=== PATIENT | male | born 1950 | race Caucasian/White ===

== ENCOUNTER 2020-03-24 12:41 | Outpatient (REF) | payer MEDICARE, SELFPAY | END 2020-03-24 12:42 | disposition home or self-care (01) | LOC: HO.HMGCLDS 12:41 | PROVIDERS: PCP Internal Medicine; Visit Provider Internal Medicine | DX: Z11.59 Encounter for screening for other viral diseases (principal) | CPT/HCPCS: 36415; 87635 ==

== ENCOUNTER 2020-04-08 07:57 | Outpatient (REF) | payer MEDICARE, SELFPAY ==
[2020-04-08 08:50] LABS: Glucose Urine UA NEG (NEG); Leukocyte Esterase Urine NEG (NEG); Nitrite Urine NEG (NEG); Urine Blood NEG (NEG); Urine Ketones NEG (NEG); Urine Protein NEG (NEG-TRACE)
[2020-04-08 08:51] LABS: Appearance Urine CLEAR; Color Urine YELLOW
[2020-04-08 09:05] LABS: RBC Urine 0 /HPF (0); Squamous Epithelial Cell Urine TRACE /LPF; WBC Urine 0 /HPF (0-4)
[2020-04-08 10:09] LABS: Alanine Aminotransferase 13 U/L (0-40); Albumin Level 3.9 g/dL (3.5-5.0); Alkaline Phosphatase 75 U/L (39-117); Anion Gap 8 (12-20); Aspartate Amino Transferase 15 U/L (5-37); Blood Urea Nitrogen 16 mg/dL (9-16); Calcium 8.8 mg/dL (8.4-10.2); Carbon Dioxide 29 mmol/L (22-29); Chloride 107 mmol/L (96-108); Cholesterol 169 mg/dL; Estimated Glomerular Filt Rate > 60; Glucose Random 88 mg/dL (60-115); HDL Cholesterol 31 mg/dL; LDL Cholesterol Calculated 119 mg/dl; Potassium 4.5 mmol/l (3.3-5.1); Prostate Specific Antigen < 0.05 ng/mL (<0.05-4.0); Sodium 139 mmol/L (135-145); Total Protein 6.6 g/dL (6.5-8.0); Triglycerides 95 mg/dL
== END 2020-04-08 07:58 | disposition home or self-care (01) ==
LOC: HO.LAB 07:57
PROVIDERS: PCP Internal Medicine; Visit Provider Internal Medicine
DX: E78.00 Pure hypercholesterolemia, unspecified (principal); N39.0 Urinary tract infection, site not specified; Z85.46 Personal history of malignant neoplasm of prostate
CPT/HCPCS: 80053; 80061; 81001; 84153

== ENCOUNTER 2020-04-13 08:17 | Outpatient (REF) | payer MEDICARE, SELFPAY ==
[2020-04-13 09:44] LABS: MANUAL DIFF FLAG NO
[2020-04-13 10:06] LABS: Basophils Absolute Auto 0.1 X10*3/uL (0.0-0.2); Eosinophils Absolute Auto 0.2 X10*3/uL (0.0-0.4); Eosinophils Percent Auto 4.4 % (0-4); Hematocrit 43.9 % (42-52); Hemoglobin 14.6 g/dl (14.0-18.0); Imm Gran Abs Auto 0.01 X10*3/uL (0.00-0.03); Imm Gran Pct Auto 0.2 % (0.0-0.4); Lymphocytes Absolute Auto 1.9 X10*3/uL (1.2-4.9); Lymphocytes Percent Auto 38.4 % (20-40); Mean Corpuscular HGB Conc 33.3 g/dl (31.0-36.0); Mean Corpuscular Hemoglobin 30.5 pg (27.0-33.0); Mean Corpuscular Volume 91.8 fL (80-98); Mean Platelet Volume 11.2 fL (9.4-12.4); Monocytes Absolute Auto 0.5 X10*3/uL (0.1-1.2); Monocytes Percent Auto 9.2 % (2-11); Neutrophils Absolute Auto 2.3 X10*3/uL (2.0-8.3); Neutrophils Percent Auto 46.8 % (45-73); Platelet Count 192 X10*3/uL (160-400); Red Blood Count 4.78 X10*6/uL (4.60-5.80); Red Cell Distribution Width 12.7 % (11.0-16.0)
[2020-04-13 11:01] LABS: Glucose Urine UA NEG (NEG); Leukocyte Esterase Urine NEG (NEG); Nitrite Urine NEG (NEG); Specific Gravity - Urine 1.015 (1.005-1.025); Urine Blood NEG (NEG); Urine Ketones NEG (NEG); Urine Protein NEG (NEG-TRACE)
[2020-04-13 11:05] LABS: Blood Urea Nitrogen 15 mg/dL (9-16); Calcium 8.9 mg/dL (8.4-10.2); Estimated Glomerular Filt Rate > 60; Glucose Fasting 85 mg/dL (60-99)
[2020-04-13 11:07] LABS: Appearance Urine HAZY; Color Urine YELLOW
[2020-04-13 11:23] LABS: WBC Urine 0-2 /HPF (0-4)
[2020-04-13 11:24] LABS: Mucus Urine TRACE /LPF; RBC Urine 0-2 /HPF (0); Renal Epithelial Cells Urine 1+ /LPF; Squamous Epithelial Cell Urine TRACE /LPF
[2020-04-13 11:27] LABS: TSH reflex Free T4 1.92 mIU/mL (0.32-4.0)
[2020-04-13 11:56] LABS: Anion Gap 12 (12-20); Carbon Dioxide 27 mmol/L (22-29); Chloride 108 mmol/L (96-108); Potassium 4.8 mmol/l (3.3-5.1); Sodium 142 mmol/L (135-145)
== END 2020-04-13 08:18 | disposition home or self-care (01) ==
LOC: HO.LAB 08:17
PROVIDERS: PCP Internal Medicine; Referring Provider Nurse Practitioner Family; Visit Provider Internal Medicine
DX: J45.909 Unspecified asthma, uncomplicated (principal); N39.0 Urinary tract infection, site not specified; E78.00 Pure hypercholesterolemia, unspecified
CPT/HCPCS: 36415; 80048; 81001; 84443; 85025

== ENCOUNTER 2020-06-03 08:13 | Outpatient (REF) | payer MEDICARE, SELFPAY ==
--- NOTE | 2020-06-03 08:18 | US_ITS ---
EXAMINATION: US THYROID CLINICAL INFORMATION: Dysphagia, unspecified. COMPARISON: None TECHNIQUE: Linear transducer alonso-scale and color Doppler examination with attention to the region of the thyroid. FINDINGS: SIZE: Measurements of the thyroid lobes and nodules are given in sagittal, anteroposterior and transverse dimensions respectively. Right Thyroid Lobe: 3.8 x 1.3 x 1.4 cm, volume 3.5 mL. Parenchyma: The gland echotexture is homogeneous. Thyroid vascularity is normal. Left Thyroid Lobe: 3.7 x 1.2 x 1.4 cm, volume 3.4 mL. Parenchyma: The gland echotexture is homogeneous. Thyroid vascularity is normal. Isthmus: 0.1 cm in maximum AP dimension. RIGHT THYROID LOBE: No nodules. ISTHMUS: No nodules. LEFT THYROID LOBE: No nodules. NODES: No lymphadenopathy is seen in the tissue surrounding the thyroid gland. US/US thyroid IMPRESSION: Normal thyroid ultrasound.
== END 2020-06-03 08:14 | disposition home or self-care (01) ==
LOC: HO.HMGCX 08:13
PROVIDERS: PCP Internal Medicine; Visit Provider Nurse Practitioner Family
DX: R13.10 Dysphagia, unspecified (principal)
CPT/HCPCS: 76536

== ENCOUNTER 2020-07-09 09:17 | Outpatient (REF) | payer MEDICARE, SELFPAY ==
--- NOTE | 2020-07-09 09:27 | XR_ITS ---
EXAMINATION: XR HIP, LEFT CLINICAL INFORMATION: Pain COMPARISON: None TECHNIQUE: Two views of the left hip. FINDINGS: Bone alignment is normal. No fracture or dislocation is seen. There are small superior lateral acetabular osteophytes. No joint space narrowing is seen. Soft tissues are unremarkable. XR/XR hip LT min 2V IMPRESSION: Mild degenerative changes with small osteophytes.
== END 2020-07-09 09:18 | disposition home or self-care (01) ==
LOC: HO.XRAY 09:17
PROVIDERS: PCP Internal Medicine; Visit Provider Internal Medicine
DX: M25.552 Pain in left hip (principal)
CPT/HCPCS: 73502

== ENCOUNTER → 2020-07-12 10:03 | Outpatient (REF) | payer MEDICARE, SELFPAY ==
--- NOTE | 2020-07-12 10:07 | ECG_ITS ---
Test Reason : CP Blood Pressure : / mmHG Vent. Rate : 067 BPM Atrial Rate : 067 BPM P-R Int : 134 ms QRS Dur : 090 ms QT Int : 436 ms P-R-T Axes : 074 047 028 degrees QTc Int : 460 ms Normal sinus rhythm Normal ECG No previous ECGs available Referred By: Martin Uribe Electronically Signed By:APRYL SNOW
== END ==
LOC: HO.CARD 10:03
PROVIDERS: PCP Internal Medicine; Visit Provider Physician Assistant
DX: Z01.818 Encounter for other preprocedural examination (principal)
CPT/HCPCS: 93005

== ENCOUNTER → 2020-07-21 14:43 | Outpatient (BNVA) | payer MEDICARE, SELFPAY | PROVIDERS: PCP Internal Medicine; Visit Provider Urology | DX: N28.1 Cyst of kidney, acquired (principal); C61 Malignant neoplasm of prostate; N39.3 Stress incontinence (female) (male) | CPT/HCPCS: 99202 ==

== ENCOUNTER 2020-08-11 08:49 | Outpatient (REF) | payer MEDICARE, SELFPAY ==
--- NOTE | ~2020-08-11 | XR_ITS ---
EXAMINATION: XR KNEE, RIGHT CLINICAL INFORMATION: Right knee pain. COMPARISON: None TECHNIQUE: Four views of the right knee. FINDINGS: Bones and soft tissues are normal. No fracture or joint effusion. Alignment is anatomic. Joint spaces are well maintained. No abnormal soft tissue calcification. XR/XR knee RT 4V IMPRESSION: Unremarkable right knee.
--- NOTE | ~2020-08-11 | XR_ITS ---
EXAMINATION: XR SHOULDER, RIGHT CLINICAL INFORMATION: Right shoulder pain. COMPARISON: None TECHNIQUE: Three views of the right shoulder. FINDINGS: Mild right acromioclavicular degenerative joint changes are seen. The right glenohumeral joint is unremarkable. There is no acute fracture or dislocation. The soft tissues are unremarkable. XR/XR shoulder RT min 2V IMPRESSION: Mild right acromioclavicular degenerative joint changes. No acute abnormality.
== END 2020-08-11 08:50 | disposition home or self-care (01) ==
LOC: HO.HMGCX 08:49
PROVIDERS: PCP Internal Medicine; Visit Provider Hospitalist
DX: M25.561 Pain in right knee (principal)
CPT/HCPCS: 73030; 73564

== ENCOUNTER 2020-10-24 15:00 | Outpatient (RCR) | payer MEDICARE, SELFPAY ==
--- NOTE | 2020-09-27 14:25 | MHC.PT.EP ---
[facility] [place] Office [place] Office [place] Office [address] Erik Julio [address] [phone] F: [phone] F: [phone] F: [phone] F: [phone] Physical Therapy Plan of Care Date of Evaluation: 09/27/20 Date of Surgery: Diagnosis: RIGHT shoulder pain Assessment: 70 YO MALE REF TO PT S/P FALL OUTDOORS ON ICE ON 08/09/20. 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 FUNCTIONALLY, Pt HAS DIFFIC SLEEPING, REACHING, TASKS W HORIZ ADD, LIFTING/ THROWING DUE TO Rt SH PAIN. HE WOULD BENEFIT FROM PT TO ADDRESS TRAUMATIC IMPINGEMENT / Rt SH TRAUMA. Frequency and Duration: The patient will be seen 2x 5 WKS Short Term Goals: Pt'S Rt SH PAIN DECR TO 2-3/ 10 IN 3 WKS Pt DEMON WFL AROM Rt SH W/O PAINFULL ARC IN 3 WKS Inside Sales Advertising Executive Goals: Pt INDEP W HEP AND SELF-SX MGMT TECHN FOR Rt SH IN 5 WKS Pt DEMON WFL RIGHT SH STRENGTH W FUNCTIONAL MOB Pt RESUME REG ADLs EVIDENT W IMPROVED SPADI BY 10 POINTS (39/130 AT EVAL) Treatment Plan: Modalities to reduce pain, spasms and effusion. Manual therapy to restore motion and function. Therapeutic exercise to improve strength and flexibility. Neuromuscular re-education for posture and balance. Therapeutic activities to return to functional activities of daily living. Electronically signed by: Florinda Case,PT Please sign and return to therapist. Thank you for your referral.
--- NOTE | 2020-10-24 17:37 | MHC.PT.PR ---
[facility] [place] Office [place] Office [place] Office [address] Erik Julio [address] [phone] F: [phone] F: [phone] F: [phone] F: [phone] Physical Therapy Progress Note Diagnosis: RIGHT shoulder pain Date of Surgery: Date of Evaluation: 09/27/20 Treatments to Date: 5 Cancellations to Date: 0 No Shows to Date: 0 Subjective: Pt NOTES Rt SH WORSE IN THE AM- THEN Rt SH IS BETTER UNTIL APPROX 6PM, HE APPLIES ICE Pain Score and Location: 4 RIGHT ANT SH Objective Measures: Rt SH AROM SUPINE: FLEX 150* W PAINFUL ARC; ABD 45* W PAIN AND WEAKNESS, ER (IN 90* ABD) TO 65* Rt SH AROM IN STANDING: FLEX 150* W PAINFUL ARC; EXT 45*, IR TO L4 LEVEL; ABLE TO HORIZ ABD Rt UE TO REACH Lt AXILLA Rt SH MMT: ER 4-/5; IR 5-/5, FE 3+/5, ABD 3+/5 (+) Rt NEER'S IMPINGEMENT, (+) DROP ARM Rt; (+) Rt SUBACROMIAL IRRIT AND (+)POP/CLICK Assessment: 10/24: Pt W (+) RESIDUAL Rt SH SUBACROMIAL PAIN AND RC WEAKNESS (ESPEC ABD, ER, FLEX)- HIS PAIN HAS NOT BEEN CONSISTENTLY REDUCED, HE HAS BEEN TRYING TO BE CAUTIOUS WITH HIS Rt UE W ADLs/ ETC; HE APPEARS TO HAVE IMPINGEMENT LIKE SXS (TRAUMATIC) W RC WEAKNESS; WE HAVE TRIALED KINESIOTAPE, ES, ICE, SOFT TISSUE MOBILIZATION, TRIGGER POINT WORK, ROM, AND SCAP/ POST RC STABILIZATION / STRENGTHENING- Pt HAS NOT IMPROVED CONSISTENTLY AND WITH HIS SXS WE ARE REF HIM BACK TO DR ELIZALDE AND PLACING PT ON HOLD. AT EVAL: 70 YO MALE REF TO PT S/P FALL OUTDOORS ON ICE ON 08/09/20. 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 FUNCTIONALLY, Pt HAS DIFFIC SLEEPING, REACHING, TASKS W HORIZ ADD, LIFTING/ THROWING DUE TO Rt SH PAIN. HE WOULD BENEFIT FROM PT TO ADDRESS TRAUMATIC IMPINGEMENT / Rt SH TRAUMA. PT Plan: Frequency and Duration: The patient will be seen 2x 5 WKS Treatment Plan: Therapeutic Exercise Dynamic Therapeutic Activities Neuromuscular Re-ed Manual Therapies Joint Mobilization Taping Home Exercise Program Patient Education Hot or Cold Pack Reviewed/ Agreed with Student Documentation: N/A Therapist: Thank you once again for your referral.
--- NOTE | 2020-11-29 13:49 | MHC.PT.DC ---
[facility] [place] Office [place] Office [place] Office [address] Erik Julio [address] [phone] F: [phone] F: [phone] F: [phone] F: [phone] Physical Therapy Discharge Report Diagnosis: RIGHT shoulder pain Date of Surgery: Date of Evaluation: 09/27/20 Date of Discharge: 11/29/20 Treatments to Date: 5 Cancellations to Date: 0 No Shows to Date: 0 Discharge Status: Independent with HEP Patient Elected to Stop Recommend MD Follow-up Discharge Summary: Pt W (+) RESIDUAL Rt SH SUBACROMIAL PAIN AND RC WEAKNESS (ESPEC ABD, ER, FLEX)- HIS PAIN HAS NOT BEEN CONSISTENTLY REDUCED, HE HAS BEEN TRYING TO BE CAUTIOUS WITH HIS Rt UE W ADLs/ ETC; HE APPEARS TO HAVE IMPINGEMENT LIKE SXS (TRAUMATIC) W RC WEAKNESS; WE HAVE TRIALED KINESIOTAPE, ES, ICE, SOFT TISSUE MOBILIZATION, TRIGGER POINT WORK, ROM, AND SCAP/ POST RC STABILIZATION / STRENGTHENING- Pt HAS NOT IMPROVED CONSISTENTLY AND WITH HIS SXS WE ARE REF HIM BACK TO DR ELIZALDE AND PLACING PT ON HOLD. Pt PHONED AND DISCHARGED HIMSELF AT THIS TIME. AT EVAL: 70 YO MALE REF TO PT S/P FALL OUTDOORS ON ICE ON 08/09/20. 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 FUNCTIONALLY, Pt HAS DIFFIC SLEEPING, REACHING, TASKS W HORIZ ADD, LIFTING/ THROWING DUE TO Rt SH PAIN. HE WOULD BENEFIT FROM PT TO ADDRESS TRAUMATIC IMPINGEMENT / Rt SH TRAUMA. Electronically signed by: Florinda Case PT. Please sign and return to therapist. Thank you for your referral.
== END 2020-11-29 13:51 | disposition other institution (70) ==
LOC: HO.PTCHIC 15:00
PROVIDERS: PCP Internal Medicine; Visit Provider Internal Medicine
DX: M25.511 Pain in right shoulder (principal)
CPT/HCPCS: 97014; 97110; 97140; 97162

== ENCOUNTER 2020-10-31 15:43 | Outpatient (REF) | payer MEDICARE, SELFPAY ==
--- NOTE | ~2020-10-31 | MR_ITS ---
EXAMINATION: MR KNEE WITHOUT CONTRAST, RIGHT CLINICAL INFORMATION: Pain in right knee COMPARISON: Radiograph dated 08/11/2020 TECHNIQUE: MRI of the knee without contrast was performed using routine sequences on a high-field scanner. FINDINGS: MENISCI: Medial Meniscus: A horizontal cleavage tear of the posterior horn and body extends to the free edge and undersurface. There is an associated multilocular cysts at the posteromedial joint capsule which may correspond to a parameniscal cyst or a loculated focus of fluid at the semimembranosus bursa. This fluid collection measures 2 cm in this dimension. Lateral Meniscus: Intact LIGAMENTS: Cruciate: ACL is intact. The PCL is thickened at its mid substance (1.3 cm) with a probable partial tear of the more medial fibers. The majority of the ligament remains intact. Collateral: Intact EXTENSOR MECHANISM: Intact ARTICULAR CARTILAGE/BONE: Patellofemoral Compartment: Articular cartilage of the patella is relatively well preserved. Moderate partial-thickness articular cartilage loss is present in the central trochlea over an area measuring 2.5 x 2 cm with areas of full-thickness chondral fissuring, articular cortical irregularity, and subchondral edema. Medial Compartment: Focal partial-thickness cartilage loss is present at the posterior weightbearing surface of the medial condyle. Lateral Compartment: Normal JOINT FLUID AND BURSAE: Small joint effusion. As noted above, there is a small focus of fluid in the region of the Smith's cyst and semitendinosus bursa which may correspond to a parameniscal cyst arising from the medial meniscus at the posterior horn. MR/MR knee RT wo con IMPRESSION: 1. Partial tear of the PCL at its mid substance. The majority of the ligament remains intact. 2. Horizontal cleavage tear of the posterior horn and body of the medial meniscus with a probable 2 cm posterior parameniscal cyst. 3. 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 More minimal osteoarthritis in the medial compartment. 4. Small joint effusion.
== END 2020-10-31 15:44 | disposition home or self-care (01) ==
LOC: HO.MRI 15:43
PROVIDERS: Visit Provider Internal Medicine
DX: M25.561 Pain in right knee (principal)
CPT/HCPCS: 73721

== ENCOUNTER 2020-11-01 15:47 | Outpatient (REF) | payer MEDICARE, SELFPAY ==
--- NOTE | ~2020-11-01 | MR_ITS ---
EXAMINATION: MR KNEE WITHOUT CONTRAST, LEFT CLINICAL INFORMATION: Unspecified fall, initial encounter. Patient reports left knee pain (anterior and posterior), weakness, symptoms for 2 months after fall injury, and no previous surgery. COMPARISON: None TECHNIQUE: MRI of the knee without contrast was performed using routine sequences on a high-field scanner. FINDINGS: MENISCI: Medial Meniscus: There is attenuation of the posterior horn of the medial meniscus with fraying of the attenuated and blunted inner margin as well as a superimposed small tear. There is moderate attenuation of the body. There is mild medial extrusion of the body. Lateral Meniscus: Intact. LIGAMENTS: Cruciate: Mild patchy and streaky increased T2 signal in the proximal posterior cruciate ligament may represent mucoid degeneration. The anterior cruciate ligament is intact. Collateral: Intact EXTENSOR MECHANISM: Intact ARTICULAR CARTILAGE/BONE: Patellofemoral Compartment: There are tiny marginal osteophytes. The cartilage is grossly intact. Medial Compartment: There is diffuse patchy snqjnxkm-ai-ngyp-grade cartilage loss in the weightbearing medial compartment. There are patchy areas of underlying bone marrow edema and a few small subchondral degenerative cysts. There are small marginal osteophytes. Lateral Compartment: Normal JOINT FLUID AND BURSAE: Small joint effusion. There is a small multiloculated ganglion cyst lateral to the lateral femoral condyle. MR/MR knee LT wo con IMPRESSION: 1. Degeneration, attenuation, fraying, and focal tear of the posterior horn of the medial meniscus. Degeneration and attenuation of the body with mild medial extrusion. 2. Nkailzzt-lm-ktzv-grade osteoarthritis in the medial compartment. 3. Small joint effusion. 4. Small lateral multiloculated ganglion cyst.
== END 2020-11-01 15:48 | disposition home or self-care (01) ==
LOC: HO.MRI 15:47
PROVIDERS: Visit Provider Internal Medicine
DX: M25.562 Pain in left knee (principal); Z91.81 History of falling
CPT/HCPCS: 73721

== ENCOUNTER 2020-11-02 15:43 | Outpatient (REF) | payer MEDICARE, SELFPAY ==
--- NOTE | ~2020-11-02 | MR_ITS ---
EXAMINATION: MR SHOULDER WITHOUT CONTRAST, RIGHT CLINICAL INFORMATION: Right shoulder pain. COMPARISON: Radiograph dated 08/11/2020. TECHNIQUE: MRI of the shoulder without contrast was performed on a high-field scanner. FINDINGS: ROTATOR CUFF: A full-thickness, complete tear of the supraspinatus tendon measures 3.3 cm AP with retraction of the torn fibers by 3 cm the level of the glenoid fossa. This tear extends anteriorly into the coracohumeral ligament. The infraspinatus tendon is intact posteriorly with probable undersurface fraying of the more anterior fibers in addition to the mild infraspinatus tendinosis. There is mild subscapularis tendinosis without discrete tear. No muscle atrophy or fatty infiltration. BICEPS: Normal. CORACOACROMIAL ARCH: The undersurface of the acromion is minimally curved with small anterolateral subacromial spur. Moderate acromioclavicular osteoarthritis. LABRUM/CAPSULE: A cleft of fluid undercutting the superior labrum from the anterosuperior through the posterosuperior quadrants is favored to correspond to a sublabral sulcus. A nondisplaced tear is also possible. Labrum is otherwise intact. There is mild capsular thickening and edema at the axillary pouch. GLENOHUMERAL JOINT/MARROW: Kpavs-un-ddxbchbv-sized glenohumeral joint effusion. Fluid extends into the subacromial-subdeltoid bursa. Small marginal osteophytes are present at the glenoid and humeral head. Small glenohumeral joint effusion. MR/MR shoulder RT wo con IMPRESSION: 1. Full-thickness, complete tear of the supraspinatus tendon measuring 3.3 x 3 cm (AP by longitudinal) without significant associated muscle atrophy. 2. Mild subscapularis and infraspinatus tendinosis 3. Moderate acromioclavicular osteoarthritis. Small anterolateral subacromial spur. 4. Minimal glenohumeral osteoarthritis.
== END 2020-11-02 15:44 | disposition home or self-care (01) ==
LOC: HO.MRI 15:43
PROVIDERS: Visit Provider Internal Medicine
DX: M25.511 Pain in right shoulder (principal)
CPT/HCPCS: 73221

== ENCOUNTER 2020-12-15 06:38 | Outpatient (REF) | payer MEDICARE, SELFPAY ==
[2020-12-15 07:21] LABS: MANUAL DIFF FLAG NO
[2020-12-15 07:26] LABS: Basophils Absolute Auto 0.1 X10*3/uL (0.0-0.2); Basophils Percent Auto 0.8 % (0-2); Eosinophils Absolute Auto 0.1 X10*3/uL (0.0-0.4); Eosinophils Percent Auto 1.7 % (0-4); Hemoglobin 15.1 g/dl (14.0-18.0); Imm Gran Abs Auto 0.02 X10*3/uL (0.00-0.03); Imm Gran Pct Auto 0.3 % (0.0-0.4); Lymphocytes Percent Auto 30.6 % (20-40); Mean Corpuscular HGB Conc 32.8 g/dl (31.0-36.0); Mean Corpuscular Hemoglobin 30.4 pg (27.0-33.0); Mean Corpuscular Volume 92.7 fL (80-98); Mean Platelet Volume 10.8 fL (9.4-12.4); Monocytes Absolute Auto 0.6 X10*3/uL (0.1-1.2); Monocytes Percent Auto 8.8 % (2-11); Neutrophils Absolute Auto 3.7 X10*3/uL (2.0-8.3); Neutrophils Percent Auto 57.8 % (45-73); Platelet Count 197 X10*3/uL (160-400); Red Blood Count 4.96 X10*6/uL (4.60-5.80); Red Cell Distribution Width 13.5 % (11.0-16.0); White Blood Count 6.4 X10*3/uL (4.8-10.8)
[2020-12-15 07:56] LABS: Alanine Aminotransferase 14 U/L (0-40); Albumin Level 4.1 g/dL (3.5-5.0); Alkaline Phosphatase 71 U/L (39-117); Anion Gap 10 (12-20); Aspartate Amino Transferase 15 U/L (5-37); Bilirubin Total 0.7 mg/dL (0.0-1.0); Blood Urea Nitrogen 22 mg/dL (9-16); Calcium 9.4 mg/dL (8.4-10.2); Carbon Dioxide 28 mmol/L (22-29); Chloride 110 mmol/L (96-108); Cholesterol 182 mg/dL; Estimated Glomerular Filt Rate > 60; Glucose Random 98 mg/dL (60-115); HDL Cholesterol 42 mg/dL; LDL Cholesterol Calculated 126 mg/dl; Potassium 4.8 mmol/L (3.3-5.1); Sodium 143 mmol/L (135-145); Total Protein 6.7 g/dL (6.5-8.0); Triglycerides 73 mg/dL
[2020-12-15 08:24] LABS: Glucose Urine UA NEG (NEG); Leukocyte Esterase Urine NEG (NEG); Nitrite Urine NEG (NEG); PH 5.5 (5.0-8.0); Prostate Specific Antigen Scr < 0.05 ng/mL (<0.05-4.0); Specific Gravity - Urine >= 1.030 (1.005-1.025); Thyroid Stimulating Hormone 1.72 uIU/mL (0.32-4.0); Urine Blood NEG (NEG); Urine Ketones NEG (NEG); Urine Protein NEG (NEG-TRACE)
[2020-12-15 08:25] LABS: Appearance Urine CLEAR; Color Urine YELLOW
[2020-12-15 08:32] LABS: Mucus Urine 1+ /LPF; RBC Urine 0 /HPF (0); Squamous Epithelial Cell Urine TRACE /LPF; WBC Urine 0-2 /HPF (0-4)
[2020-12-15 10:33] LABS: Folate 8.5 ng/mL (> or = 4.0); Vitamin B12 210 pg/mL (200-900)
== END 2020-12-15 06:39 | disposition home or self-care (01) ==
LOC: HO.LAB 06:38
PROVIDERS: PCP Internal Medicine; Visit Provider Internal Medicine
DX: Z12.5 Encounter for screening for malignant neoplasm of prostate (principal); E78.00 Pure hypercholesterolemia, unspecified
CPT/HCPCS: 36415; 80053; 80061; 81001; 82607; 82746; 84153; 84439; 84443; 85025

== ENCOUNTER 2021-03-29 11:13 | Outpatient (REF) | payer MEDICARE, SELFPAY ==
--- NOTE | 2021-03-29 11:20 | ECG_ITS ---
Test Reason : preproc exam Blood Pressure : / mmHG Vent. Rate : 063 BPM Atrial Rate : 063 BPM P-R Int : 112 ms QRS Dur : 092 ms QT Int : 432 ms P-R-T Axes : -10 057 034 degrees QTc Int : 442 ms Normal sinus rhythm Normal ECG When compared with ECG of 12-JUL-2020 10:19, No significant change was found Referred By: Myles Eduardo Electronically Signed By:MARIO ALBERTO SANCHEZ
[2021-03-29 11:37] LABS: MANUAL DIFF FLAG NO
[2021-03-29 11:57] LABS: Basophils Percent Auto 0.1 % (0-2); Eosinophils Absolute Auto 0.1 X10*3/uL (0.0-0.4); Eosinophils Percent Auto 1.4 % (0-4); Hematocrit 43.2 % (42-52); Hemoglobin 14.6 g/dl (14.0-18.0); Imm Gran Abs Auto 0.06 X10*3/uL (0.00-0.03); Imm Gran Pct Auto 0.7 % (0.0-0.4); Lymphocytes Absolute Auto 1.6 X10*3/uL (1.2-4.9); Lymphocytes Percent Auto 18.8 % (20-40); Mean Corpuscular HGB Conc 33.8 g/dl (31.0-36.0); Mean Corpuscular Hemoglobin 31.1 pg (27.0-33.0); Mean Corpuscular Volume 92.1 fL (80-98); Mean Platelet Volume 10.7 fL (9.4-12.4); Monocytes Absolute Auto 0.8 X10*3/uL (0.1-1.2); Monocytes Percent Auto 9.7 % (2-11); Neutrophils Absolute Auto 5.7 X10*3/uL (2.0-8.3); Neutrophils Percent Auto 69.3 % (45-73); Platelet Count 199 X10*3/uL (160-400); Red Blood Count 4.69 X10*6/uL (4.60-5.80); White Blood Count 8.3 X10*3/uL (4.8-10.8)
[2021-03-29 12:27] LABS: Anion Gap 10 (12-20); Blood Urea Nitrogen 17 mg/dL (9-16); Calcium 9.2 mg/dL (8.4-10.2); Carbon Dioxide 27 mmol/L (22-29); Chloride 108 mmol/L (96-108); Estimated Glomerular Filt Rate > 60; Glucose Random 89 mg/dL (60-115); Potassium 4.7 mmol/L (3.3-5.1); Sodium 140 mmol/L (135-145)
== END 2021-03-29 11:14 | disposition home or self-care (01) ==
LOC: HO.LAB 11:13
PROVIDERS: PCP Internal Medicine; Visit Provider Internal Medicine
DX: Z01.818 Encounter for other preprocedural examination (principal)
CPT/HCPCS: 36415; 80048; 85025; 93005

== ENCOUNTER 2021-07-11 10:44 | Outpatient (REF) | payer MEDICARE, SELFPAY ==
--- NOTE | ~2021-07-11 | US_ITS ---
EXAMINATION: US RETROPERITONEAL LIMITED (RENAL ONLY) CLINICAL INFORMATION: Calculus of kidney. COMPARISON: Ultrasound kidneys and bladder 03/04/2020. CT abdomen and pelvis 05/03/2015. X-ray abdomen KUB 03/29/2015. Ultrasound abdomen 07/05/2008. TECHNIQUE: Real-time imaging of the kidneys. FINDINGS: RIGHT KIDNEY: 11.0 x 6.1 x 5.6 cm (SAG x AP x TRV). The kidney is normal in size, contour, and echogenicity. There is renal cortical thinning. There is a 1.4 x 1.3 x 1.2 cm cyst in the midpole. No renal calculi or hydronephrosis. LEFT KIDNEY: 11.2 x 5.2 x 4.2 cm (SAG x AP x TRV). The kidney is normal in size, contour, and echogenicity. There is renal cortical thinning. There is a 7.8 x 7.6 x 7.6 cm in the medial upper pole. No renal calculi or hydronephrosis. US/US renal BI IMPRESSION: Bilateral renal cortical thinning. Bilateral renal cysts.
== END 2021-07-11 10:45 | disposition home or self-care (01) ==
LOC: HO.US 10:44
PROVIDERS: PCP Internal Medicine; Visit Provider Urology
DX: N20.0 Calculus of kidney (principal)
CPT/HCPCS: 76775

== ENCOUNTER → 2021-07-28 08:28 | Outpatient (BNVA) | payer MEDICARE, SELFPAY | PROVIDERS: Visit Provider Urology | DX: C61 Malignant neoplasm of prostate (principal); N28.1 Cyst of kidney, acquired; N39.3 Stress incontinence (female) (male) | CPT/HCPCS: Q3014 ==

== ENCOUNTER 2021-08-16 10:15 | Outpatient (REF) | payer MEDICARE, SELFPAY ==
--- NOTE | ~2021-08-16 | US_ITS ---
EXAMINATION: US VENOUS ULTRASOUND WITH DOPPLER LOWER EXTREMITY, LEFT CLINICAL INFORMATION: Swelling COMPARISON: None TECHNIQUE: Ultrasound of the deep veins is performed from the hip to the calf with compression sonography and color and pulse Doppler assessment. Spectral analysis with color-flow imaging is performed. FINDINGS: There is normal venous compression and respiratory variation and augmented flow. The visualized common femoral vein, superficial femoral vein, profunda femoral vein, and the popliteal vein shows no evidence of deep venous thrombosis. Calf veins are not well evaluated. There appears to be slow flow in the visualized calf veins. There is a fluid collection in the medial popliteal fossa measuring 1 x 3.5 cm in sagittal and AP dimension questionable for a Smith's cyst. The contralateral right common femoral vein is patent. US/US venous duplex LE LT IMPRESSION: No DVT demonstrated in the left lower extremity. Calf veins not well evaluated. Fluid collection in the popliteal fossa questionable for a Smith's cyst.
== END 2021-08-16 10:16 | disposition home or self-care (01) ==
LOC: HO.US 10:15
PROVIDERS: PCP Internal Medicine; Visit Provider Internal Medicine
DX: R60.0 Localized edema (principal); M79.89 Other specified soft tissue disorders
CPT/HCPCS: 93971

== ENCOUNTER → 2021-09-08 09:29 | Outpatient (BNVA) | payer MEDICARE, SELFPAY | PROVIDERS: PCP Internal Medicine; Visit Provider Internal Medicine Pulmonary Disease | DX: R05.3 Chronic cough (principal); K21.9 Gastro-esophageal reflux disease without esophagitis; Z77.090 Contact with and (suspected) exposure to asbestos | CPT/HCPCS: 99202 ==

== ENCOUNTER 2021-09-13 08:22 | Outpatient (REF) | payer MEDICARE, SELFPAY ==
--- NOTE | ~2021-09-13 | XR_ITS ---
EXAMINATION: XR CHEST CLINICAL INFORMATION: Asbestos exposure COMPARISON: Previous chest x-ray February 2020 TECHNIQUE: 2 views of the chest were obtained. FINDINGS: The cardiac and mediastinal contours are stable. The lungs are clear. There is no pleural effusion or pneumothorax. There are mild degenerative changes of the spine. XR/XR chest 2V IMPRESSION: Normal chest.
== END 2021-09-13 08:23 | disposition home or self-care (01) ==
LOC: HO.XRAY 08:22
PROVIDERS: PCP Internal Medicine; Visit Provider Internal Medicine Pulmonary Disease
DX: Z77.090 Contact with and (suspected) exposure to asbestos (principal)
CPT/HCPCS: 71046

== ENCOUNTER 2021-10-20 09:32 | Outpatient (REF) | payer MEDICARE, SELFPAY ==
--- NOTE | 2021-10-20 13:15 | PFT_ITS ---
INDICATION: Asbestos exposure. SPIROMETRY: FEV1 to FVC of 85% with an FEV1 of 3.91 L, which is 142% predicted, an FVC of 4.61, which is 121% predicted. No significant response to bronchodilators noted. Maximum voluntary ventilation 129% predicted. Total lung capacity 110% predicted. Diffusion capacity, DLCO 67% predicted. COMPARISONS: PFTs from 2017. INTERPRETATION: No obstructive nor restrictive ventilatory defects are appreciated. No significant response to bronchodilators noted. Normal maximum voluntary ventilation. Lung volumes are within normal limits. The patient does have an isolated mild diffusion impairment. This could be secondary to occult interstitial lung conditions. Should also correct for hemoglobin. When compared to 2017, significant decrease in the FVC, trend decrease in the FEV1, trend decrease in the total lung capacity, and a significant decrease in the diffusion capacity. Clinical correlation warranted. MD JONATHON Joseph/MARSHA / [id number]
== END 2021-10-20 09:33 | disposition home or self-care (01) ==
LOC: HO.RESP 09:32
PROVIDERS: PCP Internal Medicine; Visit Provider Internal Medicine Pulmonary Disease
DX: Z77.090 Contact with and (suspected) exposure to asbestos (principal)
CPT/HCPCS: 94060; 94727; 94729

== ENCOUNTER 2021-10-26 09:47 | Outpatient (REF) | payer MEDICARE, SELFPAY ==
--- NOTE | ~2021-10-26 | CT_ITS ---
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 COMPARISON: Chest 09/13/2021 TECHNIQUE: Multidetector volumetric CT imaging of the chest was done. Axial MIP volume rendering provided. Sagittal and coronal reformatted images were obtained. This CT examination was performed using dose optimization techniques as appropriate, variously including the following: *Automated exposure control *Adjustment of mA and/or kV according to patient size (this includes techniques or standardized protocols for targeted exams where dose is matched to indication/reason for exam; i.e. extremities or head) *Use of iterative reconstruction technique DLP: 207 mGy-cm FINDINGS: SERVER MANAGER: Unremarkable. LUNGS: The lungs are well-expanded and clear acute pneumonic process. There is a 2 mm nodule right major fissure axial image 85/8 likely cyst intrafissural lymph node. Similar findings are seen in the left major fissure on axial image 112/8. There is a 2 mm nodule right lower lobe peripherally based axial image 138/8. No additional nodules, mass or consolidation seen. No groundglass density. There is no evidence of bronchiectasis. MEDIASTINUM: The thyroid lobes are asymmetrical but unremarkable. The central trachea and the bronchi widely patent. Heart size and the great vessels are normal caliber there is no pericardial effusion seen. There is minimal ventral calcification. PLEURA: There is no pleural effusion. No pleural mass or thickening. No calcified pleural plaque seen. AXILLA: Small shotty lymph nodes in the axilla. The chest wall is unremarkable. UPPER ABDOMEN: There is 6 mm hypodensity segment 7/8 right hepatic lobe. No additional lesions seen there is no intrahepatic ductal dilatation. Gallbladder, pancreas, spleen and bilateral adrenal glands are unremarkable. OSSEOUS STRUCTURES: No lytic or sclerotic process seen. CT/CT chest wo con IMPRESSION: Small intrafissural lymph nodes as described above. There is 2 mm nodule right lower lobe. No pleural calcification, abnormal mediastinal or axillary lymphadenopathy. Punctate hypodensity right hepatic lobe, too small to correctly characterize. Fleischner guidelines were followed.
== END 2021-10-26 09:48 | disposition home or self-care (01) ==
LOC: HO.CT 09:47
PROVIDERS: Visit Provider Internal Medicine Pulmonary Disease
DX: Z77.090 Contact with and (suspected) exposure to asbestos (principal)
CPT/HCPCS: 71250

== ENCOUNTER → 2021-11-02 13:17 | Outpatient (BNVA) | payer MEDICARE, SELFPAY | PROVIDERS: PCP Internal Medicine; Visit Provider Internal Medicine Pulmonary Disease | DX: R05.3 Chronic cough (principal) | CPT/HCPCS: 99212 ==

== ENCOUNTER 2021-12-19 07:21 | Outpatient (REF) | payer MEDICARE, SELFPAY ==
[2021-12-19 07:35] LABS: MANUAL DIFF FLAG NO
[2021-12-19 07:46] LABS: Basophils Absolute Auto 0.1 X10*3/uL (0.0-0.2); Eosinophils Absolute Auto 0.2 X10*3/uL (0.0-0.4); Eosinophils Percent Auto 3.6 % (0-4); Hematocrit 42.1 % (42.0-52.0); Imm Gran Abs Auto 0.02 X10*3/uL (0.00-0.03); Imm Gran Pct Auto 0.3 % (0.0-0.4); Lymphocytes Absolute Auto 2.4 X10*3/uL (1.2-4.9); Lymphocytes Percent Auto 40.4 % (20-40); Mean Corpuscular HGB Conc 33.3 g/dl (31.0-36.0); Mean Corpuscular Hemoglobin 30.1 pg (27.0-33.0); Mean Corpuscular Volume 90.5 fL (80.0-98.0); Mean Platelet Volume 10.8 fL (9.4-12.4); Monocytes Absolute Auto 0.6 X10*3/uL (0.1-1.2); Monocytes Percent Auto 9.7 % (2-11); Neutrophils Absolute Auto 2.6 x10*3/uL (2.0-8.3); Platelet Count 195 X10*3/uL (160-400); Red Blood Count 4.65 X10*6/uL (4.60-5.80); Red Cell Distribution Width 13.5 % (11.0-16.0); White Blood Count 5.9 X10*3/uL (4.8-10.8)
[2021-12-19 08:31] LABS: Alanine Aminotransferase 11 U/L (0-40); Albumin Level 3.9 g/dL (3.5-5.0); Alkaline Phosphatase 80 U/L (39-117); Anion Gap 11 (12-20); Aspartate Amino Transferase 14 U/L (5-37); Bilirubin Total 0.4 mg/dL (0.0-1.0); Blood Urea Nitrogen 23 mg/dL (9-16); Calcium 8.9 mg/dL (8.4-10.2); Carbon Dioxide 25 mmol/L (22-29); Chloride 110 mmol/L (96-108); Cholesterol 182 mg/dL; Estimated Glomerular Filt Rate > 60; Glucose Random 97 mg/dL (60-115); HDL Cholesterol 36 mg/dL; LDL Cholesterol Calculated 131 mg/dl; Sodium 141 mmol/L (135-145); Total Protein 6.6 g/dL (6.5-8.0); Triglycerides 76 mg/dL
[2021-12-19 08:54] LABS: Thyroid Stimulating Hormone 3.02 uIU/mL (0.32-4.0)
[2021-12-19 09:26] LABS: Folate 6.2 ng/mL (> or = 4.0); Vitamin B12 1751 pg/mL (200-900)
== END 2021-12-19 07:22 | disposition home or self-care (01) ==
LOC: HO.LAB 07:21
PROVIDERS: PCP Internal Medicine; Visit Provider Internal Medicine
DX: E78.00 Pure hypercholesterolemia, unspecified (principal)
CPT/HCPCS: 36415; 80053; 80061; 82607; 82746; 84439; 84443; 85025

== ENCOUNTER 2022-03-12 09:23 | Day surgery (SDC) | payer MEDICARE, SELFPAY ==
[2022-03-07 11:53] VITALS: BMI 25.9
--- NOTE | 2022-03-09 08:48 | HO.ANESPROP2 ---
Documented by User: Celina Tran NP 03/09/22 08:53 HPI - Anesthesia Eval Consult details Narrative: 72yo M for Colonoscopy PMF Active Problems Active Problems: All Active Problems (Updated 03/07/22 @ 11:18 by Maxine Gurrola, MART) Urinary tract infection (Acute) Dysphagia (Acute) Hip pain, left (Acute) Left cataract (Acute) Complex renal cyst (Acute) Prostate cancer (Acute) Stress incontinence, male (Acute) Right shoulder pain (Acute) Right knee pain (Acute) Tick bite (Acute) Fall (Acute) Knee pain, left (Acute) Acute meniscal tear of knee (Acute) Osteoarthritis of knees, bilateral (Acute) Vitamin B12 deficiency (Acute) Travel advice encounter (Acute) Low back pain (Acute) Generalized anxiety disorder (Acute) Tubular adenoma of colon (Acute) Peripheral neuropathy (Acute) Renal cyst (Acute) Medicare annual wellness visit, initial (Acute) Stress incontinence (Acute) Constipation (Acute) Left leg swelling (Acute) Numbness of toes (Acute) H/O asbestos exposure (Acute) Chronic cough (Acute) Impacted cerumen of both ears (Acute) Eczema (Acute) Peripheral vascular disease (Acute) COVID-19 virus infection (Acute) History of arthroplasty of left knee (Acute) Asthma (Acute) GERD (gastroesophageal reflux disease) (Acute) Hypercholesterolemia (Acute) Past Medical History Medical History Asbestos exposure Asthma Diastasis recti GERD (gastroesophageal reflux disease) History of prostate cancer Hypercholesterolemia Peptic ulcer disease Post herpetic neuralgia Pulmonary nodule Vitamin D deficiency Family History Family History Father Colon cancer Mother CVD (cardiovascular disease) Myocardial infarction Surgical History Surgical History History of arthroplasty of left knee History of inguinal hernia repair History of nephrolithiasis History of prostatectomy History of tonsillectomy History of total left knee replacement Hx of colonoscopy Social History Social History Housing: House Alcohol intake: never Patient Tobacco Use Status: Never used Tobacco e-Cigarette/Vaping Use: Never Used Second Hand Smoke Exposure: No Are you DNR?: No Advance Directives: No Advance Directives Information Provided: Yes Recently lost weight without trying: No Nutrition Risks: No Nutritional Risk service: No Current occupational status: retired Cognitive needs: No Hearing needs: Yes Vision needs: Yes Meds Allergies Allergy/AdvReac Type Severity Reaction Status Date / Time SALT Allergy Unknown Unknown Uncoded 03/07/22 11:29 SIMVASTATIN Allergy Unknown heart burn Uncoded 03/07/22 11:29 from strong dosage Home Medications Medication Instructions Recorded Confirmed Last Taken Type cholecalciferol (vitamin D3) 25 25 mcg PO DAILY 04/12/20 03/07/22 Unknown History mcg (1,000 unit) capsule cyanocobalamin (vitamin B-12) 1,000 mcg PO DAILY 03/29/21 03/07/22 Unknown History 1,000 mcg capsule Exam Exam Date and Time: March 09, 2022 0848 Height,Weight and Vital Signs: Height 5 ft 8 in Weight 77.564 kg Pertinent Lab Results Pertinent Lab Results: Laboratory Tests 12/19/21 12/19/21 07:34 07:34 WBC 5.9 Hgb 14.0 Hct 42.1 Plt Count 195 Sodium 141 Potassium 5.0 Chloride 110 H Carbon Dioxide 25 BUN 23 H Creatinine 1.02 Narrative Narrative: EKG 2020 Vent. Rate : 063 BPM ? ? Atrial Rate : 063 BPM ?? P-R Int : 112 ms? QRS Dur : 092 ms ? ? QT Int : 432 ms ? ? ? P-R-T Axes : -10 057 034 degrees ?? QTc Int : 442 ms ? Normal sinus rhythm Normal ECG When compared with ECG of 12-JUL-2020 10:19, No significant change was found Assessment and Plan Assessment Anesthesia Assessment: Chart Reviewed Documented by User: Danna Cabrera MD 03/12/22 10:18 PMFSH Active Problems Active Problems: All Active Problems (Updated 03/07/22 @ 11:18 by Maxine Gurrola RN) Urinary tract infection (Acute) Dysphagia (Acute) Hip pain, left (Acute) Left cataract (Acute) Complex renal cyst (Acute) Prostate cancer (Acute) Stress incontinence, male (Acute) Right shoulder pain (Acute) Right knee pain (Acute) Tick bite (Acute) Fall (Acute) Knee pain, left (Acute) Acute meniscal tear of knee (Acute) Osteoarthritis of knees, bilateral (Acute) Vitamin B12 deficiency (Acute) Travel advice encounter (Acute) Low back pain (Acute) Generalized anxiety disorder (Acute) Tubular adenoma of colon (Acute) Peripheral neuropathy (Acute) Medicare annual wellness visit, initial (Acute) Constipation (Acute) Left leg swelling (Acute) Numbness of toes (Acute) H/O asbestos exposure (Acute) Chronic cough (Acute) Impacted cerumen of both ears (Acute) Eczema (Acute) Peripheral vascular disease (Acute) COVID-19 virus infection (Acute) History of arthroplasty of left knee (Acute). S/p L TKR 6 months ago Asthma (Acute)- inhaler prn GERD (gastroesophageal reflux disease) (Acute) Hypercholesterolemia (Acute) Past Medical History Medical History Asbestos exposure Asthma Diastasis recti GERD (gastroesophageal reflux disease) History of prostate cancer Hypercholesterolemia Peptic ulcer disease Post herpetic neuralgia Pulmonary nodule Vitamin D deficiency Family History Family History Father Colon cancer Mother CVD (cardiovascular disease) Myocardial infarction Family history of problems with anesthesia: No Surgical History Surgical History History of arthroplasty of left knee History of inguinal hernia repair History of nephrolithiasis History of prostatectomy History of tonsillectomy History of total left knee replacement Hx of colonoscopy History of Problems with Anesthesia: No Social History Social History Housing: House Alcohol intake: never Patient Tobacco Use Status: Never used Tobacco e-Cigarette/Vaping Use: Never Used Second Hand Smoke Exposure: No Are you DNR?: No Advance Directives: No Advance Directives Information Provided: Yes Recently lost weight without trying: No Nutrition Risks: No Nutritional Risk service: No Current occupational status: retired Cognitive needs: No Hearing needs: Yes Vision needs: Yes Meds Allergies Allergy/AdvReac Type Severity Reaction Status Date / Time SALT Allergy Unknown Unknown Uncoded 03/07/22 11:29 SIMVASTATIN Allergy Unknown heart burn Uncoded 03/07/22 11:29 from strong dosage Home Medications Medication Instructions Recorded Confirmed Last Taken Type cholecalciferol (vitamin D3) 25 25 mcg PO DAILY 04/12/20 03/07/22 Unknown History mcg (1,000 unit) capsule cyanocobalamin (vitamin B-12) 1,000 mcg PO DAILY 03/29/21 03/07/22 Unknown History 1,000 mcg capsule Exam Height,Weight and Vital Signs: Height 5 ft 8 in Weight 77.564 kg Vital Signs Temp Pulse Resp BP Pulse Ox O2 Del Method 03/12/22 09:40 98 F 71 18 143/78 H 97 Room Air Airway Mallampati Class: II TM Dist: >3cm Neck ROM: Full Loose/Missing/Broken Teeth: No Heart: RRR Lungs: CTAB Assessment and Plan Assessment Anesthesia Assessment: Anesthesia Plan Discussed Final Anesthetic Review Family History of Problems with Anesthesia: No History of Problems with Anesthesia: No NPO: Yes ASA Class: III Final Preanesthetic Review: No Changes in Pt Med Stat, Meds/Allgs Chart Reviewed, Consent Obtained/Reviewed and Anes Risks/Benef Reviewed Patient Risk: Intermediate Procedure Risk: Low Assessment/Block/Sedation in SS: Assess/Block/Sedation-SS Anesthetic Plan Anesthetic Plan: MAC: Disposition: Standard PACU
[2022-03-12 09:40] VITALS: BP 143/78; PULSE 71; RESP 18; TEMP 36.6; O2SAT 97
[2022-03-12] MEDS: Lactated Ringers 1,000 ML 100 ML IVCONT (09:45)
[2022-03-12] MEDS: Gentamicin Sulfate/NaCl 80 MG/100 ML PIGGYBACK 100 MG IV (09:47)
[2022-03-12] MEDS: Albuterol Sulfate (0.083%) 2.5 MG/3 ML VIAL.NEB INHALE (09:55)
[2022-03-12 11:43] VITALS: BP 88/61; PULSE 82; RESP 16; TEMP 36.1; O2SAT 94
--- NOTE | 2022-03-12 11:46 | P.BOP_ITS ---
Brief Operative Note Date of Service: 03/12/22 Pre-op diagnosis: Screening Post-op diagnosis: other (Diverticulosis) Procedure: Colonoscopy to the cecum and TI Surgeon: Musa Winchester Anesthesia: MAC Was an Mercury Cracking Tester used for this Procedure?: No Estimated blood loss (mL): 0 Pathology: none sent Condition: stable Disposition: PACU
[2022-03-12 11:58] VITALS: BP 111/66; PULSE 64; RESP 16; O2SAT 99
[2022-03-12 12:13] VITALS: BP 109/65; PULSE 66; RESP 16; TEMP 36.2; O2SAT 98
--- NOTE | 2022-03-12 12:35 | OP_ITS ---
SURGEON: Musa Winchester MD INDICATIONS: The patient presents for followup of colorectal cancer screening and personal history of tubular adenoma of the colon. Full consent has been obtained from him for this, including risks of bleeding and perforation. PREOPERATIVE DIAGNOSIS: Colorectal cancer screening and personal history of tubular adenoma of the colon. POSTOPERATIVE DIAGNOSIS: Colorectal cancer screening and personal history of tubular adenoma of the colon, diverticulosis, and internal hemorrhoids. PROCEDURE PERFORMED: Colonoscopy to the cecum and terminal ileum. ESTIMATED BLOOD LOSS: COMPLICATIONS: ANESTHESIA: Monitored anesthesia care. ASSISTANTS: SPECIMENS: DESCRIPTION OF PROCEDURE: The patient was placed in the left lateral decubitus position. The digital rectal exam revealed no abnormalities. The Olympus video pediatric colonoscope was entered into the rectum and advanced easily to the cecum. Once in the cecum, I did identify a normal-appearing cecal pouch with appendiceal orifice and a normal-appearing ileocecal valve. The terminal ileum was cannulated and appeared normal. The scope was withdrawn back in the colon. The entire cecum and ileocecal valve appeared normal. The scope was slowly withdrawn assessing all mucosal surfaces carefully. Preparation was excellent. I did not visualize any sign of polyps, colitis, nor angiodysplasia. There was a mild amount of sigmoid diverticulosis. In the rectum, scope was retroflexed visualizing internal hemorrhoids, but no other pathology. The rectal mucosa appeared normal. The scope was straightened and withdrawn from the patient. He tolerated the procedure well and was returned to the recovery area in stable condition. IMPRESSION: 1. Sigmoid diverticulosis. 2. Internal hemorrhoids. PLAN: I would recommend a repeat colonoscopy in 5 years for further screening. He will otherwise see me on a p.r.n. basis. MD KATIA Graham/MARSHA / [phone]
== END 2022-03-12 12:50 | disposition home or self-care (01) ==
PROVIDERS: PCP Internal Medicine; Visit Provider Internal Medicine
PROC: 0DJD8ZZ Inspection of Lower Intestinal Tract, Via Natural or Artificial Opening Endoscopic (ICD-10-PCS; CPT 45378; principal; 2022-03-12 10:30)
DX: Z12.11 Encounter for screening for malignant neoplasm of colon (principal); Z86.010 Personal history of colon polyps; Z80.0 Family history of malignant neoplasm of digestive organs; K57.30 Diverticulosis of large intestine without perforation or abscess without bleeding; K64.8 Other hemorrhoids; K21.9 Gastro-esophageal reflux disease without esophagitis; E78.00 Pure hypercholesterolemia, unspecified; R91.1 Solitary pulmonary nodule; J45.909 Unspecified asthma, uncomplicated; Z79.899 Other long term (current) drug therapy; Z88.8 Allergy status to other drugs, medicaments and biological substances; Z77.090 Contact with and (suspected) exposure to asbestos; Z87.11 Personal history of peptic ulcer disease; Z85.46 Personal history of malignant neoplasm of prostate; Z86.16 Personal history of COVID-19; Z96.652 Presence of left artificial knee joint
CPT/HCPCS: G0105; J0290; J1580

== ENCOUNTER 2022-04-07 12:24 | Emergency (ER) | payer MEDICARE, SELFPAY ==
--- NOTE | ~2022-04-07 | XR_ITS ---
EXAMINATION: XR FINGER, LEFT CLINICAL INFORMATION: [address] [place] [address] stuck in left thumb. COMPARISON: None TECHNIQUE: 3 views of the left thumb. FINDINGS: There is left fish hook stuck in the soft tissues of distal left thumb. No additional radiopaque foreign body seen. There is no fracture. Loss of PIP and DIP joints throughout all digits and first carpometacarpal joint space is seen consistent with arthritis. The soft tissues are grossly unremarkable. XR/XR finger LT min 2V IMPRESSION: There is left fish hook stuck in the soft tissues of distal left thumb. No fracture seen
[2022-04-07 12:46] VITALS: BP 131/91; PULSE 75; RESP 19; TEMP 36.6; O2SAT 95; BMI 26.4
--- NOTE | 2022-04-07 12:55 | ED_ITS ---
HPI - Extremity Problem General Chief complaint: Extremity Injury, Upper Stated complaint: fish hook in thumb Time Seen by Provider: 04/07/22 12:52 Source: patient Mode of arrival: ambulatory Limitations: no limitations History of Present Illness HPI Narrative: 72 yo male who is ambidextrous presents with fishhook in left thumb which occurred his morning while fishing. Tetanus UTD No weakness, numbness, tingling. Related Data Home Medications Medication Instructions Recorded Confirmed cholecalciferol (vitamin D3) 25 25 mcg PO DAILY 04/12/20 03/07/22 mcg (1,000 unit) capsule cyanocobalamin (vitamin B-12) 1,000 mcg PO DAILY 03/29/21 03/07/22 1,000 mcg capsule Previous Rx's Medication Instructions Recorded simvastatin 5 mg tablet 5 mg PO BEDTIME #90 tabs 07/24/21 omeprazole 40 mg capsule,delayed 40 mg PO BID 90 days #180 caps 11/27/21 release triamcinolone acetonide 0.1 % 1 appl topical BID 1 week #30 grams 11/27/21 topical cream amoxicillin 875 mg-potassium 1 tab PO BID #14 tabs 04/07/22 clavulanate 125 mg tablet Allergies Allergy/AdvReac Type Severity Reaction Status Date / Time SALT Allergy Unknown Unknown Uncoded 03/07/22 11:29 SIMVASTATIN Allergy Unknown heart burn Uncoded 03/07/22 11:29 from strong dosage Review of Systems Review of Systems: Yes all other systems are reviewed and are negative Constitutional: Constitutional: Reports no additional constitutional complaints, Denies fever(s) and Denies weakness Eyes: Eyes: Reports no additional eye complaints ENT: Reports system reviewed and no additional complaints, except as documented Cardiovascular: Cardiovascular: Reports no additional cardiovascular complaints, Denies acrocyanosis, Denies chest pain and Denies dyspnea Respiratory: Respiratory: Reports no additional respiratory complaints, Denies cough and Denies dyspnea Gastrointestinal: Gastrointestinal: Reports no additional gastrointestinal complaints, Denies nausea and Denies vomiting Musculoskeletal: Musculoskeletal: Reports no additional musculoskeletal comp laints, Reports arthralgias, Denies joint swelling, Denies limited range of motion, Denies numbness and Denies tingling Integumentary/Breasts: Skin/Breast: Reports system reviewed and no additional complaints, except as docu and Denies rash Neurologic: Reports system reviewed and no additional complaints, except as documented, Denies numbness, Denies tingling and Denies weakness PMFSH Past Medical History Attestation statement: The following information was validated with the patient. Source: old records reviewed and nursing notes reviewed Medical History Asbestos exposure Asthma Diastasis recti GERD (gastroesophageal reflux disease) History of prostate cancer Hypercholesterolemia Peptic ulcer disease Post herpetic neuralgia Pulmonary nodule Vitamin D deficiency Surgical History History of arthroplasty of left knee History of inguinal hernia repair History of nephrolithiasis History of prostatectomy History of tonsillectomy History of total left knee replacement Hx of colonoscopy Family History Family History Father Colon cancer Mother CVD (cardiovascular disease) Myocardial infarction Social History Social History Housing: House Alcohol intake: never Patient Tobacco Use Status: Never used Tobacco e-Cigarette/Vaping Use: Never Used Second Hand Smoke Exposure: No Advance Directives: No Advance Directives Information Provided: No service: No Current occupational status: retired Cognitive needs: No Hearing needs: Yes Vision needs: Yes Physical Exam Vital Signs: Vital Signs: Last Vital Signs Temp 97.9 F 04/07/22 12:46 Pulse 75 04/07/22 12:46 Resp 19 04/07/22 12:46 BP 131/91 H 04/07/22 12:46 Pulse Ox 95 04/07/22 12:46 O2 Del Method 04/07/22 12:46 BMI result Body Mass Index 26.4 Const: General: cooperative, healthy appearing, comfortable and no acute distress Orientation/consciousness: patient oriented x3 Limitations: no limitations HEENT: Head: Yes normal to inspection Eyes: General: appearance normal, both eyes and all related structures Neck: Neck: Yes normal visual inspection Resp: Effort & Inspection: normal respiratory effort Cardio: Peripheral pulses: Peripheral pulses 2+ throughout Skin: General skin exam: no rashes or lesions noted Neuro: General: patient oriented x3, moves all extremities, no focal motor deficits and normal sensation to monofilament Cognition (Neuro): normal cognition Gait exam (Neuro): Normal gait present Extrem: Other: To the left thumb there is a 3 pronged fishhook with 1 prong that is imbedded within the volar aspect of the subcutaneous tissue Neurovascularly intact distally Full range of motion General: Yes normal to inspection Course Course Course Narrative: See procedure note for fishhook removal. Patient will be treated with prophylactic antibiotics. Reviewed wound care at home. Reviewed worrisome signs and symptoms of when to return to the emergency room. Comfortable discharge home. MDM - Extremity (Nontraumatic) MDM Narrative Medical decision making narrative: 72-year-old male here with a fishhook to the left thumb Will obtain x-ray, perform digital block and foreign body removal Imaging Data finger x-ray: Attestation: I personally reviewed and interpreted this imaging study as follows: Radiologist's impression: [address] [address] XRay Report Signed Patient: Raul Ruiz MR#: [id number] : 1950 Acct:[id number] Age/Sex: 72 / M ADM Date: 04/07/22 Loc: .ED Attending Dr: Ordering Physician: Sharlene Finn NP Date of Service: 04/07/22 Procedure(s): XR finger LT min 2V Accession Number(s): [id number] cc: Sharlene Finn NP~ EXAMINATION: XR FINGER, LEFT CLINICAL INFORMATION: [place] stuck in left thumb. COMPARISON: None? TECHNIQUE: 3 views of the left thumb. FINDINGS: There is left fish hook stuck in the soft tissues of distal left thumb. No additional radiopaque foreign body seen. There is no fracture. Loss of PIP and DIP joints throughout all digits and first carpometacarpal joint space is seen consistent with arthritis. The soft tissues are grossly unremarkable.? XR/XR finger LT min 2V IMPRESSION: There is left fish hook? stuck in the soft tissues of distal left thumb. No fracture seen Procedures Foreign Body Removal Site: left (thumb) Description of foreign body: fish hook Technique: manual removal, removal with forceps, incision made to facilitate removal and irrigation Confirmed by:: direct visualization and radiograph Complications: none Post-procedure exam: awake, alert Neurovascular: normal distal pulse, normal capillary fill, distal light touch sensation intact, distal motor function normal and no change from pre-procedure Nerve Block Nerve Block 1: Time out performed: Yes Local Anesthetic: lidocaine 1% Amount of anesthesia used (mL): 10 Side: left Nerve Blocks: digital Procedure Successful: Yes Patient Tolerated Procedure: well Complications: none Discharge Plan Discharge Clinical Impression: Foreign body (FB) in soft tissue Patient Disposition: Home, Self-Care Instructions: Soft Tissue Foreign Body (ED) Additional Instructions: Monitor for signs infection such as fever, drainage, odor, redness of the site Prescriptions: New amoxicillin-pot clavulanate 875-125 mg tablet 1 tab PO BID Qty: 14 0RF No Action simvastatin 5 mg tablet 5 mg PO BEDTIME Qty: 90 3RF cyanocobalamin (vitamin B-12) 1,000 mcg capsule 1,000 mcg PO DAILY cholecalciferol (vitamin D3) 25 mcg (1,000 unit) capsule 25 mcg PO DAILY triamcinolone acetonide 0.1 % cream 1 appl topical BID 7 Days Qty: 30 0RF omeprazole 40 mg capsule,delayed release(DR/EC) 40 mg PO BID 90 Days Qty: 180 2RF Referrals: Po,Myles Mccabe MD [Primary Care Provider] - Interventions: ED Discharge Assessment Last Done: 04/07/22 14:13 Discharge Date/Time: 04/07/22 14:13
[2022-04-07] MEDS: Lidocaine HCl 1 % MPF 2 ML VIAL INFILTRATI ×2 (13:41)
== END 2022-04-07 14:13 | disposition home or self-care (01) ==
PROVIDERS: Emergency Provider Emergency Medicine; PCP Internal Medicine
DX: S61.042A Puncture wound with foreign body of left thumb without damage to nail, initial encounter (principal); W45.8XXA Other foreign body or object entering through skin, initial encounter; Y93.19 Activity, other involving water and watercraft; Y92.89 Other specified places as the place of occurrence of the external cause; Y99.9 Unspecified external cause status
CPT/HCPCS: 10120; 64450; 73140; 99282; 99284

== ENCOUNTER 2022-05-09 11:12 | Outpatient (REF) | payer MEDICARE, SELFPAY ==
--- NOTE | ~2022-05-09 | US_ITS ---
EXAMINATION: US RETROPERITONEAL LIMITED (RENAL ONLY) CLINICAL INFORMATION: Calculus of kidney. COMPARISON: Renal ultrasound 07/11/2021. Ultrasound kidneys with bladder 03/04/2020. CT abdomen and pelvis 05/03/2015. TECHNIQUE: Real-time imaging of the kidneys. FINDINGS: RIGHT KIDNEY: 10.7 x 5.8 x 5.6 cm (SAG x AP x TRV). The kidney is normal in size, contour, and echogenicity. Renal cortical thickness is normal. No renal calculi or hydronephrosis. There is an anechoic cyst in the mid pole measuring 1.6 x 1.4 x 1.3 cm. LEFT KIDNEY: 10.3 x 5.0 x 4.2 cm (SAG x AP x TRV). The kidney is normal in size, contour, and echogenicity. Renal cortical thickness is normal. No renal calculi or hydronephrosis. There is an anechoic cyst in the upper pole measuring 6.9 x 7.4 x 6.9 cm. US/US renal BI IMPRESSION: 1. Bilateral renal cysts. 2. There are no echogenic renal calculi or hydronephrosis.
== END 2022-05-09 11:13 | disposition home or self-care (01) ==
LOC: HO.HMGCX 11:12
PROVIDERS: PCP Internal Medicine; Visit Provider Urology
DX: N20.0 Calculus of kidney (principal)
CPT/HCPCS: 76775

== ENCOUNTER 2022-06-15 12:18 | Outpatient (REF) | payer MEDICARE, SELFPAY ==
[2022-06-15 13:08] LABS: Influenza A PCR POSITIVE (Negative); Influenza B PCR NEGATIVE (Negative); Resp Syncy Virus RNA Qual PCR NEGATIVE (Negative); SARS COV2 PCR INHOUSE NEGATIVE (Negative)
== END 2022-06-15 12:19 | disposition home or self-care (01) ==
LOC: HO.LNP 12:18
PROVIDERS: Visit Provider Emergency Medicine
DX: Z20.822 Contact with and (suspected) exposure to COVID-19 (principal); R68.89 Other general symptoms and signs
CPT/HCPCS: 0241U

== ENCOUNTER 2022-06-23 12:23 | Emergency (ER) | payer MEDICARE, SELFPAY ==
--- NOTE | ~2022-06-23 | XR_ITS ---
EXAMINATION: XR chest 2V CLINICAL INFORMATION: Reason for Exam cough, SOB COMPARISON: No prior chest x-ray available in our system for comparison at the time of this dictation. TECHNIQUE: XR chest 2V Lungs and Loly: Both lungs are clear. Pleura: Normal. Costophrenic angles are sharp. No pneumothorax. Heart: The heart is normal in size. Mediastinum: The mediastinum is within normal limits.. Bones: Skeletal structures included are normal for patient's age. XR/XR chest 2V IMPRESSION: No radiographic evidence of acute cardiopulmonary disease.
[2022-06-23 12:37] VITALS: BP 136/94; PULSE 74; RESP 18; TEMP 36.8; O2SAT 98; BMI 26.4
--- NOTE | 2022-06-23 12:39 | ED_ITS ---
HPI - General Adult General Chief complaint: Upper Respiratory Symptoms <JUANJO Sanchez - Last Filed: 06/23/22 12:41> Stated complaint: referred for chest x ray by pcp <JUANJO Sanchez - Last Filed: 06/23/22 12:41> Time Seen by Provider: 06/23/22 14:06 <JUANJO Sanchez - Last Filed: 06/23/22 12:41> Source: patient <JUANJO Sanchez Last Filed: 06/23/22 12:41> Mode of arrival: ambulatory <JUANJO Sanchez - Last Filed: 06/23/22 12:41> Limitations: no limitations <JUANJO Sanchez Last Filed: 06/23/22 12:41> History of Present Illness HPI narrative: 72yoM of asbestos, asthma, GERD, prostate cancer, hyperlipidemia, peptic ulcer disease, herpetic neuralgia, pulmonary nodule vitamin-D deficiency who is presenting to the ER with complaints of 2 weeks of URI complaints which include nasal congestion/rhinorrhea with the productive cough with green/yellow colored sputum worse in the past few days. Reports that he was seen at an urgent care approximately 2 weeks ago and was diagnosed with the flu reports his symptoms has improved although this residual cough is what is bothering him today. Reports that he called his primary care provider and he was sent here for a chest x-ray and further evaluation treatment. He denies any measured fevers, dizziness, headaches, neck pain/stiffness, trouble swallowing or breathing, chest pain or shortness of breath, dyspnea on exertion, orthopnea, palpitations, sore throat, nausea/vomiting/diarrhea constipation, abdominal pain, flank pain, dysuria, hematuria, abnormal penile discharge, rashes, lower extremity edema or calf tenderness, recent travel or sick contacts or any other symptoms complaints or concerns at this time. <JUANJO Oconnell - Last Filed: 06/23/22 14:44> MD complaint: URI complaints <JUANJO Oconnell - Last Filed: 06/23/22 14:44> Onset (ago): week(s) (2) <JUANJO Oconnell - Last Filed: 06/23/22 14:44> Related Data Home medications: Home Medications Medication Instructions Recorded Confirmed cholecalciferol (vitamin D3) 25 25 mcg PO DAILY 04/12/20 03/07/22 mcg (1,000 unit) capsule cyanocobalamin (vitamin B-12) 1,000 mcg PO DAILY 03/29/21 03/07/22 1,000 mcg capsule Previous Rx's Medication Instructions Recorded simvastatin 5 mg tablet 5 mg PO BEDTIME #90 tabs 07/24/21 omeprazole 40 mg capsule,delayed 40 mg PO BID 90 days #180 caps 11/27/21 release triamcinolone acetonide 0.1 % 1 appl topical BID 1 week #30 grams 11/27/21 topical cream amoxicillin 875 mg-potassium 1 tab PO BID #14 tabs 04/07/22 clavulanate 125 mg tablet ciprofloxacin 0.3 %-dexamethasone 4 drp otic (ears) BID 7 days #7.5 06/06/22 0.1 % ear drops,suspension mL (Ciprodex) benzonatate 100 mg capsule 100 mg PO TID PRN cough #14 caps 06/15/22 albuterol sulfate 90 mcg/actuation 1 inh inhalation QID PRN shortness 06/23/22 aerosol inhaler of breath or wheezing #8.5 grams codeine 10 mg-guaifenesin 100 mg/5 5 ml PO Q6H PRN cold symptoms #120 06/23/22 mL oral liquid (Guaifenesin AC) mL doxycycline monohydrate 100 mg 100 mg PO BID 10 days #20 caps 06/23/22 capsule <JUANJO Sanchez - Last Filed: 06/23/22 12:41> Allergies/adverse reactions: Allergies Allergy/AdvReac Type Severity Reaction Status Date / Time SALT AdvReac Unknown Unknown Uncoded 06/15/22 08:24 SIMVASTATIN AdvReac Unknown heart burn Uncoded 06/15/22 08:24 from strong dosage <JUANJO Sanchez - Last Filed: 06/23/22 12:41> Review of Systems Review of Systems: Constitutional : No Weight loss, No Fever, + Chills, No Night Sweats, + Fatigue, + Malaise ENT/Mouth : No Hearing loss, No Ear Pain, + Nasal Congestion, No Sinus Pain, No Hoarseness, No sore throat, + Rhinorrhea, No Swallowing Difficulty Eyes: No Eye Pain, No Swelling, No Redness, No Foreign Body, No Discharge, No Vision Changes Cardiovascular : No Chest Pain, No SOB, No Dyspnea on Exertion, No Orthopnea, No Edema, No Palpitations Respiratory : + Cough, + Sputum, No Wheezing, No Smoke Exposure, No Dyspnea Gastrointestinal : No Nausea, No Vomiting, No Diarrhea, No Constipation, No abdominal Pain, No Hematochezia, No Melena Genitourinary : no irregular bleeding, No Dysuria, No Urinary Frequency, No Hematuria, No Urinary Incontinence, No Urgency, No Flank Pain, No Urinary Flow Changes, No Hesitancy Musculoskeletal : No joint pain, + Myalgias, No Joint Swelling Skin : No Skin Lesions, No rash Neuro : No Weakness, No Numbness, No Paresthesias, No Loss of Consciousness, No Dizziness, No Headache Psych : No Anxiety/Panic, No Depression, No SI/HI/AH/VH, No Social Issues, Heme/Lymph: No Bruising, No Bleeding,No Lymphadenopathy Endocrine : No Polyuria, No Polydipsia, No Temperature Intolerance <JUANJO Oconnell - Last Filed: 06/23/22 14:44> Yes all other systems are reviewed and are negative <JUANJO Oconnell - Last Filed: 06/23/22 14:44> [facility] Past Medical History Attestation statement: The following information was validated with the patient. <JUANJO Oconnell - Last Filed: 06/23/22 14:44> Source: old records reviewed and nursing notes reviewed <JUANJO Oconnell - Last Filed: 06/23/22 14:44> Medical History: Medical History Asbestos exposure Asthma Diastasis recti GERD (gastroesophageal reflux disease) History of prostate cancer Hypercholesterolemia Peptic ulcer disease Post herpetic neuralgia Pulmonary nodule Vitamin D deficiency <JUANJO Sanchez - Last Filed: 06/23/22 12:41> Surgical History: Surgical History History of arthroplasty of left knee History of inguinal hernia repair History of nephrolithiasis History of prostatectomy History of tonsillectomy History of total left knee replacement Hx of colonoscopy <JUANJO Sanchez - Last Filed: 06/23/22 12:41> Family History Family History: Family History Father Colon cancer Mother CVD (cardiovascular disease) Myocardial infarction <JUANJO Sanchez - Last Filed: 06/23/22 12:41> Social History Social History: Social History Housing: House Alcohol intake: never Patient Tobacco Use Status: Never used Tobacco e-Cigarette/Vaping Use: Never Used Second Hand Smoke Exposure: No Advance Directives: Yes Advance Directives Information Provided: Yes Advance Directives on File: No service: No Current occupational status: retired Cognitive needs: No Hearing needs: Yes Vision needs: Yes <JUANJO Sanchez - Last Filed: 06/23/22 12:41> Physical Exam ED Vital Signs: Vital Signs - 24 hr 06/23/22 12:37 Temperature 98.2 F Pulse Rate 74 Respiratory Rate 18 Blood Pressure 136/94 H Pulse Oximetry 98 Oxygen Delivery Method Room Air BMI result Body Mass Index 26.4 <JUANJO Sanchez - Last Filed: 06/23/22 12:41> Vital Signs - 24 hr 06/23/22 12:37 Temperature 98.2 F Pulse Rate 74 Respiratory Rate 18 Blood Pressure 136/94 H Pulse Oximetry 98 Oxygen Delivery Method Room Air BMI result Body Mass Index 26.4 vital signs have been reviewed as normal and appeared to be correct. Blood pressure normal. Heart rate normal. Respiration rate normal. Temperature normal. Oxygen saturation normal. <JUANJO Oconnell - Last Filed: 06/23/22 14:44> Appearance: Alert. Oriented X3. No acute distress. Head: Normal external exam. Normocephalic. Atraumatic. Eyes: PERRLA. EOMI. Conjunctiva and sclera normal. Eyelids normal. ENT: EAC normal. TM's Normal. Pharynx normal. Uvula midline. Moist mucous membranes. No lesions/ulcerations or masses noted on the tongue. Normal voice. No trismus noted. No drooling noted. No muffled voice noted. Neck: Normal inspection. Neck supple. FROM. No adenopathy. Thyroid Normal. No tracheal deviation noted. No crepitus is noted. No meningeal signs. No neck mass noted. No signs of trauma noted. CVS: Normal heart rate and rhythm. Heart sound normal. Pulses normal throughout. No murmurs/rales/gallops. Respiratory: No respiratory distress. Painless inspiration. Breath sounds normal. No wheezes/rales/rhonchi noted. Chest nontender. No crepitus is noted. No signs of trauma noted. No accessory muscle usage noted or decreased air movement noted. No signs of trauma. Abdomen: Soft and nontender. Back: Full range of motion noted. Skin: Skin warm and dry. Normal skin color. Normal skin turgor. No rashes/lesions/lacerations noted. Extremities: No lower extremity edema. No calf tenderness is noted. Extremities exhibit normal range of motion and nontender. Neuro: Oriented X 3. No motor deficit. No sensory deficit. Reflexes normal. Normal steady gait. No focal neuro deficits noted. CN's II-XII intact bilaterally? Vascular: + radial pulses Normal cap refill. No cyanosis noted to upper extremity nails <JUANJO Oconnell - Last Filed: 06/23/22 14:44> Course Course Course Narrative: RME performed by Ashley Mejia PA-C. Patient is a 72 year old male presenting to the emergency department from his PCP's office for a chest XR. Patient states that he has had a cough since just before 06/02/2022 and it doesn't seem to be going away. COVID/Influenza/RSV swab and CXR ordered. Patient placed back in waiting room pending results and room availability. <JUANJO Sanchez - Last Filed: 06/23/22 12:41> Reevaluation(s) Reevaluation #1: 72yoM of asbestos, asthma, GERD, prostate cancer, hyperlipidemia, peptic ulcer disease, herpetic neuralgia, pulmonary nodule vitamin-D deficiency who is presenting to the ER with complaints of 2 weeks of URI complaints which include nasal congestion/rhinorrhea with the productive cough with green/yellow colored sputum worse in the past few days. Reports that he was seen at an urgent care approximately 2 weeks ago and was diagnosed with the flu reports his symptoms has improved although this residual cough is what is bothering him today. Reports that he called his primary care provider and he was sent here for a chest x-ray and further evaluation treatment. Patient negative for COVID/RSV/flu. Chest x-ray negative. Therefore will DC home with antibiotics and symptomatic treatment instructions return if any new or worsening symptoms follow up with primary care provider. Patient understands agrees with this plan. <JUANJO Oconnell Last Filed: 06/23/22 14:44> Time: 14:42 <JUANJO Oconnell - Last Filed: 06/23/22 14:44> Medical Decision Making Lab Data MDM Lab Attestation statement: I reviewed the patient's lab results. <JUANJO Oconnell Last Filed: 06/23/22 14:44> Labs: Lab Results 06/23/22 Range/Units 13:19 Influenza Type A (PCR) NEGATIVE (Negative) Influenza Type B (PCR) NEGATIVE (Negative) RSV RNA Qual (PCR) NEGATIVE (Negative) SARS-CoV-2 RNA (RT-PCR) NEGATIVE (Negative) <JUANJO Sanchez Last Filed: 06/23/22 12:41> Lab Results 06/23/22 Range/Units 13:19 Influenza Type A (PCR) NEGATIVE (Negative) Influenza Type B (PCR) NEGATIVE (Negative) RSV RNA Qual (PCR) NEGATIVE (Negative) SARS-CoV-2 RNA (RT-PCR) NEGATIVE (Negative) <JUANJO Oconnell Last Filed: 06/23/22 14:44> Independent Interpretation I performed an independent interpretation of an: Plain X-Ray <JUANJO Oconnell Last Filed: 06/23/22 14:44> Interpretation: Chest x-ray TECHNIQUE: XR chest 2V Lungs and Loly: Both lungs are clear. Pleura: Normal. Costophrenic angles are sharp. No pneumothorax. Heart: The heart is normal in size. Mediastinum: The mediastinum is within normal limits.. Bones: Skeletal structures included are normal for patient's age. XR/XR chest 2V IMPRESSION: No radiographic evidence of acute cardiopulmonary disease. <JUANJO Oconnell Last Filed: 06/23/22 14:44> Radiology Impression Discussion of test interpretation with radiology: I have reviewed the radiologist's reading. <JUANJO Oconnell Last Filed: 06/23/22 14:44> Prescription Management I considered prescription management with: Antibiotic <JUANJO Oconnell Last Filed: 06/23/22 14:44> Discharge Plan Discharge Clinical Impression: Bronchitis <JUANJO Sanchez Last Filed: 06/23/22 12:41> Patient Disposition: Home, Self-Care <JUANJO Sanchez - Last Filed: 06/23/22 12:41> Instructions: Acute Bronchitis (ED) <JUANJO Sanchez - Last Filed: 06/23/22 12:41> Prescriptions: New doxycycline monohydrate 100 mg capsule 100 mg PO BID 10 Days Qty: 20 0RF codeine-guaifenesin [Guaifenesin AC] 10-100 mg/5 mL liquid 5 ml PO Q6H PRN (Reason: cold symptoms) Qty: 120 0RF albuterol sulfate 90 mcg/actuation HFA aerosol inhaler 1 inh inhalation QID PRN (Reason: shortness of breath or wheezing) Qty: 8.5 0RF No Action simvastatin 5 mg tablet 5 mg PO BEDTIME Qty: 90 3RF amoxicillin-pot clavulanate 875-125 mg tablet 1 tab PO BID Qty: 14 0RF cyanocobalamin (vitamin B-12) 1,000 mcg capsule 1,000 mcg PO DAILY cholecalciferol (vitamin D3) 25 mcg (1,000 unit) capsule 25 mcg PO DAILY ciprofloxacin-dexamethasone [Ciprodex] 0.3-0.1 % drops,suspension 4 drp otic (ears) BID 7 Days Qty: 7.5 0RF triamcinolone acetonide 0.1 % cream 1 appl topical BID 7 Days Qty: 30 0RF omeprazole 40 mg capsule,delayed release(DR/EC) 40 mg PO BID 90 Days Qty: 180 2RF benzonatate 100 mg capsule 100 mg PO TID PRN (Reason: cough) Qty: 14 0RF <JUANJO Sanchez - Last Filed: 06/23/22 12:41> Referrals: Po,Myles Mccabe MD [Primary Care Provider] - 2 days <JUANJO Sanchez - Last Filed: 06/23/22 12:41> Interventions: ED Discharge Assessment Last Done: 06/23/22 14:50 ED Discharge Assessment Last Done: 06/23/22 14:58 <JUANJO Sanchez - Last Filed: 06/23/22 12:41> Discharge Date/Time: 06/23/22 14:50 <JUANJO Sanchez - Last Filed: 06/23/22 12:41>
[2022-06-23 14:19] LABS: Influenza A PCR NEGATIVE (Negative); Influenza B PCR NEGATIVE (Negative); Resp Syncy Virus RNA Qual PCR NEGATIVE (Negative); SARS COV2 PCR INHOUSE NEGATIVE (Negative)
== END 2022-06-23 14:50 | disposition home or self-care (01) ==
PROVIDERS: Physician Assistant Medical; Emergency Provider Emergency Medicine; PCP Internal Medicine
DX: J40 Bronchitis, not specified as acute or chronic (principal); Z20.828 Contact with and (suspected) exposure to other viral communicable diseases; E78.00 Pure hypercholesterolemia, unspecified; J45.909 Unspecified asthma, uncomplicated; C61 Malignant neoplasm of prostate; Z79.02 Long term (current) use of antithrombotics/antiplatelets; Z79.899 Other long term (current) drug therapy; Z20.822 Contact with and (suspected) exposure to COVID-19
CPT/HCPCS: 0241U; 71046; 99283

== ENCOUNTER 2022-07-27 14:14 | Outpatient (REF) | payer MEDICARE, SELFPAY ==
[2022-07-27 15:46] LABS: Prostate Specific Antigen < 0.10 ng/mL (<0.05-4.0)
== END 2022-07-27 14:15 | disposition home or self-care (01) ==
LOC: HO.LAB 14:14
PROVIDERS: PCP Internal Medicine; Visit Provider Urology
DX: N40.1 Benign prostatic hyperplasia with lower urinary tract symptoms (principal); N13.8 Other obstructive and reflux uropathy; C61 Malignant neoplasm of prostate
CPT/HCPCS: 36415; 84153

== ENCOUNTER → 2022-07-31 08:32 | Outpatient (BNVA) | payer MEDICARE, SELFPAY | PROVIDERS: PCP Internal Medicine; Visit Provider Urology | DX: C61 Malignant neoplasm of prostate (principal); N28.1 Cyst of kidney, acquired; N39.3 Stress incontinence (female) (male) | CPT/HCPCS: 51798; 99212 ==

== ENCOUNTER 2022-12-16 19:08 | Emergency (ER) | payer MEDICARE, SELFPAY ==
--- NOTE | ~2022-12-16 | CT_ITS ---
EXAMINATION: CT HEAD WITHOUT CONTRAST CLINICAL INFORMATION: Scalp laceration COMPARISON: 03/04/2018 TECHNIQUE: Contiguous axial imaging was performed from the skull base to vertex without intravenous administration of contrast. This CT examination was performed using dose optimization techniques as appropriate, variously including the following: *Automated exposure control *Adjustment of mA and/or kV according to patient size (this includes techniques or standardized protocols for targeted exams where dose is matched to indication/reason for exam; i.e. extremities or head) *Use of iterative reconstruction technique DLP: 617 mGy-cm FINDINGS: No midline shift. No mass effect. No hemorrhage. The basal cisterns appear patent. The posterior fossa is grossly within normal limits. No extra-axial collection. Scattered areas of white matter ischemic change. Review of the bone windows does not demonstrate fracture. Hematoma seen posterior on left calcaneus. Atrophy is noted. CT/CT head/brain wo IV con IMPRESSION: Negative acute noncontrast CT of the brain. Note is made of White matter ischemic changes and atrophy
[2022-12-16 19:41] VITALS: BP 139/79; PULSE 75; RESP 18; TEMP 36.3; O2SAT 95; BMI 28.9
--- NOTE | 2022-12-16 19:41 | ED_ITS ---
HPI - Fall General Chief Complaint: Fall Stated Complaint: Fall/ Head wound Time Seen by Provider: 12/16/22 21:41 Source: patient Mode of arrival: ambulatory Limitations: no limitations History of Present Illness HPI Narrative: Patient apparently was fishing earlier today while getting off the boat lost balance and fell backwards hitting his upper back 1st and then hitting his head to the pavement as superficial laceration top of the head no loss of consciousness patient has been behaving normal drove all the way from [place] to his home no other injuries patient not on any anticoagulants Related Data Home Medications Medication Instructions Recorded Confirmed cholecalciferol (vitamin D3) 25 25 mcg PO DAILY 04/12/20 08/23/22 mcg (1,000 unit) capsule Previous Rx's Medication Instructions Recorded albuterol sulfate 90 mcg/actuation 1 inh inhalation QID PRN shortness 06/23/22 aerosol inhaler of breath or wheezing #8.5 grams codeine 10 mg-guaifenesin 100 mg/5 5 ml PO Q6H PRN cold symptoms #118 08/23/22 mL oral liquid (Guaifenesin AC) mL omeprazole 40 mg capsule,delayed 40 mg PO DAILY #90 caps 11/12/22 release Allergies Allergy/AdvReac Type Severity Reaction Status Date / Time SALT AdvReac Unknown Unknown Uncoded 08/23/22 09:02 SIMVASTATIN AdvReac Unknown heart burn Uncoded 08/23/22 09:02 from strong dosage Review of Systems Review of Systems: Yes all other systems are reviewed and are negative PMFSH Past Medical History Medical History Asbestos exposure Asthma Diastasis recti GERD (gastroesophageal reflux disease) History of prostate cancer Hypercholesterolemia Peptic ulcer disease Post herpetic neuralgia Pulmonary nodule Vitamin D deficiency Surgical History History of arthroplasty of left knee History of inguinal hernia repair History of nephrolithiasis History of prostatectomy History of tonsillectomy History of total left knee replacement Hx of colonoscopy Family History Family History Father Colon cancer Mother CVD (cardiovascular disease) Myocardial infarction Social History Social History Housing: House Alcohol intake: never Patient Tobacco Use Status: Never used Tobacco e-Cigarette/Vaping Use: Never Used Second Hand Smoke Exposure: No Advance Directives: No Advance Directives Information Provided: No service: No Current occupational status: retired Cognitive needs: No Hearing needs: Yes Vision needs: Yes Physical Exam Vital Signs: Vital Signs: Last Vital Signs Temp 97.3 F 12/16/22 19:41 Pulse 75 12/16/22 19:41 Resp 18 12/16/22 19:41 BP 139/79 12/16/22 19:41 Pulse Ox 95 12/16/22 19:41 O2 Del Method Room Air 12/16/22 19:41 BMI result Body Mass Index 28.9 Appearance: Alert. Oriented X3. No acute distress. Eyes: PERRLA, No Nystagmus ENT: Pharynx normal. Oral Mucosa moist superficial laceration top of the head Neck: Normal inspection. Neck supple. No midline tenderness CVS: Normal heart rate and rhythm. Pulses normal. Respiratory: No respiratory distress. Equal air entry bilateral, no wheezing/rales/rhonchi Abdomen: Soft and nontender. Bowel sounds are present, Skin: Skin warm and dry. Normal skin color. Normal skin turgor. Extremities: No lower extremity edema. No calf tenderness Neuro: Oriented X 3. No motor deficit. No sensory deficit.No cerebellar signs , cranial nerves II-XII intact Course Course Course Narrative: This is an RME: Additional HPI, ROS, PE not included below will be deferred to primary provider. Reports a fall at 11:00, mechanical fall from boat onto the pavement, missed the ladder when stepping [place] the back of [place] the dock, sustained a laceration that was cleansed at home, topical antibiotic applied, no active bleeding. Denies LOC. Reporting pain only upon palpation. Patient is not on any anticoagulants. Reports last tetanus vaccination less than 5 years ago. No focal neurological deficits Plan: Given age and mechanism of injury will obtain CT head Procedures Laceration Laceration 1: Site: scalp Side (If applicable): right Size (cm): 1 Description: stellate Skin layer closed with: other (Reyna) Number of sutures: 3 Discharge Plan Discharge Clinical Impression: Minor head injury without loss of consciousness, Laceration of scalp Patient Disposition: Home, Self-Care Instructions: Laceration (ED), Head Injury (ED) Additional Instructions: Local care as advised Staple removal in 7-10 days Prescriptions: No Action omeprazole 40 mg capsule,delayed release(DR/EC) 40 mg PO DAILY Qty: 90 0RF albuterol sulfate 90 mcg/actuation HFA aerosol inhaler 1 inh inhalation QID PRN (Reason: shortness of breath or wheezing) Qty: 8.5 0RF cholecalciferol (vitamin D3) 25 mcg (1,000 unit) capsule 25 mcg PO DAILY codeine-guaifenesin [Guaifenesin AC] 10-100 mg/5 mL liquid 5 ml PO Q6H PRN (Reason: cold symptoms) Qty: 118 0RF Interventions: ED Discharge Assessment Last Done: 12/16/22 22:20 Discharge Date/Time: 12/16/22 22:20
--- NOTE | 2022-12-16 21:42 | PC.NURSE ---
Pt ambulatory to restroom with steady gait.
== END 2022-12-16 22:20 | disposition home or self-care (01) ==
LOC: HO.ED 22:12
PROVIDERS: Emergency Provider Internal Medicine; PCP Internal Medicine
DX: S01.01XA Laceration without foreign body of scalp, initial encounter (principal); S09.90XA Unspecified injury of head, initial encounter; R51.9 Headache, unspecified; M54.50 Low back pain, unspecified; W01.10XA Fall on same level from slipping, tripping and stumbling with subsequent striking against unspecified object, initial encounter; Y93.9 Activity, unspecified; Y92.9 Unspecified place or not applicable; Y99.9 Unspecified external cause status; Z79.899 Other long term (current) drug therapy
CPT/HCPCS: 12001; 70450; 99284

== ENCOUNTER 2022-12-18 07:00 | Outpatient (REF) | payer MEDICARE, SELFPAY ==
[2022-12-18 07:10] LABS: MANUAL DIFF FLAG NO
[2022-12-18 07:25] LABS: Basophils Absolute Auto 0.1 X10*3/uL (0.0-0.2); Basophils Percent Auto 1.1 % (0-2); Eosinophils Absolute Auto 0.3 X10*3/uL (0.0-0.4); Eosinophils Percent Auto 5.1 % (0-4); Imm Gran Abs Auto 0.01 X10*3/uL (0.00-0.03); Imm Gran Pct Auto 0.2 % (0.0-0.4); Lymphocytes Absolute Auto 2.3 X10*3/uL (1.2-4.9); Lymphocytes Percent Auto 42.1 % (20-40); Mean Corpuscular HGB Conc 34.1 g/dl (31.0-36.0); Mean Corpuscular Hemoglobin 30.8 pg (27.0-33.0); Mean Corpuscular Volume 90.3 fL (80.0-98.0); Mean Platelet Volume 10.6 fL (9.4-12.4); Monocytes Absolute Auto 0.6 X10*3/uL (0.1-1.2); Monocytes Percent Auto 10.3 % (2-11); Neutrophils Absolute Auto 2.3 x10*3/uL (2.0-8.3); Neutrophils Percent Auto 41.2 % (45-73); Platelet Count 177 X10*3/uL (160-400); Red Blood Count 4.54 X10*6/uL (4.60-5.80); White Blood Count 5.5 X10*3/uL (4.8-10.8)
[2022-12-18 08:08] LABS: Alanine Aminotransferase 13 U/L (0-40); Albumin Level 3.7 g/dL (3.5-5.0); Alkaline Phosphatase 68 U/L (39-117); Anion Gap 11 (12-20); Aspartate Amino Transferase 19 U/L (5-37); Blood Urea Nitrogen 17 mg/dL (9-16); Carbon Dioxide 25 mmol/L (22-29); Chloride 110 mmol/L (96-108); Cholesterol 195 mg/dL; Estimated Glomerular Filt Rate > 60; Glucose Random 94 mg/dL (60-115); HDL Cholesterol 36 mg/dL; LDL Cholesterol Calculated 145 mg/dl; Potassium 4.3 mmol/L (3.3-5.1); Sodium 142 mmol/L (135-145); Total Protein 6.7 g/dL (6.5-8.0); Triglycerides 74 mg/dL
[2022-12-18 08:23] LABS: Free T4 (Free Thyroxine) 0.89 ng/dL (0.71-1.85); Thyroid Stimulating Hormone 4.45 uIU/mL (0.32-4.0)
[2022-12-18 08:24] LABS: PSA,Total (Free>4and<10) < 0.10 ng/mL (0.00-4.00)
[2022-12-18 08:30] LABS: Vitamin B12 599 pg/mL (200-900)
== END 2022-12-18 07:01 | disposition home or self-care (01) ==
LOC: HO.LAB 07:00
PROVIDERS: PCP Internal Medicine; Visit Provider Internal Medicine
DX: Z12.5 Encounter for screening for malignant neoplasm of prostate (principal); C61 Malignant neoplasm of prostate; E53.8 Deficiency of other specified B group vitamins; E78.00 Pure hypercholesterolemia, unspecified
CPT/HCPCS: 36415; 80053; 80061; 82607; 82746; 84153; 84439; 84443; 85025

== ENCOUNTER 2023-01-03 10:47 | Outpatient (AMB) | payer MEDICARE, SELFPAY ==
[2023-01-03 10:50] VITALS: BP 138/72; PULSE 78; O2SAT 98; BMI 26.0
--- NOTE | 2023-01-03 10:50 | A.OFFPC_ITS ---
Vital Signs 01/03/23 10:50 Height 5 ft 8 in Weight 171 lb BMI 26.0 BP 138/72 Blood Pressure Location Lt brachial Position Sitting Pulse 78 Pulse Source Pulse Oximeter Pulse Oximetry (%) 98 Oxygen Delivery Method Room Air Intake Visit Reasons: 3 month follow up cholesterol, gerd Allergies SALT Adverse Reaction (Unknown, Uncoded 01/03/23 10:51) Unknown SIMVASTATIN Adverse Reaction (Unknown, Uncoded 01/03/23 10:51) heart burn from strong dosage Tobacco use date assessed: 01/03/23 Fall risk assessment: No Falls in past year Last assessed Fall Risk: 01/03/23 Dental Screening Dental Screen Date: 01/03/23 Did you have a dental visit in the last 12 months?: Yes Did you have a dental problem in the last 6 months where you did not have access to dental care?: No Was dental information given to patient?: Patient has dentist HPI 3 month follow up cholesterol, gerd HPI Details 72-year-old male with prostate cancer hypercholesterolemia GERD asthma left knee pain coming in for follow-up last seen in August 2022 blood work done ER visit in December 20 after fall from a boat lost balance and sustained laceration on the scalp. Patient also so the Orthopedics in October 2022 for the low back pain grade 1 spondylolisthesis L3-4 and spondylosis L4-S1 MRI ordered for the lumbar spine and to consider injections- MRI done already- ? prostate cancer- ordered PET scan- done [facility] awaiting results and patient is teary in the office concern about the history of prostate cancer in 2007 prostate number has been less than 0.1 on the blood work. Discussed about anxiety and to give him some medication to help coming down. Patient is in a lot of stress as the is going to undergo breast cancer surgery. FORMERLY [facility], [facility] Medical History Asbestos exposure Asthma Diastasis recti GERD (gastroesophageal reflux disease) History of prostate cancer Hypercholesterolemia Peptic ulcer disease Post herpetic neuralgia Pulmonary nodule Vitamin D deficiency Surgical History History of arthroplasty of left knee History of inguinal hernia repair History of nephrolithiasis History of prostatectomy History of tonsillectomy History of total left knee replacement Hx of colonoscopy Family History (Updated 01/03/23 @ 10:51 by Odette Lozano CMA) Father Colon cancer Mother CVD (cardiovascular disease) Myocardial infarction Social History Housing: House Alcohol intake: never Patient Tobacco Use Status: Never used Tobacco e-Cigarette/Vaping Use: Never Used Second Hand Smoke Exposure: No service: No Current occupational status: retired Cognitive needs: No Hearing needs: Yes Vision needs: Yes Questionnaire PHQ-9 Over the last 2 weeks, how often have you been bothered by any of the following problems? 1. Little interest or pleasure in doing things: not at all 2. Feeling down, depressed, or hopeless: not at all 3. Trouble falling or staying asleep, or sleeping too much: not at all 4. Feeling tired or having little energy: not at all (every 3-4 days) 5. Poor appetite or overeating: not at all 6. Feeling bad about yourself - or that you are a failure or have let yourself or your family down: not at all 7. Trouble concentrating on things, such as reading the newspaper or watching television: not at all 8. Moving or speaking so slowly that other people could have noticed. Or the opposite - being so fidgety or restless that you have been moving around a lot more than usual: not at all 9. Thoughts that you would be better off or of hurting yourself in some way: not at all Total score: 0 Depression Screening Interpretation: Negative Source: Developed by Drs. Musa Edwards, Nicolás Hernandez and colleagues, with an educational denise from [employer]. Thrive Questionnaire Date Thrive assessed: 08/23/22 AUDIT C Alcohol Use Questionnaire (AUDIT-C) 1. How often do you have a drink containing alcohol?: Never 3. How often do you have six or more drinks on one occasion?: Never Total Score: 0 DEVON-7 AMB Questionnaire DEVON-7 Date DEVON - 7 assessed: 08/23/22 Source: Developed by Drs. Musa Edwards, Nicolás Hernandez and colleagues, with an educational denise from [employer]. Physical exam (Primary Care) Vital Signs: Last Vital Signs Pulse 78 01/03/23 10:50 BP 138/72 01/03/23 10:50 Pulse Ox 98 01/03/23 10:50 Oxygen Delivery Method Room Air 01/03/23 10:50 BMI result Body Mass Index 26.0 Tobacco/Smoking Status: Tobacco use Status Tobacco use date assessed 01/03/23 01/03/23 10:52 Patient Tobacco Use Status Never used Tobacco 01/03/23 10:52 e-Cigarette/Vaping Use Never Used 01/03/23 10:52 PHQ-9: PHQ-9 Score PHQ-9: Total score 0 01/03/23 11:18 Depression Screening Interpretation: Negative Thrive Assessment: Date of Thrive Assessment Date Thrive assessed 08/23/22 01/03/23 10:52 Const General: alert; No acute distress Eyes Conjunctivae: conjunctivae normal Resp Auscultation: clear to auscultation bilaterally Cardio Rate: regular rate Rhythm: regular rhythm GI Inspection: Yes normal to inspection Extrem General: Yes normal to inspection and No edema Assessment and Plan Assessment & Plan (1) Low back pain: Code(s): M54.5 - Low back pain Plan: Patient is follow-up with [facility] MRI requested and possible injections. concern on prostate cancer - PET scan pending (2) GERD (gastroesophageal reflux disease): Code(s): K21.9 - Gastro-esophageal reflux disease without esophagitis Qualifiers: Esophagitis presence: without esophagitis Qualified Code(s): K21.9 - Gastro-esophageal reflux disease without esophagitis Plan: Avoid the foods that causes that usually spicy foods, tomato products, juices, coffee, soda and foods that your sensitive to. After eating do not lie down, allow 3-4 hours before in lie down. And keep the head of bed above 30 degrees to avoid the acid from going up. (3) Hypercholesterolemia: Code(s): E78.00 - Pure hypercholesterolemia, unspecified Plan: Avoid fried foods, chicken skin, eggs, butter margarine, pastries and meat. Be it pork or beef they have a lot of cholesterol LDL goal of less than 130 and triglyceride of less than 150 (4) Asthma: Code(s): J45.909 - Unspecified asthma, uncomplicated Plan: Continue with inhaler as needed (5) TSH elevation: Code(s): R79.89 - Other specified abnormal findings of blood chemistry (6) Prostate cancer: Comment: October 2007 prostatectomy Code(s): C61 - Malignant neoplasm of prostate Plan: PSa is low (7) Generalized anxiety disorder: Code(s): F41.1 - Generalized anxiety disorder Orders: Orders Comprehensive Met. Panel 3 Months E78.00 - Pure hypercholesterolemia, unspecified Lipid Panel 3 Months E78.00 - Pure hypercholesterolemia, unspecified Medications: New alprazolam 0.25 mg PO DAILY PRN 14 tabs 0RF anxiety F41.1 - Generalized anxiety disorder Coding Level of Care Code Est Pt Level 4 (31621) Diagnoses Low back pain M54.5 GERD (gastroesophageal reflux disease) K21.9 Esophagitis presence: without esophagitis Hypercholesterolemia E78.00 Asthma J45.909 TSH elevation R79.89 Prostate cancer C61 Generalized anxiety disorder F41.1
== END 2023-01-03 12:12 | disposition home or self-care (01) ==
PROVIDERS: PCP Internal Medicine; Visit Provider Internal Medicine
DX: K21.9 Gastro-esophageal reflux disease without esophagitis (principal); E78.00 Pure hypercholesterolemia, unspecified; J45.909 Unspecified asthma, uncomplicated; C61 Malignant neoplasm of prostate; M54.50 Low back pain, unspecified; R79.89 Other specified abnormal findings of blood chemistry; F41.1 Generalized anxiety disorder
CPT/HCPCS: 99214

== ENCOUNTER 2023-04-17 06:31 | Outpatient (REF) | payer MEDICARE, SELFPAY ==
[2023-04-17 07:50] LABS: Alanine Aminotransferase 17 U/L (0-40); Alkaline Phosphatase 63 U/L (39-117); Anion Gap 10 (12-20); Aspartate Amino Transferase 19 U/L (5-37); Bilirubin Total 0.8 mg/dL (0.0-1.0); Blood Urea Nitrogen 16 mg/dL (9-16); Calcium 9.5 mg/dL (8.4-10.2); Carbon Dioxide 25 mmol/L (22-29); Chloride 110 mmol/L (96-108); Cholesterol 208 mg/dL (<200); Estimated Glomerular Filt Rate > 60; Glucose Random 91 mg/dL (60-115); HDL Cholesterol 37 mg/dL (>40); LDL Cholesterol Calculated 154 mg/dL (<100); Potassium 4.4 mmol/L (3.3-5.1); Sodium 141 mmol/L (135-145); Total Protein 6.9 g/dL (6.5-8.0); Triglycerides 87 mg/dL (<150)
[2023-04-17 08:09] LABS: Free T4 (Free Thyroxine) 0.83 ng/dL (0.71-1.85); Thyroid Stimulating Hormone 2.16 uIU/mL (0.32-4.0)
== END 2023-04-17 06:32 | disposition home or self-care (01) ==
LOC: HO.LAB 06:31
PROVIDERS: PCP Internal Medicine; Visit Provider Internal Medicine
DX: E78.00 Pure hypercholesterolemia, unspecified (principal); R94.6 Abnormal results of thyroid function studies
CPT/HCPCS: 36415; 80053; 80061; 84439; 84443

== ENCOUNTER 2023-04-23 10:36 | Outpatient (AMB) | payer MEDICARE, SELFPAY ==
[2023-04-23 10:39] VITALS: BP 144/82; PULSE 61; O2SAT 98; BMI 26.8
--- NOTE | 2023-04-23 10:39 | MHC.PC.OV ---
Vital Signs 04/23/23 10:39 Height 5 ft 8 in Weight 176 lb BMI 26.8 BP 144/82 H Blood Pressure Location Lt brachial Position Sitting Pulse 61 Pulse Source Pulse Oximeter Pulse Oximetry (%) 98 Oxygen Delivery Method Room Air Intake Visit Reasons: cholesterol LBP, Allergies SALT Adverse Reaction (Unknown, Uncoded 04/23/23 10:40) Unknown SIMVASTATIN Adverse Reaction (Unknown, Uncoded 04/23/23 10:40) heart burn from strong dosage Medication List - Last Reconciled 04/23/23 by Myles Eduardo MD albuterol sulfate 90 mcg/actuation 1 inh inhalation QID PRN alprazolam 0.25 mg PO DAILY PRN celecoxib (Celebrex) 200 mg PO DAILY omeprazole 40 mg PO DAILY simvastatin 5 mg PO BEDTIME Tobacco use date assessed: 01/03/23 Fall risk assessment: No Falls in past year Last assessed Fall Risk: 04/23/23 Dental Screening Dental Screen Date: 04/23/23 Did you have a dental visit in the last 12 months?: Yes Did you have a dental problem in the last 6 months where you did not have access to dental care?: No Was dental information given to patient?: Patient has dentist HPI cholesterol LBP, HPI Details 73-year-old overweight male with hypercholesterolemia history of prostate cancer asthma GERD last seen December 2022. Patient was complaining of low back pain and has follow-up with [facility]. Patient had PET scan done due to the sacral bone lesion noted showing increased metabolic activity in the shoulder CMC joints phalanx hips knees and spine most consistent with degenerative changes T. no increased tracer uptake.. Patient did have an MRI done which showed a nonspecific 1.1 cm lesion in the S2 vertebra noted also multi degenerative changes L4-L5 most pronounced mild to moderate canal stenosis and question of potential compression of the descending right L5 nerve root in the subarticular recess.. Patient did have some blood work also. L knee problem- seen ortho and was given celebrex- sees PSS planned injection. cough for 3 weeks , [facility] Medical History Asbestos exposure Asthma Diastasis recti GERD (gastroesophageal reflux disease) History of prostate cancer Hypercholesterolemia Peptic ulcer disease Post herpetic neuralgia Pulmonary nodule Vitamin D deficiency Surgical History History of arthroplasty of left knee History of inguinal hernia repair History of nephrolithiasis History of prostatectomy History of tonsillectomy History of total left knee replacement Hx of colonoscopy Family History (Updated 01/03/23 @ 10:51 by Odette Lozano [facility]) Father Colon cancer Mother CVD (cardiovascular disease) Myocardial infarction Social History Housing: House Alcohol intake: never Patient Tobacco Use Status: Never used Tobacco e-Cigarette/Vaping Use: Never Used Second Hand Smoke Exposure: No service: No Current occupational status: retired Cognitive needs: No Hearing needs: Yes Vision needs: Yes Questionnaire PHQ-9 Over the last 2 weeks, how often have you been bothered by any of the following problems? 1. Little interest or pleasure in doing things: not at all 2. Feeling down, depressed, or hopeless: not at all 3. Trouble falling or staying asleep, or sleeping too much: not at all 4. Feeling tired or having little energy: not at all (every 3-4 days) 5. Poor appetite or overeating: not at all 6. Feeling bad about yourself - or that you are a failure or have let yourself or your family down: not at all 7. Trouble concentrating on things, such as reading the newspaper or watching television: not at all 8. Moving or speaking so slowly that other people could have noticed. Or the opposite - being so fidgety or restless that you have been moving around a lot more than usual: not at all 9. Thoughts that you would be better off or of hurting yourself in some way: not at all Total score: 0 Depression Screening Interpretation: Negative Depression Screening Done: Yes Source: Developed by Drs. Musa Edwards, Hailey Montoya, Nicolás Rodas and colleagues, with an educational denise from [employer]. Thrive Questionnaire Date Thrive assessed: 08/23/22 AUDIT C Alcohol Use Questionnaire (AUDIT-C) 1. How often do you have a drink containing alcohol?: Never 3. How often do you have six or more drinks on one occasion?: Never Total Score: 0 DEVON-7 AMB Questionnaire DEVON-7 Date DEVON - 7 assessed: 08/23/22 Source: Developed by Drs. Musa Edwards, Hailey Montoya, Nicolás Rodas and colleagues, with an educational denise from [employer]. Physical exam (Primary Care) Vital Signs: Last Vital Signs Pulse 61 04/23/23 10:39 BP 144/82 H 04/23/23 10:39 Pulse Ox 98 04/23/23 10:39 Oxygen Delivery Method Room Air 04/23/23 10:39 BMI result Body Mass Index 26.8 Tobacco/Smoking Status: Tobacco use Status Tobacco use date assessed 01/03/23 04/23/23 10:42 Patient Tobacco Use Status Never used Tobacco 04/23/23 10:42 e-Cigarette/Vaping Use Never Used 04/23/23 10:42 PHQ-9: PHQ-9 Score PHQ-9: Total score 0 04/23/23 10:42 Depression Screening Interpretation: Negative Thrive Assessment: Date of Thrive Assessment Date Thrive assessed 08/23/22 04/23/23 10:42 Const General: alert; No acute distress Eyes Conjunctivae: conjunctivae normal Resp Auscultation: clear to auscultation bilaterally Cardio Rate: regular rate Rhythm: regular rhythm GI Inspection: Yes normal to inspection Extrem General: Yes normal to inspection and No edema Assessment and Plan Assessment & Plan (1) Prostate cancer: Comment: October 2007 prostatectomy Code(s): C61 - Malignant neoplasm of prostate Plan: Continue to follow-up with Urology (2) GERD (gastroesophageal reflux disease): Code(s): K21.9 - Gastro-esophageal reflux disease without esophagitis Qualifiers: Esophagitis presence: without esophagitis Qualified Code(s): K21.9 - Gastro-esophageal reflux disease without esophagitis Plan: Avoid the foods that causes that usually spicy foods, tomato products, juices, coffee, soda and foods that your sensitive to. After eating do not lie down, allow 3-4 hours before in lie down. And keep the head of bed above 30 degrees to avoid the acid from going up. On omeprazole 40 mg once a day (3) Hypercholesterolemia: Code(s): E78.00 - Pure hypercholesterolemia, unspecified Plan: Avoid fried foods, chicken skin, eggs, butter margarine, pastries and meat. Be it pork or beef they have a lot of cholesterol LDL goal of less than 130 and triglyceride of less than 150 (4) Lumbar degenerative disc disease: Comment: MRI 2022 Code(s): M51.36 - Other intervertebral disc degeneration, lumbar region Plan: Keep active Orders: Orders Lipid Panel 3 Months E78.00 - Pure hypercholesterolemia, unspecified Comprehensive Met. Panel 3 Months E78.00 - Pure hypercholesterolemia, unspecified Medications: New simvastatin 5 mg PO BEDTIME 30 tabs 3RF E78.00 - Pure hypercholesterolemia, unspecified Refilled triamcinolone acetonide 0.1% 1 appl topical BID 30 grams 0RF 1 week L30.9 - Dermatitis, unspecified Coding Level of Care Code Est Pt Level 4 (02936) Diagnoses Prostate cancer C61 Gastroesophageal reflux disease without esophagitis K21.9 Esophagitis presence: without esophagitis Hypercholesterolemia E78.00 Lumbar degenerative disc disease M51.36
== END 2023-04-23 11:32 | disposition home or self-care (01) ==
PROVIDERS: PCP Internal Medicine; Visit Provider Internal Medicine
DX: C61 Malignant neoplasm of prostate (principal); K21.9 Gastro-esophageal reflux disease without esophagitis; E78.00 Pure hypercholesterolemia, unspecified; M51.36 Other intervertebral disc degeneration, lumbar region
CPT/HCPCS: 99214

== ENCOUNTER 2023-07-23 06:34 | Outpatient (REF) | payer MEDICARE, SELFPAY ==
[2023-07-23 07:52] LABS: Alanine Aminotransferase 17 U/L (0-40); Alkaline Phosphatase 65 U/L (39-117); Anion Gap 8 (12-20); Aspartate Amino Transferase 19 U/L (5-37); Bilirubin Total 0.8 mg/dL (0.0-1.0); Blood Urea Nitrogen 19 mg/dL (9-16); Calcium 9.1 mg/dL (8.4-10.2); Carbon Dioxide 27 mmol/L (22-29); Chloride 110 mmol/L (96-108); Cholesterol 237 mg/dL (<200); Estimated Glomerular Filt Rate > 60; Glucose Random 90 mg/dL (60-115); HDL Cholesterol 37 mg/dL (>40); LDL Cholesterol Calculated 180 mg/dL (<100); Potassium 4.1 mmol/L (3.3-5.1); Sodium 141 mmol/L (135-145); Triglycerides 103 mg/dL (<150)
[2023-07-23 08:10] LABS: Prostate Specific Antigen < 0.10 ng/mL (<0.05-4.0)
== END 2023-07-23 06:35 | disposition home or self-care (01) ==
LOC: HO.LAB 06:34
PROVIDERS: Absent Provider Urology; PCP Internal Medicine; Visit Provider Internal Medicine
DX: C61 Malignant neoplasm of prostate (principal); E78.00 Pure hypercholesterolemia, unspecified; Z12.5 Encounter for screening for malignant neoplasm of prostate
CPT/HCPCS: 36415; 80053; 80061; 84153

== ENCOUNTER 2023-08-02 09:22 | Outpatient (AMB) | payer MEDICARE, SELFPAY ==
[2023-08-02 09:24] VITALS: BP 144/86; PULSE 67; O2SAT 98; BMI 27.8
--- NOTE | 2023-08-02 09:24 | MHC.PC.OV ---
Vital Signs 08/02/23 09:24 Height 5 ft 8 in Weight 183 lb BMI 27.8 BP 144/86 H Blood Pressure Location Lt brachial Position Sitting Pulse 67 Pulse Source Pulse Oximeter Pulse Oximetry (%) 98 Oxygen Delivery Method Room Air Intake Visit Reasons: cholesterol Intake Note: The patient is here for a follow-up regarding cholesterol levels. Today, the patient's primary concern is experiencing difficulty obtaining a complete, deep breath over the past 3-4 days. Puller Over Required: No Accompanied by: Spouse Allergies SALT Adverse Reaction (Unknown, Uncoded 08/02/23 09:27) Unknown SIMVASTATIN Adverse Reaction (Unknown, Uncoded 08/02/23 09:27) heart burn from strong dosage Medication List - Last Reconciled 08/02/23 by Myles Eduardo MD albuterol sulfate 90 mcg/actuation 1 inh inhalation QID PRN alprazolam 0.25 mg PO DAILY PRN celecoxib (Celebrex) 200 mg PO DAILY omeprazole 40 mg PO DAILY triamcinolone acetonide 0.1% 1 appl topical BID 1 week Tobacco use date assessed: 08/02/23 HPI cholesterol HPI Details 73-year-old overweight male with a history of prostate cancer GERD hypercholesterolemia lumbar degenerative disc disease last seen in March 2023. Patient's colonoscopy up-to-date February 2022 5 years review of the notes has seen Orthopedics 04/15/2023 status post left total knee arthroplasty but continues to complain of lateral based knee pain diagnosed with IT band tendonitis and was prescribed hinged knee brace. Patient was advised physical therapy stretching and ultrasound modalities prescribe Celebrex advised hinged knee brace. Had a long discussion with the patient with concerns about cholesterol as the patient can not take simvastatin. Discussed lengthily about diet discussed lengthily about exercise discussed lengthily about familial problems. Noted also blood pressure to be elevated and increasing weight. [facility] Medical History (Updated 08/02/23 @ 10:02 by Myles Eduardo MD) TSH elevation COVID-19 virus infection Peripheral vascular disease Impacted cerumen of both ears Chronic cough Numbness of toes Left leg swelling Stress incontinence Medicare annual wellness visit, initial Low back pain Travel advice encounter Knee pain, left Fall Tick bite Right knee pain Right shoulder pain Left cataract Hip pain, left Dysphagia Urinary tract infection Peptic ulcer disease Vitamin D deficiency Pulmonary nodule Post herpetic neuralgia Asbestos exposure Diastasis recti History of prostate cancer Asthma GERD (gastroesophageal reflux disease) Hypercholesterolemia Surgical History History of total left knee replacement Hx of colonoscopy History of arthroplasty of left knee History of nephrolithiasis History of tonsillectomy History of inguinal hernia repair History of prostatectomy Family History (Updated 01/03/23 @ 10:51 by Odette Lozano [facility]) Father Colon cancer Mother CVD (cardiovascular disease) Myocardial infarction Social History Housing: House Alcohol intake: never Patient Tobacco Use Status: Never used Tobacco e-Cigarette/Vaping Use: Never Used Second Hand Smoke Exposure: No service: No Current occupational status: retired Cognitive needs: No Hearing needs: Yes Vision needs: Yes Questionnaire PHQ-9 Over the last 2 weeks, how often have you been bothered by any of the following problems? 1. Little interest or pleasure in doing things: not at all 2. Feeling down, depressed, or hopeless: not at all 3. Trouble falling or staying asleep, or sleeping too much: not at all 4. Feeling tired or having little energy: not at all 5. Poor appetite or overeating: not at all 6. Feeling bad about yourself - or that you are a failure or have let yourself or your family down: not at all 7. Trouble concentrating on things, such as reading the newspaper or watching television: not at all 8. Moving or speaking so slowly that other people could have noticed. Or the opposite - being so fidgety or restless that you have been moving around a lot more than usual: not at all 9. Thoughts that you would be better off or of hurting yourself in some way: not at all Total score: 0 Depression Screening Interpretation: Negative Depression Screening Done: Yes 87806 - PHQ-9 Billing: Yes Source: Developed by Drs. Musa Edwards, Hailey Montoya, Nicolás Rodas and colleagues, with an educational denise from [employer]. Thrive Questionnaire Date Thrive assessed: 08/02/23 I am a: Patient What is your living situation today?: I have a steady place to live Within the past 12 months, did the food you bought not last and you didn't have the money to get more?: Never true Within the past 12 months, did you worry whether your food would run out before you got money to buy more?: Never true Do you have trouble paying for medicines?: No Do you have trouble getting transportation to medical appointments?: No Do you have trouble paying your heating and electricity bill?: No Do you have trouble taking care of your child, family member or friend?: No Do you have trouble with day-to-day activities such as bathing, preparing meals, shopping, managing finances, etc.?: No Are you currently unemployed and looking for a job?: No Are you interested in more education?: No Please select the resources that you would like help with: None Currently or been in a relationship where the following occur: no concerns reported THRIVE Score: 0 AUDIT C Alcohol Use Questionnaire (AUDIT-C) 1. How often do you have a drink containing alcohol?: Never 3. How often do you have six or more drinks on one occasion?: Never Total Score: 0 DEVON-7 AMB Questionnaire DEVON-7 Date DEVON - 7 assessed: 08/02/23 Feeling nervous, anxious, or on edge: 0 = Not at all Not being able to stop or control worryin = Not at all Worrying too much about different things: 0 = Not at all Trouble relaxin = Not at all Being so restless that it is hard to sit still: 0 = Not at all Becoming easily annoyed or irritable: 0 = Not at all Feeling afraid as if something awful might happen: 0 = Not at all Total DEVON-7 score (0-4 normal; 5-9 mild; 10-14 moderate; 15-21 severe): 0 Source: Developed by Drs. Msua Edwards, Hailey Montoya, Nicolás Rodas and colleagues, with an educational denise from [employer]. DEVON-7 Assessment Billing DEVON-7 Assessment Tool: DEVON-7 Assessment 38615 Physical exam (Primary Care) Vital Signs: Last Vital Signs Pulse 67 08/02/23 09:24 BP 144/86 H 08/02/23 09:24 Pulse Ox 98 08/02/23 09:24 Oxygen Delivery Method Room Air 08/02/23 09:24 BMI result Body Mass Index 27.8 Tobacco/Smoking Status: Tobacco use Status Tobacco use date assessed 08/02/23 08/02/23 09:30 Patient Tobacco Use Status Never used Tobacco 08/02/23 09:30 e-Cigarette/Vaping Use Never Used 08/02/23 09:30 PHQ-9: PHQ-9 Score PHQ-9: Total score 0 08/02/23 09:30 Depression Screening Interpretation: Negative Thrive Assessment: Date of Thrive Assessment Date Thrive assessed 08/02/23 08/02/23 09:30 Currently or been in a relationship where the following occur: no concerns reported Const General: alert; No acute distress Eyes Conjunctivae: conjunctivae normal Resp Auscultation: clear to auscultation bilaterally Cardio Rate: regular rate Rhythm: regular rhythm GI Inspection: Yes normal to inspection Extrem General: Yes normal to inspection and No edema Assessment and Plan Assessment & Plan (1) Knee pain, left: Comment: Status post left knee arthroplasty 2021 Code(s): M25.562 - Pain in left knee Plan: Patient follows up with orthopedics Dr. Dc seen in March 2023 IT band tendonitis advised hinged knee brace physical therapy formal Celebrex prescribed (2) Hypercholesterolemia: Code(s): E78.00 - Pure hypercholesterolemia, unspecified Plan: Avoid fried foods, chicken skin, eggs, butter margarine, pastries and meat. Be it pork or beef they have a lot of cholesterol LDL goal of less than 130 and triglyceride of less than 150. Patient on simvastatin 5 mg once a day. Patient can not tolerate simvastatin will try atorvastatin 10 mg once a day. Discussed lengthily regarding diet and exercise (3) GERD (gastroesophageal reflux disease): Code(s): K21.9 - Gastro-esophageal reflux disease without esophagitis Qualifiers: Esophagitis presence: without esophagitis Qualified Code(s): K21.9 - Gastro-esophageal reflux disease without esophagitis Plan: Avoid the foods that causes that usually spicy foods, tomato products, juices, coffee, soda and foods that your sensitive to. After eating do not lie down, allow 3-4 hours before in lie down. And keep the head of bed above 30 degrees to avoid the acid from going up. Presently on omeprazole (4) Generalized anxiety disorder: Code(s): F41.1 - Generalized anxiety disorder Plan: Continue with present medication (5) Blood pressure elevated without history of HTN: Code(s): R03.0 - Elevated blood-pressure reading, without diagnosis of hypertension Plan: Concern about elevated blood pressure in the office and advised to monitor blood pressure at home. Concern about weight increase also. Discussed about salt intake. Orders: Orders Lipid Panel 3 Months E78.00 - Pure hypercholesterolemia, unspecified Comprehensive Met. Panel 3 Months E78.00 - Pure hypercholesterolemia, unspecified Medications: New blood pressure monitor (Blood Pressure Kit) As directed 1 ea 0RF I10 - Essential (primary) hypertension, R03.0 - Elevated blood-pressure reading, without diagnosis of hypertension atorvastatin 10 mg PO DAILY 30 tabs 3RF E78.00 - Pure hypercholesterolemia, unspecified Refilled albuterol sulfate 90 mcg/actuation 1 inh inhalation QID PRN 8.5 grams 0RF shortness of breath or wheezing omeprazole 40 mg PO DAILY 90 caps 3RF K21.9 - Gastro-esophageal reflux disease without esophagitis Discontinued simvastatin Discontinued Reason: Patient Refused 5 mg PO BEDTIME 30 tabs 3RF E78.00 - Pure hypercholesterolemia, unspecified Coding Level of Care Code Est Pt Level 4 (94553) Diagnoses Knee pain, left M25.562 Hypercholesterolemia E78.00 Gastroesophageal reflux disease without esophagitis K21.9 Esophagitis presence: without esophagitis Generalized anxiety disorder F41.1 Blood pressure elevated without history of HTN R03.0 Additional Codes DEVON-7 Assessment Billing - DEVON-7 Assessment Tool: DEVON-7 Assessment [id number] ([id number])
== END 2023-08-02 10:16 | disposition home or self-care (01) ==
PROVIDERS: PCP Internal Medicine; Visit Provider Internal Medicine
DX: M25.562 Pain in left knee (principal); E78.00 Pure hypercholesterolemia, unspecified; K21.9 Gastro-esophageal reflux disease without esophagitis; F41.1 Generalized anxiety disorder; R03.0 Elevated blood-pressure reading, without diagnosis of hypertension
CPT/HCPCS: 99214

== ENCOUNTER 2023-08-27 11:08 | Outpatient (AMB) | payer MEDICARE, SELFPAY ==
--- NOTE | 2023-08-27 11:23 | MHC.OFFVIS ---
Intake Intake Visit Reasons: 1Y PSA(set)vm to confirm Intake Note: Patient is Present for Follow Up PSA Urology Medication: None Antibiotic Allergies: None Blood Thinners: None Confirmed Pharmacy: [facility] Allergies SALT Adverse Reaction (Unknown, Uncoded 08/27/23 11:29) Unknown SIMVASTATIN Adverse Reaction (Unknown, Uncoded 08/27/23 11:29) heart burn from strong dosage HPI HPI Comments History of Present Illness Details Raul is a pleasant male. He is a patient of Dr. Eduardo. He is seen for following urologic conditions - prostate cancer - renal cyst - stress incontinence Accompanied by Stable PSA Stable renal cyst Discussed sling for stress incontinence Currently using 2-3 pads per day Happy to continue PSA surveillance Information provided regarding penile clamp Prostate cancer Initial therapy radical prostatectomy 2007 PSA 12/12 <0.1, 08/16 <0.1 Associated conditions erectile dysfunction and mild stress incontinence Previously recommended Kegel exercises Renal cyst They present for - left side 7 cm simple renal cyst The renal mass was diagnosed - , incidentally Imaging included - 01/10 renal ultrasound 7 cm renal cyst - 07/15 renal ultrasound 1.4 cm right renal cyst, 7 cm left renal cyst stable Prior treatment(s) included - , surveillance Current symptoms include hematuria No dysuria No fever No chills No Follow up imaging includes renal ultrasound Planned therapeutic plan - continue with renal surveillance [facility] Medical History TSH elevation COVID-19 virus infection Peripheral vascular disease Impacted cerumen of both ears Chronic cough Numbness of toes Left leg swelling Stress incontinence Medicare annual wellness visit, initial Low back pain Travel advice encounter Knee pain, left Fall Tick bite Right knee pain Right shoulder pain Left cataract Hip pain, left Dysphagia Urinary tract infection Peptic ulcer disease Vitamin D deficiency Pulmonary nodule Post herpetic neuralgia Asbestos exposure Diastasis recti History of prostate cancer Asthma GERD (gastroesophageal reflux disease) Hypercholesterolemia Surgical History History of total left knee replacement Hx of colonoscopy History of arthroplasty of left knee History of nephrolithiasis History of tonsillectomy History of inguinal hernia repair History of prostatectomy Family History Father Colon cancer Mother CVD (cardiovascular disease) Myocardial infarction Social History Housing: House Alcohol intake: never Patient Tobacco Use Status: Never used Tobacco e-Cigarette/Vaping Use: Never Used Second Hand Smoke Exposure: No service: No Current occupational status: retired Cognitive needs: No Hearing needs: Yes Vision needs: Yes Review of Systems Const Denies chills and Denies fever(s) Card Reports no additional complaints and Denies syncope Resp Denies cough GI Denies abdominal pain and Denies heartburn Reports as per HPI and Denies change in libido Neuro Denies syncope Psych Denies change in libido Endo Denies change in libido Physical Exam Const General: cooperative, healthy appearing, comfortable and no acute distress Orientation/consciousness: patient oriented x3 HEENT Face and sinus: Yes normal facial exam Mouth: moist mucous membranes Neck Neck: Yes normal visual inspection, Yes full ROM and Yes trachea midline Chest Chest palpation & inspection: normal inspection of the chest Resp Effort & Inspection: normal respiratory effort, able to speak in complete sentences and no respiratory distress GI Inspection: Yes normal to inspection Back/Spine/Pelvis Cervical Spine: normal cervical lordosis Thoracic/Lumbar Spine: thoracic and lumbar spine normal to inspection Skin General skin exam: no rashes or lesions noted Neuro General: patient oriented x3, gait normal, tone normal and moves all extremities Extrem General: Yes normal to inspection and Yes capillary refill normal Assessment & Plan Assessment & Plan (1) Prostate cancer: Comment: October 2007 prostatectomy Code(s): C61 - Malignant neoplasm of prostate (2) Stress incontinence, male: Code(s): N39.3 - Stress incontinence (female) (male) Plan Twelve month follow-up Orders: Orders Prostate Specific Antigen 364 Days C61 - Malignant neoplasm of prostate Patient Instructions: Imaging studies, laboratory and physical exam results were discussed and reviewed in detail. No major barriers to patient understanding were identified. An opportunity to ask questions regarding the treatment plan was provided. All questions were answered. The patient expressed understanding and agreement with the above treatment plan. The patient is aware they should contact our office by phone for worsening of their current condition or the appearance of new urologic symptoms. Compliance is encouraged with any medications and followup testing that is ordered. It is a privilege to participate in the urologic care of your patient. If you have any questions or concerns regarding treatment for the above conditions, or other urologic issues, please do not hesitate to contact me. The office telephone contact is [phone]. This note is constructed using voice recognition software. While every effort has been made to ensure accuracy calender supervisor errors may have been included. Yours sincerely, Dr Erik Ramos MD, [facility] - Urology Providers of Expert, Compassionate Care for the Genitourinary System Coding Level of Care Code Est Pt Level 4 (29537) Diagnoses Prostate cancer C61 Stress incontinence, male N39.3
== END 2023-08-27 12:07 | disposition home or self-care (01) ==
PROVIDERS: Visit Provider Urology
DX: C61 Malignant neoplasm of prostate (principal); N39.3 Stress incontinence (female) (male)
CPT/HCPCS: 99213

== ENCOUNTER → 2023-08-27 11:08 | Outpatient (BNVA) | payer MEDICARE, SELFPAY | PROVIDERS: Visit Provider Urology | DX: C61 Malignant neoplasm of prostate (principal); N39.3 Stress incontinence (female) (male) | CPT/HCPCS: 99212 ==

== ENCOUNTER 2024-01-03 07:06 | Outpatient (REF) | payer MEDICARE, SELFPAY ==
[2024-01-03 08:24] LABS: Alanine Aminotransferase 14 U/L (0-40); Albumin Level 3.8 g/dL (3.5-5.0); Alkaline Phosphatase 66 U/L (39-117); Anion Gap 9 (12-20); Aspartate Amino Transferase 17 U/L (5-37); Bilirubin Total 0.7 mg/dL (0.0-1.0); Blood Urea Nitrogen 16 mg/dL (9-16); Calcium 8.7 mg/dL (8.4-10.2); Carbon Dioxide 27 mmol/L (22-29); Chloride 110 mmol/L (96-108); Cholesterol 190 mg/dL (<200); Estimated Glomerular Filt Rate > 60; Glucose Random 98 mg/dL (60-115); HDL Cholesterol 34 mg/dL (>40); LDL Cholesterol Calculated 140 mg/dL (<100); Potassium 4.1 mmol/L (3.3-5.1); Sodium 142 mmol/L (135-145); Total Protein 6.5 g/dL (6.5-8.0); Triglycerides 81 mg/dL (<150)
== END 2024-01-03 07:07 | disposition home or self-care (01) ==
LOC: HO.LAB 07:06
PROVIDERS: PCP Internal Medicine; Visit Provider Internal Medicine
DX: E78.00 Pure hypercholesterolemia, unspecified (principal)
CPT/HCPCS: 36415; 80053; 80061

== ENCOUNTER 2024-03-31 08:02 | Outpatient (AMB) | payer MEDICARE, SELFPAY ==
--- OUTSIDE RECORDS SUMMARY | 2024-03-31 08:05 | XMS_ITS | Continuity of Care Document ---
Author Organization [facility] Address [address] [place] [address]- Care Team Providers Care Department Helper Name Role Phone Abhi Littlejohn MD Primary Care Physician [phone] [place] [facility] [place] - 04/05/[address] [address]- Encounter Diagnosis Spinal stenosis, site unspecified(Final) - Discharge Disposition: A-D/C Home Attending Physician: Antionette Trimble Admitting Physician: Antionette Trimble Referring Physician: Antionette Trimble Allergies, Adverse Reactions, Alerts No Known Allergies Medications acetaminophen 325 mg oral tablet 650 mg, By Mouth, Every 6 hours, May take OTC not to exceed 3000 mg/day, Refills 0, Maintenance, 09/20/21 7:48:00 EDT, Partial fill upon patient request if the prescription is for a schedule II opioid drug. Start Date: 09/20/21 Status: Ordered apixaban 2.5 mg oral tablet 1 tablet = 2.5 mg, By Mouth, 2 times a day, # 60 tablet, 0 Refills, Maintenance, 09/20/21 7:46:00 EDT, Tablet, [facility], Partial fill upon patient request if the prescription is for aschedule II opioid drug., 169, cm, 09/20/21 6:31:00... Start Date: 09/20/21 Stop Date: 10/20/21 Status: Ordered Colace Capsule 100 mg, 1, capsule, By Mouth, 2 times a day, PRN, Refills 0, Maintenance, as needed for constipation, 09/20/21 7:48:00 EDT, Partial fill upon patient request if the prescription is for a schedule II opioid drug. Start Date: 09/20/21 Status: Ordered omeprazole 20 mg oral enteric coated tablet 20, mg, 1, tablet, By Mouth, Daily, 0, 0, 10/14/07 15:35:35, Print OBINNA Number, [id number], Constant Indicator Start Date: 10/14/07 Status: Ordered senna 187 mg oral tablet 1 tablet = 8.6 mg, By Mouth, Daily at bedtime, PRN as needed for constipation, 0 Refills, Maintenance, 09/20/21 7:48:00 EDT, Tablet, Partial fill upon patient request if the prescription is for a schedule II opioid drug. Start Date: 09/20/21 Status: Ordered simvastatin 5 mg oral tablet 1 tablet = 5 mg, By Mouth, Daily at bedtime, # 30 tablet, 0 Refills, Maintenance, 07/17/21 11:36:00EST, Tablet, Partial fill upon patient request if the prescription is for a schedule II opioid drug. Start Date: 07/17/21 Status: Ordered Patient Care team information Care Team Personnel Name: Doris Arizmendi RN Position: [facility] RN Member Role: Primary Care Nurse Name: Abhi Littlejohn MD Position: Reference Physician Member Role: PCP Address: Address: [address] [place] [address]- Name: Isadora Mora RN Position: S RN Member Role: Primary Care Nurse Care Team Related Persons Name: JAUN CRUZ Address: home [address] [place] [id number]
--- OUTSIDE RECORDS SUMMARY | 2024-03-31 08:05 | XMS_ITS | Continuity of Care Document ---
Author Organization [facility] [place] [facility] Address [address] [place] [address]- Care Team Providers Care Car Blocker Name Role Phone Abhi Littlejohn MD Primary Care Physician Encounter [facility] [place] [place] ACCT R [id number] Date(s): 02/12/23 - 03/14/[address] [address]- Attending Physician: Olga Lidia Henderson Admitting Physician: Olga Lidia Henderson Referring Physician: AdmtrOlga Lidia Allergies, Adverse Reactions, Alerts No Known Allergies [...] 0 Refills, Maintenance, 09/20/21 7:46:00 EDT, Tablet, [facility], Partial fill upon patient request [...] 0, 0, 10/14/07 15:35:35, Print OBINNA Number, [id number], Constant Indicator Start Date: 10/14/07 Status: Ordered [...] Team Personnel Name: Doris Arizmendi RN Position: S RN Member Role: Primary Care Nurse Name: Abhi Littlejohn MD Position: Reference Physician Member Role: PCP Address: Address: [address] [place] [address]- Name: Isadora Mora RN Position: S RN Member Role: Primary Care Nurse Care Team Related Persons Name: JAUN CRUZ Address: [address] [address]
--- OUTSIDE RECORDS SUMMARY | 2024-03-31 08:05 | XMS_ITS | Patient Health Record ---
Author Organization [facility] Address [address] [place] [address] Care Team Providers Care Currency Machine Operator Name Role Phone Myles Eduardo MD Primary Care Provider Musa Bills [phone] ALLERGIES Allergen (clinical drug ingredient) Drug/Non Drug Allergy documented on EMR Reaction Allergy Type Onset Date Status simvastatin Simvastatin in strong doses/heartburn Drug Allergy Active salt (uncoded) Unknown Allergy Activ e REASON FOR REFERRAL No Information MEDICATIONS Medication SIG (Take, Route, Frequency, Duration) Notes Start Date End Date Status Vitamin D3 25 MCG (1000 UT) 1 capsule Or ally Once a day for 30 day(s) Active Simvastatin 5 MG Oral for 90 A ctive Omeprazole 20 MG 1 capsule Orally Onc e a day Active Vitamin B12 1000 MCG 1 tablet Orally Onc e a day Active IMMUNIZATIONS Vaccine Route Administration Date Status Comme nts Influenza Unknown 02/22/2021 Administered SOCIAL HISTORY Sex Assigned At : Social History Observation Description Sex Assigned At Unknown PROBLEMS Problem Type ICD Code Onset Dates Problem Status W/U Status Risk SNOMED Code Notes Problem Encounter for screening for malignant neoplasm of colon (Z12.11) Active confirmed 719438999 Problem History of adenomatous polyp of colon (Z86.010) Active confirmed 145139458 Problem Encounter for screening for malignant neoplasm of rectum (Z12.12) Active confirmed Screening fo r malignant neoplasm of rectum (276052537) Problem Preprocedural examination (Z01.818) Active confirmed 57264801 Problem History of colon polyps (Z86.010) Active confirmed History of polyp of colon (571521743) Problem Diverticulosis of colon (K57.30) Active confirmed Diverticulosi s of colon (487658340) PLAN OF TREATMENT Future Test Test Name Order Date COLONOSCOPY 08/22/2016 COLONOSCOPY 01/18/2022 Insurance Providers Payer Name Payer Address Payer Phone Subscriber Number Group Number Insured Name Patient Relationship to Insured Coverage Start Date Coverage End Date MEDICARE OF [place] [address] [place] [id number] OWEN CRUZ Self - patient is the insured [employer] ATT[employer] CLAIMS [address] [place] [address] [phone] [id number] OWEN CRUZ Self - patient is the insured MEDICAL (GENERAL) HISTORY Medical History History ICD Code Colonoscopy 03-20-2011--1 sma ll tubular adenoma removed; neg. colonoscopy [place] [address] Dumont GERD--EGD in 1996--gastritis, neg. H.pyl cj Prostate cancer--surgery as below Denies UT,DM,CVA,Lung disease,renal dise ase Negative cardiac cath before 2007 Pulmonary nodule Peptic ulcer disease in his 20's Hypercholesterolemia Asthma Asbestos exposure COVID positive 12/2021-mild Colonoscopy 10/2016 with a hyperplastic p olyp Surgical History Surgery Date(Month/Year) Radical [place] [address] Javan pardo for prostate cancer Bilateral inguinal hernia Appendectomy Left knee replacement 08/2021 Tonsillectomy
--- NOTE | 2024-03-31 08:06 | AM.OFFWIN_ITS ---
Intake Vital Signs 03/31/24 08:10 Weight 178 lb BP 134/80 Blood Pressure Location Rt brachial Position Sitting Pulse 85 Pulse Source Pulse Oximeter Temp 97.8 F Temp Source Oral Pulse Oximetry (%) 98 Oxygen Delivery Method Room Air Intake Visit Reasons: EP-chest sore and congested Intake Note: Patient here for congestion, cough and chest tightness 0and left rib soreness due to cough which is going on for about 2 weeks. Patient Tobacco Use Status: Never used Tobacco Allergies SALT Adverse Reaction (Unknown, Uncoded 03/31/24 08:10) Unknown SIMVASTATIN Adverse Reaction (Unknown, Uncoded 03/31/24 08:10) heart burn from strong dosage Do you need a note to return to daycare/school/sports/work: No HPI HPI Comments History of Present Illness Details Patient is a 74yo M who presents to office with [address] and cough Initially began as ST and used throat spray and that resolved in 2 days Cough has been persistent with associated fatigue, muscle aches First tried OTC cough syrup and rest without relief States 3-4 days ago felt that he was getting better and his energy returned to normal but cough continual and chest tight No phlegm No fever or chills Energy back to normal but lungs still abnormal Unable to see PCP [facility] Medical History TSH elevation COVID-19 virus infection Peripheral vascular disease Impacted cerumen of both ears Chronic cough Numbness of toes Left leg swelling Stress incontinence Medicare annual wellness visit, initial Low back pain Travel advice encounter Knee pain, left Fall Tick bite Right knee pain Right shoulder pain Left cataract Hip pain, left Dysphagia Urinary tract infection Peptic ulcer disease Vitamin D deficiency Pulmonary nodule Post herpetic neuralgia Asbestos exposure Diastasis recti History of prostate cancer Asthma GERD (gastroesophageal reflux disease) Hypercholesterolemia Surgical History History of total left knee replacement Hx of colonoscopy History of arthroplasty of left knee History of nephrolithiasis History of tonsillectomy History of inguinal hernia repair History of prostatectomy Family History Father Colon cancer Mother CVD (cardiovascular disease) Myocardial infarction Social History Housing: House Alcohol intake: never Patient Tobacco Use Status: Never used Tobacco e-Cigarette/Vaping Use: Never Used Second Hand Smoke Exposure: No service: No Current occupational status: retired Cognitive needs: No Hearing needs: Yes Vision needs: Yes Review of Systems Const Reports fatigue and Denies fever(s) Eyes Denies change in vision ENT Denies ear discharge, Denies otalgia, Reports nasal discharge, Denies sinus pressure, Reports sore throat, Denies throat swelling and Denies tongue swelling Card Denies chest pain and Denies dyspnea Resp Denies change in phlegm color, Reports chest congestion, Reports cough and Denies dyspnea GI Denies abdominal pain Musc Denies back pain Skin/Breast Denies rash Endo Reports fatigue Aller/Immun Denies throat swelling and Denies tongue swelling Physical Exam Vital Signs: Last Vital Signs Temp 97.8 F 03/31/24 08:10 Pulse 85 03/31/24 08:10 BP 134/80 03/31/24 08:10 Pulse Ox 98 03/31/24 08:10 Oxygen Delivery Method Room Air 03/31/24 08:10 General: Non-toxic, NAD. Speaking full sentences. Skin: Warm dry throughout Eye: EOMI HENT: Airway patent. Uvula midline. No pharyngeal erythema or edema. No TECHNICAL MGR. Bilateral canals clear. TM non-erythematous, non-bulging. No TM perforation or hemotympanum noted. Respiratory: + rhonchi bilateral lungs R >L which cleared with cough. Nowheezes, rales Cardiac: RRR. No murmur MSK: Full ROM extremities. Neurology: A/O. No aphasia or facial droop. Gait without abnormality Psych: Good mood and affect Assessment & Plan Assessment & Plan (1) Upper respiratory infection: Code(s): J06.9 - Acute upper respiratory infection, unspecified Qualifiers: URI type: unspecified viral URI Qualified Code(s): J06.9 - Acute upper respiratory infection, unspecified Plan: Patient seen and evaluated. Lungs without crackles or wheeze Rhonchi cleared with cough Discussed how to use albuterol at home and gave 4 days of predniosne Take with food, avoid nsaids and alcohol Patient gave verbal understanding and had no additional questions or concerns at time of discharge All questions answered Medications: New prednisone 40 mg (2 x 20 mg) PO DAILY 8 tabs 0RF Coding Level of Care Code Est Pt Level 3 (50125) Diagnoses Viral upper respiratory tract infection J06.9 URI type: unspecified viral URI
[2024-03-31 08:10] VITALS: BP 134/80; PULSE 85; TEMP 36.6; O2SAT 98
== END 2024-03-31 08:38 | disposition home or self-care (01) ==
PROVIDERS: PCP Internal Medicine; Visit Provider Physician Assistant
DX: J06.9 Acute upper respiratory infection, unspecified (principal)

== ENCOUNTER → 2024-03-31 08:02 | Outpatient (BNVA) | payer MEDICARE, SELFPAY | PROVIDERS: PCP Internal Medicine; Visit Provider Physician Assistant | DX: J06.9 Acute upper respiratory infection, unspecified (principal) | CPT/HCPCS: 99212 ==

== ENCOUNTER 2024-04-09 15:27 | Outpatient (AMB) | payer MEDICARE, SELFPAY ==
--- NOTE | 2024-04-09 15:29 | MHC.PC.OV ---
Vital Signs 04/09/24 15:31 Height 5 ft 8 in Weight 173 lb 8 oz BMI 26.4 BP 120/62 Blood Pressure Location Lt brachial Position Sitting Pulse 59 Pulse Source Pulse Oximeter Pulse Oximetry (%) 95 Oxygen Delivery Method Room Air Intake Visit Reasons: F/U Cholesterol Intake Note: Patient is here to follow up on Cholesterol. 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: Present Accompanied by: Spouse Allergies SALT Adverse Reaction (Unknown, Uncoded 04/09/24 15:30) Unknown SIMVASTATIN Adverse Reaction (Unknown, Uncoded 04/09/24 15:30) heart burn from strong dosage Tobacco use date assessed: 04/09/24 Fall risk assessment: No Falls in past year Last assessed Fall Risk: 04/09/24 Dental Screening Dental Screen Date: 04/09/24 Did you have a dental visit in the last 12 months?: Yes Did you have a dental problem in the last 6 months where you did not have access to dental care?: No Was dental information given to patient?: Patient has dentist HPI F/U Cholesterol HPI Details 74-year-old male with hypercholesterolemia GERD generalized anxiety disorder left knee pain last seen in July 2023. Patient was also noted to have an elevated blood pressure at that time. Patient is here for follow-up. Patient's colonoscopy is up-to-date February 2022. Review of the notes March 31 was in the Urgent [facility] for congestion treated upper respiratory infection and was given prednisone. Patient also follows up with urology seen in August 26 prostate cancer history renal cyst and stress incontinence. Stable PSA, renal cyst discussed about penile clamp. Patient had a prior radical prostatectomy in 2007. L knee surgery ARTHROSCOPIC to be done 04/24/2024 [facility] Medical History TSH elevation COVID-19 virus infection Peripheral vascular disease Impacted cerumen of both ears Chronic cough Numbness of toes Left leg swelling Stress incontinence Medicare annual wellness visit, initial Low back pain Travel advice encounter Knee pain, left Fall Tick bite Right knee pain Right shoulder pain Left cataract Hip pain, left Dysphagia Urinary tract infection Peptic ulcer disease Vitamin D deficiency Pulmonary nodule Post herpetic neuralgia Asbestos exposure Diastasis recti History of prostate cancer Asthma GERD (gastroesophageal reflux disease) Hypercholesterolemia Surgical History History of total left knee replacement Hx of colonoscopy History of arthroplasty of left knee History of nephrolithiasis History of tonsillectomy History of inguinal hernia repair History of prostatectomy Family History Father Colon cancer Mother CVD (cardiovascular disease) Myocardial infarction Social History Housing: House Alcohol intake: never Patient Tobacco Use Status: Never used Tobacco e-Cigarette/Vaping Use: Never Used Second Hand Smoke Exposure: No service: No Current occupational status: retired Cognitive needs: No Hearing needs: Yes Vision needs: Yes Questionnaire Thrive Questionnaire Date Thrive assessed: 08/02/23 DEVON-7 AMB Questionnaire DEVON-7 Date DEVON - 7 assessed: 08/02/23 Source: Developed by Drs. Musa Edwards, Hailey Montoya, Nicolás Rodas and colleagues, with an educational denise from [employer]. Physical exam (Primary Care) Vital Signs: Last Vital Signs Pulse 59 04/09/24 15:31 BP 120/62 04/09/24 15:31 Pulse Ox 95 04/09/24 15:31 Oxygen Delivery Method Room Air 04/09/24 15:31 BMI result Body Mass Index 26.4 Tobacco/Smoking Status: Tobacco use Status Tobacco use date assessed 04/09/24 04/09/24 15:36 Patient Tobacco Use Status Never used Tobacco 04/09/24 15:36 e-Cigarette/Vaping Use Never Used 04/09/24 15:36 Thrive Assessment: Date of Thrive Assessment Date Thrive assessed 08/02/23 04/09/24 15:36 Const General: alert; No acute distress Eyes Conjunctivae: conjunctivae normal Resp Auscultation: clear to auscultation bilaterally Cardio Rate: regular rate Rhythm: regular rhythm GI Inspection: Yes normal to inspection Extrem General: Yes normal to inspection and No edema Office Procedures Flu Questionnaire Does the patient have a severe egg allergy?: No Does the patient have severe life threatening allergies?: No Does the patient have a fever or illness today?: No Has the patient ever had Guillain-Farner Syndrome?: No Has the patient ever had any past reaction to a flu shot?: No Immunizations Fluarix Triv [id number] (PF) 45 mcg (15 mcg x 3)/0.5 mL IM syringe Performing Provider: Myles Eduardo MD Performing Location: [facility] Administered by: Alda Erickson RN on 04/09/24 15:52 Dose Route Admin Location Dispensed Lot Number Expiration Date NDC [employer] 0.5 mL IM Left Deltoid 0.5 mL [id number] 12/21/24 [id number] [place] VIS Given Date VIS Provided VIS Publication Date 04/09/24 Single Vaccine 21 Eligibility Eligibility Date Funding Source Not [facility] Eligible 04/09/24 Private Coding Level of Care Code Est Pt Level 4 (99070) Diagnoses Hypercholesterolemia E78.00 Gastroesophageal reflux disease without esophagitis K21.9 Esophagitis presence: without esophagitis Mild intermittent asthma without complication J45.20 Asthma severity: mild Asthma persistence: intermittent Asthma complication type: uncomplicated Generalized anxiety disorder F41.1 Primary osteoarthritis of both knees M17.0 Osteoarthritis type: primary Prostate cancer C61 Stress incontinence, male N39.3 Acute cough R05.1 Cough type: acute Assessment & Plan Assessment & Plan (1) Hypercholesterolemia: Code(s): E78.00 - Pure hypercholesterolemia, unspecified Category: Medical Plan: Avoid fried foods, chicken skin, eggs, butter margarine, pastries and meat. Be it pork or beef they have a lot of cholesterol presently on atorvastatin 10 mg once a day December 2023 last blood work. LDL goal of less than 130 and triglyceride of less than 150. (2) GERD (gastroesophageal reflux disease): Code(s): K21.9 - Gastro-esophageal reflux disease without esophagitis Category: Medical Qualifiers: Esophagitis presence: without esophagitis Qualified Code(s): K21.9 - Gastro-esophageal reflux disease without esophagitis Plan: Avoid the foods that causes that usually spicy foods, tomato products, juices, coffee, soda and foods that your sensitive to. After eating do not lie down, allow 3-4 hours before in lie down. And keep the head of bed above 30 degrees to avoid the acid from going up. (3) Asthma: Code(s): J45.909 - Unspecified asthma, uncomplicated Category: Medical Qualifiers: Asthma severity: mild Asthma persistence: intermittent Asthma complication type: uncomplicated Qualified Code(s): J45.20 - Mild intermittent asthma, uncomplicated Plan: On albuterol as needed (4) Generalized anxiety disorder: Code(s): F41.1 - Generalized anxiety disorder Category: Medical Plan: Stable (5) Osteoarthritis of knees, bilateral: Code(s): M17.0 - Bilateral primary osteoarthritis of knee Category: Medical Qualifiers: Osteoarthritis type: primary Qualified Code(s): M17.0 - Bilateral primary osteoarthritis of knee Plan: Continue to keep active on celecoxib 200 mg once a day. scheduled L arthroscopic surgery Dr. Nguyen 04/24/2024 (6) Prostate cancer: Comment: October 2007 prostatectomy Code(s): C61 - Malignant neoplasm of prostate Category: Medical Plan: Patient is being followed up by Urology surveillance (7) Stress incontinence, male: Code(s): N39.3 - Stress incontinence (female) (male) Category: Medical Plan: Timed voiding meaning every 1-2 hours even if you do not feel like urinating empty the bladder, avoid drinks with high sweet content like juices or caffeine that makes her urinate, 2 hours before you sleep hold liquids so that in the morning you do not get the bladder to be too full. (8) Cough: Code(s): R05.9 - Cough, unspecified Category: Medical Qualifiers: Cough type: acute Qualified Code(s): R05.1 - Acute cough Plan: Will start workup with allergy problem, asthma and then reflux. Pulmonary function test requested. Orders: Orders Influenza [id number] Immunization Today Z23 - Encounter for immunization XR chest 2V Today R05.9 - Cough, unspecified PFT pulmonary function test Today R05.9 - Cough, unspecified Medications: Discontinued prednisone Discontinued Reason: Patient Completed Course 40 mg (2 x 20 mg) PO DAILY 8 tabs 0RF
[2024-04-09 15:31] VITALS: BP 120/62; PULSE 59; O2SAT 95; BMI 26.4
== END 2024-04-09 16:38 | disposition home or self-care (01) ==
PROVIDERS: PCP Internal Medicine; Visit Provider Internal Medicine
DX: E78.00 Pure hypercholesterolemia, unspecified (principal); K21.9 Gastro-esophageal reflux disease without esophagitis; C61 Malignant neoplasm of prostate; J45.20 Mild intermittent asthma, uncomplicated; F41.1 Generalized anxiety disorder; M17.0 Bilateral primary osteoarthritis of knee; N39.3 Stress incontinence (female) (male); R05.1 Acute cough

== ENCOUNTER → 2024-04-09 15:27 | Outpatient (BNVA) | payer MEDICARE, SELFPAY | PROVIDERS: PCP Internal Medicine; Visit Provider Internal Medicine | DX: Z23 Encounter for immunization (principal); E78.00 Pure hypercholesterolemia, unspecified; K21.9 Gastro-esophageal reflux disease without esophagitis; J45.20 Mild intermittent asthma, uncomplicated; F41.1 Generalized anxiety disorder; M17.0 Bilateral primary osteoarthritis of knee; C61 Malignant neoplasm of prostate; N39.3 Stress incontinence (female) (male); R05.1 Acute cough | CPT/HCPCS: 90471; 90656; 99212 ==

== ENCOUNTER 2024-04-17 09:16 | Outpatient (REF) | payer MEDICARE, SELFPAY ==
--- NOTE | ~2024-04-17 | XR_ITS ---
EXAMINATION: XR CHEST 2 VIEWS CLINICAL INFORMATION: Cough, unspecified R05.9. COMPARISON: XR Chest 06/23/2022 TECHNIQUE: 2 views of the chest were obtained. FINDINGS: No significant abnormality is noted involving the heart, lungs, mediastinum, bony thorax or soft tissues. XR/XR chest 2V IMPRESSION: Unremarkable examination. Electronically signed by: Jose C Camargo MD 06/03/2024 01:40 PM [facility]
== END 2024-04-17 09:17 | disposition home or self-care (01) ==
LOC: HO.XRAY 09:16
PROVIDERS: PCP Internal Medicine; Visit Provider Internal Medicine
DX: R05.9 Cough, unspecified (principal)
CPT/HCPCS: 71046

== ENCOUNTER 2024-05-28 09:54 | Outpatient (REF) | payer MEDICARE, SELFPAY ==
--- NOTE | 2024-05-28 09:59 | PFT_ITS ---
Flows: FEV1: 132 % of predicted at 3.70 L FVC: 120 % of predicted at 4.51 L FEV1/FVC: 82 % Bronchodilator response: Absent Volumes: Total lung capacity: 99 % of predicted at 6.56 L Residual volume: 76 % of predicted at 1.92 L Slow vital capacity: 117 % of predicted at 4.63 L Expiratory reserve volume: 82 % of predicted at 0.91 L Diffusion capacity: Normal Impression: No obstructive or restrictive ventilatory defect. No bronchodilator response. Normal pulmonary function test. MTDD
[2024-05-28 11:36] VITALS: PULSE 97; O2SAT 97
== END 2024-05-28 09:55 | disposition home or self-care (01) ==
LOC: HO.RESP 09:54
PROVIDERS: PCP Internal Medicine; Visit Provider Internal Medicine
DX: R05.9 Cough, unspecified (principal)
CPT/HCPCS: 94010; 94640; 94727; 94729

== ENCOUNTER → 2024-05-28 09:59 | Outpatient (BNV) | payer MEDICARE, SELFPAY | PROVIDERS: PCP Internal Medicine; Visit Provider Internal Medicine Pulmonary Disease | DX: R05.9 Cough, unspecified (principal) | CPT/HCPCS: 94060; 94727; 94729 ==

== ENCOUNTER 2024-07-28 09:56 | Outpatient (AMB) | payer MEDICARE, SELFPAY ==
[2024-07-28 10:06] VITALS: BP 112/68; PULSE 70; O2SAT 97; BMI 27.4
--- NOTE | 2024-07-28 10:06 | A.OFFPC_ITS ---
Vital Signs 07/28/24 10:06 Height 5 ft 8 in Weight 180 lb BMI 27.4 BP 112/68 Blood Pressure Location Lt brachial Pulse 70 Pulse Source Pulse Oximeter Pulse Oximetry (%) 97 Oxygen Delivery Method Room Air Intake Visit Reasons: Cough Allergies SALT Adverse Reaction (Unknown, Uncoded 07/28/24 10:06) Unknown SIMVASTATIN Adverse Reaction (Unknown, Uncoded 07/28/24 10:06) heart burn from strong dosage Tobacco use date assessed: 07/28/24 Fall risk assessment: No Falls in past year Last assessed Fall Risk: 07/28/24 Dental Screening Dental Screen Date: 07/28/24 Did you have a dental visit in the last 12 months?: Yes Did you have a dental problem in the last 6 months where you did not have access to dental care?: No Was dental information given to patient?: Patient has dentist HPI Cough HPI Details The patient is a 74-year-old male presenting with a cough. The cough has been ongoing and was not considered bothersome by the patient. It was initially reported during a follow-up in March 2024. Basic investigations including pulmonary function tests and a chest X-ray were conducted; both returned normal results. The patient has been taking an [id number]-[id number] allergy medication (likely Zyrtec) with some improvement, noting cough occurrence reduced to only a couple of times a day, primarily to clear the throat. The patient has a history of hypercholesterolemia, well-managed over the years, and is under regular monitoring. His asthma is mentioned without any acute exacerba tions. He experiences GERD, for which omeprazole has been prescribed. There is a noted history of prostate cancer since 2007. The patient describes experiencing Raynaud's phenomenon, where exposure to cold results in color changes of the fingers, becoming white and then purple, followed by a return to normal upon warming. Knee pain, likely due to arthritis, is apparent, and lifestyle adjustments have been made. Vision changes have been observed despite previous cataract surgery. A personal history of shingles, primarily with tingling pain upon touch, is reported. He adheres to wellness measures such as mask-wearing during flu season and regular handwashing to prevent infections like influenza, COVID-19, RSV, and norovirus. His bowel movements are regular when diet includes sufficient hydration and fiber. Activity declines in winter but increases in fair weather due to outdoor pursuits. [facility] Medical History TSH elevation COVID-19 virus infection Peripheral vascular disease Impacted cerumen of both ears Chronic cough Numbness of toes Left leg swelling Stress incontinence Medicare annual wellness visit, initial Low back pain Travel advice encounter Knee pain, left Fall Tick bite Right knee pain Right shoulder pain Left cataract Hip pain, left Dysphagia Urinary tract infection Peptic ulcer disease Vitamin D deficiency Pulmonary nodule Post herpetic neuralgia Asbestos exposure Diastasis recti History of prostate cancer Asthma GERD (gastroesophageal reflux disease) Hypercholesterolemia Surgical History History of total left knee replacement Hx of colonoscopy History of arthroplasty of left knee History of nephrolithiasis History of tonsillectomy History of inguinal hernia repair History of prostatectomy Family History Father Colon cancer Mother CVD (cardiovascular disease) Myocardial infarction Social History Housing: House Alcohol intake: never Patient Tobacco Use Status: Never used Tobacco Tobacco use type: Cigarette e-Cigarette/Vaping Use: Never Used Second Hand Smoke Exposure: No service: No Current occupational status: retired Cognitive needs: No Hearing needs: Yes Vision needs: Yes Questionnaire PHQ-9 Over the last 2 weeks, how often have you been bothered by any of the following problems? 1. Little interest or pleasure in doing things: not at all 2. Feeling down, depressed, or hopeless: not at all 3. Trouble falling or staying asleep, or sleeping too much: not at all 4. Feeling tired or having little energy: not at all 5. Poor appetite or overeating: not at all 6. Feeling bad about yourself - or that you are a failure or have let yourself or your family down: not at all 7. Trouble concentrating on things, such as reading the newspaper or watching television: not at all 8. Moving or speaking so slowly that other people could have noticed. Or the opposite - being so fidgety or restless that you have been moving around a lot more than usual: not at all 9. Thoughts that you would be better off or of hurting yourself in some way: not at all Total score: 0 Depression Screening Interpretation: Negative Depression Screening Done: Yes 41193 - PHQ-9 Billing: Yes Source: Developed by Drs. Musa Edwards, Hailey Montoya, Nicolás Rodas and colleagues, with an educational denise from [employer]. Thrive Questionnaire Date Thrive assessed: 07/28/24 I am a: Patient What is your living situation today?: I have a steady place to live Within the past 12 months, did the food you bought not last and you didn't have the money to get more?: Never true Within the past 12 months, did you worry whether your food would run out before you got money to buy more?: Never true Do you have trouble paying for medicines?: No Do you have trouble getting transportation to medical appointments?: No Do you have trouble paying your heating and electricity bill?: No Do you have trouble taking care of your child, family member or friend?: No Do you have trouble with day-to-day activities such as bathing, preparing meals, shopping, managing finances, etc.?: No Are you currently unemployed and looking for a job?: No Are you interested in more education?: No Currently or been in a relationship where the following occur: No concerns reported THRIVE Score: 0 AUDIT C Alcohol Use Questionnaire (AUDIT-C) 1. How often do you have a drink containing alcohol?: Never 3. How often do you have six or more drinks on one occasion?: Never Total Score: 0 DEVON-7 AMB Questionnaire DEVON-7 Date DEVON - 7 assessed: 07/28/24 Feeling nervous, anxious, or on edge: 0 = Not at all Not being able to stop or control worryin = Not at all Worrying too much about different things: 0 = Not at all Trouble relaxin = Not at all Being so restless that it is hard to sit still: 0 = Not at all Becoming easily annoyed or irritable: 0 = Not at all Feeling afraid as if something awful might happen: 0 = Not at all Total DEVON-7 score (0-4 normal; 5-9 mild; 10-14 moderate; 15-21 severe): 0 Source: Developed by Hailey Monroy Kurt Kroenke and colleagues, with an educational denise from [employer]. Physical exam (Primary Care) Vital Signs: Last Vital Signs Pulse 70 07/28/24 10:06 BP 112/68 07/28/24 10:06 Pulse Ox 97 07/28/24 10:06 Oxygen Delivery Method Room Air 07/28/24 10:06 BMI result Body Mass Index 27.4 Tobacco/Smoking Status: Tobacco use Status Tobacco use date assessed 07/28/24 07/28/24 10:08 Patient Tobacco Use Status Never used Tobacco 07/28/24 10:08 Tobacco use type Cigarette 07/28/24 10:08 e-Cigarette/Vaping Use Never Used 07/28/24 10:08 PHQ-9: PHQ-9 Score PHQ-9: Total score 0 07/28/24 10:08 Depression Screening Interpretation: Negative Thrive Assessment: Date of Thrive Assessment Date Thrive assessed 07/28/24 07/28/24 10:08 Currently or been in a relationship where the following occur: No concerns reported Const General: alert; No acute distress Eyes Conjunctivae: conjunctivae normal Resp Auscultation: clear to auscultation bilaterally Cardio Rate: regular rate Rhythm: regular rhythm GI Inspection: Yes normal to inspection Extrem General: Yes normal to inspection and No edema Coding Level of Care Code Est Pt Level 4 (37942) Diagnoses Acute cough R05.1 Cough type: acute Gastroesophageal reflux disease without esophagitis K21.9 Esophagitis presence: without esophagitis Hypercholesterolemia E78.00 Additional Codes PHQ-9 - 33103 - PHQ-9 Billing: Yes ([id number]) Assessment & Plan Assessment & Plan (1) Cough: Code(s): R05.9 - Cough, unspecified Category: Medical Qualifiers: Cough type: acute Qualified Code(s): R05.1 - Acute cough (2) GERD (gastroesophageal reflux disease): Code(s): K21.9 - Gastro-esophageal reflux disease without esophagitis Category: Medical Qualifiers: Esophagitis presence: without esophagitis Qualified Code(s): K21.9 - Gastro-esophageal reflux disease without esophagitis (3) Hypercholesterolemia: Code(s): E78.00 - Pure hypercholesterolemia, unspecified Category: Medical Plan - Continue monitoring hypercholesterolemia with regular lipid panels; dietary modifications and current medications should be maintained. - Asthma controlled; no worsening respiratory symptoms. Continue current management. - GERD managed with omeprazole; monitor for changes. - No immediate action required for cough, consider further evaluation if patient reports worsening symptoms. - Encourage precautions against infection, including consistent mask-wearing and hand hygiene. - Maintain current management for Raynaud's phenomenon; advise avoidance of cold-exposure and warming measures. - Discussed lifestyle modifications to manage knee pain and arthritis. Advise routine activities that avoid weight-bearing stress. - Address any vision changes with regular ophthalmological evaluations; potential optometry follow-up recommended. - For the past history of shingles, advise on recognizing symptoms and managing acute episodes if they recur. - Schedule routine blood work in six months to monitor for diabetes, renal function, liver function, and reevaluate prostate-specific antigen levels. - Encourage continued hydration and fiber intake for bowel regularity. Orders: Orders Comprehensive Met. Panel 6 Months E78.00 - Pure hypercholesterolemia, unspecified Thyroid Stimulating Hormone 6 Months E78.00 - Pure hypercholesterolemia, unspecified Prostate Specific Antigen Scr 6 Months E78.00 - Pure hypercholesterolemia, unspecified Complete Blood Count Auto Diff 6 Months E78.00 - Pure hypercholesterolemia, unspecified Free T4 (Free Thyroxine) 6 Months E78.00 - Pure hypercholesterolemia, unspecified Lipid Panel 6 Months E78.00 - Pure hypercholesterolemia, unspecified Vitamin B12 and Folate 6 Months E78.00 - Pure hypercholesterolemia, unspecified Hemoglobin A1c 6 Months E78.00 - Pure hypercholesterolemia, unspecified
== END 2024-07-28 10:56 | disposition home or self-care (01) ==
PROVIDERS: PCP Internal Medicine; Visit Provider Internal Medicine
DX: R05.1 Acute cough (principal); K21.9 Gastro-esophageal reflux disease without esophagitis; E78.00 Pure hypercholesterolemia, unspecified

== ENCOUNTER → 2024-07-28 09:56 | Outpatient (BNVA) | payer MEDICARE, SELFPAY | PROVIDERS: PCP Internal Medicine; Visit Provider Internal Medicine | DX: R05.1 Acute cough (principal); K21.9 Gastro-esophageal reflux disease without esophagitis; E78.00 Pure hypercholesterolemia, unspecified | CPT/HCPCS: 96127; 99212 ==

== ENCOUNTER 2024-08-26 07:36 | Outpatient (REF) | payer MEDICARE, SELFPAY ==
--- OUTSIDE RECORDS SUMMARY | 2024-08-26 07:39 | XMS_ITS | Patient Health Record ---
Author Organization [facility] Address [address] [place] [address] Care Team Providers Care First Sampler Name Role Phone Myles Eduardo MD Primary Care Provider Musa Bills [phone] Allergies Allergen (clinical drug ingredient) Drug/Non Drug Allergy documented on EMR Reaction Allergy Type Onset Date Status simvastatin Simvastatin in strong doses/heartburn Drug Allergy Active salt (uncoded) Unknown Allergy Activ e Reason For Referral No Information Medications Medication SIG (Take, Route, Frequency, Duration) Notes Start Date End Date Status Vitamin D3 25 MCG (1000 UT) 1 capsule Or ally Once a day for 30 day(s) Active Simvastatin 5 MG Oral for 90 A ctive Omeprazole 20 MG 1 capsule Orally Onc e a day Active Vitamin B12 1000 MCG 1 tablet Orally Onc e a day Active Immunizations Vaccine Route Administration Date Status Comme nts Influenza Unknown 02/22/2021 Administered Problems Problem Type SNOMED Code ICD Code Onset Dates Problem Status W/U Status Risk Notes Problem 069221150 Encounter for screening for malignant neoplasm of colon (Z12.11) Active confirmed Problem 265846007 History of adenomatous polyp of colon (Z86.010) Active confirmed Problem Screening for malignant neoplasm of rectum (269967326) Encounter for screening for malignant neoplasm of rectum (Z12.12) Active confirmed Problem 55652623 Preprocedural examination (Z01.818) Active confirmed Problem History of polyp of colon (208618477) History of colon polyps (Z86.010) Active confirmed Problem Diverticulosis of colon (977033051) Diverticulosis of colon (K57.30) Active confirmed Plan Of Treatment Future Test Test Name Order Date COLONOSCOPY 08/22/2016 COLONOSCOPY 01/18/2022 Insurance Providers Payer Name Payer Address Payer Phone Subscriber Number Group Number Insured Name Patient Relationship to Insured Coverage Start Date Coverage End Date MEDICARE OF [place] [address] [place] [id number] [phone] [id number] OWEN CRUZ Self - patient is the insured MEDEX ATTN CLAIMS [address] [place] [address] [id number] OW[employer] CRUZ Self - patient is the insured Medical (General) History Medical History History ICD Code Colonoscopy 03-20-2011--1 sma ll tubular adenoma removed; neg. colon[place] [address] Dumont GERD--EGD in 1996--gastritis, neg. H.pyl cj Prostate cancer--surgery as below Denies PA,DM,CVA,Lung disease,renal dise ase Negative cardiac cath before 2007 Pulmonary nodule Peptic ulcer disease in his 20's Hypercholesterolemia Asthma Asbestos exposure COVID positive 12/2021-mild Colonoscopy 10/2016 with a hyperplastic p olyp Surgical History Surgery Date(Month/Year) Radical [place] [address] Javan pardo for prostate cancer Bilateral inguinal hernia Appendectomy Left knee replacement 08/2021 Tonsillectomy
[2024-08-26 09:17] LABS: Prostate Specific Antigen < 0.10 ng/mL (<0.05-4.0)
== END 2024-08-26 07:37 | disposition home or self-care (01) ==
LOC: HO.LAB 07:36
PROVIDERS: PCP Internal Medicine; Visit Provider Urology
DX: C61 Malignant neoplasm of prostate (principal); Z12.5 Encounter for screening for malignant neoplasm of prostate
CPT/HCPCS: 36415; 84153

== ENCOUNTER 2024-08-27 09:33 | Outpatient (AMB) | payer MEDICARE, SELFPAY ==
--- NOTE | 2024-08-27 09:40 | MHC.OFFVIS ---
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 He is a patient of Dr. Eduardo. He is seen for following urologic conditions - prostate cancer - renal cyst - stress incontinence Accompanied by Stable PSA Stable renal cyst Discussed sling for stress incontinence Currently using 2-3 pads per day PSA remains well controlled. He will be following with Dr. Eduardo. Previously information provided regarding penile clamp Prostate cancer Initial therapy radical prostatectomy 2007 PSA 12/12 <0.1, 08/16 <0.1, 09/15 <0.1 Associated conditions erectile dysfunction and mild stress incontinence Previously recommended Kegel exercises Renal cyst They present for - left side 7 cm simple renal cyst The renal mass was diagnosed - , incidentally Imaging included - 01/10 renal ultrasound 7 cm renal cyst - 07/15 renal ultrasound 1.4 cm right renal cyst, 7 cm left renal cyst stable Prior treatment(s) included - , surveillance Current symptoms include hematuria No dysuria No fever No chills No Follow up imaging includes renal ultrasound Planned therapeutic plan - continue with renal surveillance [facility] Medical History TSH elevation COVID-19 virus infection Peripheral vascular disease Impacted cerumen of both ears Chronic cough Numbness of toes Left leg swelling Stress incontinence Medicare annual wellness visit, initial Low back pain Travel advice encounter Knee pain, left Fall Tick bite Right knee pain Right shoulder pain Left cataract Hip pain, left Dysphagia Urinary tract infection Peptic ulcer disease Vitamin D deficiency Pulmonary nodule Post herpetic neuralgia Asbestos exposure Diastasis recti History of prostate cancer Asthma GERD (gastroesophageal reflux disease) Hypercholesterolemia Surgical History History of total left knee replacement Hx of colonoscopy History of arthroplasty of left knee History of nephrolithiasis History of tonsillectomy History of inguinal hernia repair History of prostatectomy Family History Father Colon cancer Mother CVD (cardiovascular disease) Myocardial infarction Social History Housing: House Alcohol intake: never Patient Tobacco Use Status: Never used Tobacco Tobacco use type: Cigarette e-Cigarette/Vaping Use: Never Used Second Hand Smoke Exposure: No service: No Current occupational status: retired Cognitive needs: No Hearing needs: Yes Vision needs: Yes Review of Systems Const Denies chills and Denies fever(s) Card Reports no additional complaints and Denies syncope Resp Denies cough GI Denies abdominal pain and Denies heartburn Reports as per HPI and Denies change in libido Neuro Denies syncope Psych Denies change in libido Endo Denies change in libido Physical Exam Const General: cooperative, healthy appearing, comfortable and no acute distress Orientation/consciousness: patient oriented x3 HEENT Face and sinus: Yes normal facial exam Mouth: moist mucous membranes Neck Neck: Yes normal visual inspection, Yes full ROM and Yes trachea midline Chest Chest palpation & inspection: normal inspection of the chest Resp Effort & Inspection: normal respiratory effort, able to speak in complete sentences and no respiratory distress GI Inspection: Yes normal to inspection Back/Spine/Pelvis Cervical Spine: normal cervical lordosis Thoracic/Lumbar Spine: thoracic and lumbar spine normal to inspection Skin General skin exam: no rashes or lesions noted Neuro General: patient oriented x3, gait normal, tone normal and moves all extremities Extrem General: Yes normal to inspection and Yes capillary refill normal Assessment & Plan Assessment & Plan (1) Prostate cancer: Comment: October 2007 prostatectomy Code(s): C61 - Malignant neoplasm of prostate Category: Medical (2) Stress incontinence, male: Code(s): N39.3 - Stress incontinence (female) (male) Category: Medical Plan He will follow with Dr. Eduardo for PSA review Patient Instructions: This note is constructed using voice recognition software. While every effort has been made to ensure accuracy adjunct business instructor errors may have been included. Imaging studies, laboratory and physical exam results were discussed and reviewed in detail. No major barriers to patient understanding were identified. An opportunity to ask questions regarding the treatment plan was provided. All questions were answered. The patient expressed understanding and agreement with the above treatment plan. The patient is aware they should contact our office by phone for worsening of their current condition or the appearance of new urologic symptoms. Compliance is encouraged with any medications and followup testing that is ordered. It is a privilege to participate in the urologic care of your patient. If you have any questions or concerns regarding treatment for the above conditions, or other urologic issues, please do not hesitate to contact me. The office telephone contact is [phone]. Sincerely, Dr Erik Ramos MD, [facility] - Urology Compassionate Specialist Care for the Genitourinary System Coding Level of Care Code Est Pt Level 4 (24423) Complex EM visit Add On G2211 Diagnoses Prostate cancer C61 Stress incontinence, male N39.3
--- OUTSIDE RECORDS SUMMARY | 2024-08-27 10:49 | XMS_ITS | Patient Health Record ---
Author Organization [facility] Address [address] [place] [address] Care Team Providers Care Fire Support Specialist Name Role Phone Myles Eduardo MD Primary Care Provider Musa Bills [phone] Allergies Allergen (clinical drug ingredient) Drug/Non Drug Allergy documented on EMR Reaction Allergy Type Onset Date Status salt (uncoded) Unknown Allergy Activ e simvastatin Simvastatin in strong doses/heartburn Drug Allergy Active Reason For Referral No Information Medications Medication [...] Problem Status W/U Status Risk Notes Problem 595897461 Encounter for screening for malignant neoplasm of colon (Z12.11) Active confirmed Problem 348856673 History of adenomatous polyp of colon (Z86.010) Active confirmed Problem Screening for malignant neoplasm of rectum (493470478) Encounter for screening for malignant neoplasm of rectum (Z12.12) Active confirmed Problem 82401688 Preprocedural examination (Z01.818) Active confirmed Problem History of polyp of colon (563708627) History of colon polyps (Z86.010) Active confirmed Problem Diverticulosis of colon (500044781) Diverticulosis of colon (K57.30) Active confirmed Plan Of Treatment Future Test Test Name Order Date COLONOSCOPY 08/22/2016 COLONOSCOPY 01/18/2022 Insurance Providers Payer Name Payer Address Payer Phone Subscriber Number Group Number Insured Name Patient Relationship to Insured Coverage Start Date Coverage End Date MEDICARE OF [place] [address] [place] [id number] OW[employer] CRUZ Self - patient is the insured MEDEX ATTN CLAIMS [address] [place] [address] [id number] OW[employer] CRUZ Self - patient is the insured Medical (General) History Medical History History ICD Code Colonoscopy 03-20-2011--1 sma ll tubular adenoma removed; neg. colonoscopy [place] [address] Dumont GERD--EGD in 1996--gastritis, neg. H.pyl cj Prostate cancer--surgery as below Denies MD,DM,CVA,Lung disease,renal dise ase Negative cardiac cath before 2007 Pulmonary nodule Peptic ulcer disease in his 20's Hypercholesterolemia Asthma Asbestos exposure COVID positive 12/2021-mild Colonoscopy 10/2016 with a hyperplastic p olyp Surgical History Surgery Date(Month/Year) Radical [place] [address] Javan pardo for prostate cancer Bilateral inguinal hernia Appendectomy Left knee replacement 08/2021 Tonsillectomy
== END 2024-08-27 10:15 | disposition home or self-care (01) ==
PROVIDERS: PCP Internal Medicine; Visit Provider Urology
DX: C61 Malignant neoplasm of prostate (principal); N39.3 Stress incontinence (female) (male)
CPT/HCPCS: 99214; G2211

== ENCOUNTER → 2024-08-27 09:33 | Outpatient (BNVA) | payer MEDICARE, SELFPAY | PROVIDERS: PCP Internal Medicine; Visit Provider Urology | DX: C61 Malignant neoplasm of prostate (principal); N39.3 Stress incontinence (female) (male); N28.1 Cyst of kidney, acquired | CPT/HCPCS: 99212 ==

== ENCOUNTER 2024-10-16 08:00 | Outpatient (RCR) | payer MEDICARE, SELFPAY | END 2024-11-18 11:23 | disposition home or self-care (01) | LOC: HO.PTCHIC 08:00 | PROVIDERS: PCP Internal Medicine; Visit Provider Physician Assistant | DX: M54.50 Low back pain, unspecified (principal) | CPT/HCPCS: 97110; 97161 ==

== ENCOUNTER 2024-10-26 07:59 | Outpatient (AMB) | payer MEDICARE, SELFPAY ==
--- OUTSIDE RECORDS SUMMARY | 2024-10-26 08:03 | XMS_ITS | Patient Health Record ---
Author Organization [facility] Address [address] [place] [address] Care Team Providers Care Sticker Machine Operator Name Role Phone Myles Eduardo MD Primary Care Provider Musa Bills [phone] Allergies Allergen (clinical drug ingredient) Drug/Non Drug [...] Problem Status W/U Status Risk Notes Problem 635517809 Encounter for screening for malignant neoplasm of colon (Z12.11) Active confirmed Problem 325388276 History of adenomatous polyp of colon (Z86.010) Active confirmed Problem Screening for malignant neoplasm of rectum (266089288) Encounter for screening for malignant neoplasm of rectum (Z12.12) Active confirmed Problem 02563248 Preprocedural examination (Z01.818) Active confirmed Problem History of colon polyps (Z86.010) Active confirmed Problem Diverticulosis of colon (860246019) Diverticulosis of colon (K57.30) Active confirmed Plan Of Treatment Future Test Test Name Order Date COLONOSCOPY 08/22/2016 COLONOSCOPY 01/18/2022 Insurance Providers Payer Name Payer Address Payer Phone Subscriber Number Group Number Insured Name Patient Relationship to Insured Coverage Start Date Coverage End Date MEDICARE OF [place] [address] [place] [id number] [phone] [id number] OWEN CRUZ Self - patient is the insured MEDEX ATTN CLAIMS [address] [place] [address] [id number] OWEN CRUZ Self - patient is the insured Medical (General) History Medical History History ICD Code Colonoscopy 03-20-2011--1 sma ll tubular adenoma removed; neg. colon[place] [address] Dumont GERD--EGD in 1996--gastritis, neg. H.pyl cj Prostate cancer--surgery as below Denies [place],DM,CVA,Lung disease,renal dise ase Negative cardiac cath before 2007 Pulmonary nodule Peptic ulcer disease in his 20's Hypercholesterolemia Asthma Asbestos exposure COVID positive 12/2021-mild Colonoscopy 10/2016 with a hyperplastic p olyp Surgical History Surgery Date(Month/Year) Radical [place] [address] Javan pardo for prostate cancer Bilateral inguinal hernia Appendectomy Left knee replacement 08/2021 Tonsillectomy
--- NOTE | 2024-10-26 08:09 | MHC.OFFWIV ---
Intake Vital Signs 10/26/24 08:13 Weight 180 lb BP 128/80 Blood Pressure Location Rt brachial Position Sitting Pulse 66 Pulse Source Pulse Oximeter Pulse Oximetry (%) 98 Oxygen Delivery Method Room Air Intake Visit Reasons: EP Rash on head Intake Note: Patient here for rash on head that he noticed last night. Patient Tobacco Use Status: Never used Tobacco Allergies SALT Adverse Reaction (Unknown, Uncoded 10/26/24 08:13) Unknown SIMVASTATIN Adverse Reaction (Unknown, Uncoded 10/26/24 08:13) heart burn from strong dosage Do you need a note to return to daycare/school/sports/work: No HPI HPI Comments History of Present Illness Details 74 y/o Male patient who presents to the walk in clinic with c/o Rash on his scalp. Reports noticing the rash last night. Denies using any OTC remedies. [facility] Medical History (Updated 10/26/24 @ 08:26 by Callie Elizondo NP) Seborrheic dermatitis TSH elevation COVID-19 virus infection Peripheral vascular disease Impacted cerumen of both ears Chronic cough Numbness of toes Left leg swelling Stress incontinence Medicare annual wellness visit, initial Low back pain Travel advice encounter Knee pain, left Fall Tick bite Right knee pain Right shoulder pain Left cataract Hip pain, left Dysphagia Urinary tract infection Peptic ulcer disease Vitamin D deficiency Pulmonary nodule Post herpetic neuralgia Asbestos exposure Diastasis recti History of prostate cancer Asthma GERD (gastroesophageal reflux disease) Hypercholesterolemia Surgical History History of total left knee replacement Hx of colonoscopy History of arthroplasty of left knee History of nephrolithiasis History of tonsillectomy History of inguinal hernia repair History of prostatectomy Family History Father Colon cancer Mother CVD (cardiovascular disease) Myocardial infarction Social History Housing: House Alcohol intake: never Patient Tobacco Use Status: Never used Tobacco Tobacco use type: Cigarette e-Cigarette/Vaping Use: Never Used Second Hand Smoke Exposure: No service: No Current occupational status: retired Cognitive needs: No Hearing needs: Yes Vision needs: Yes Review of Systems Const All systems reviewed & are unremarkable except as noted in HPI and below Physical Exam Vital Signs: Last Vital Signs Pulse 66 10/26/24 08:13 BP 128/80 10/26/24 08:13 Pulse Ox 98 10/26/24 08:13 Oxygen Delivery Method Room Air 10/26/24 08:13 Const General: no acute distress Nutritional Appearance: well nourished Orientation/consciousness: patient oriented x3 Skin Other: Dry flaky skin noticed covering the scalp. General skin exam: dry skin Hair: male pattern alopecia Neuro General: patient oriented x3 Assessment & Plan Assessment & Plan (1) Seborrheic dermatitis: Code(s): L21.9 - Seborrheic dermatitis, unspecified Plan: Advised to Use Head & Shoulder or Selsun Blue Shampoo Twice daily. Moisturize scalp daily Coding Level of Care Code Est Pt Level 4 (97571) Diagnoses Seborrheic dermatitis L21.9 Time Spent (min) 20
[2024-10-26 08:13] VITALS: BP 128/80; PULSE 66; O2SAT 98
== END 2024-10-26 08:36 | disposition home or self-care (01) ==
PROVIDERS: PCP Internal Medicine; Visit Provider Nurse Practitioner Family
DX: L21.9 Seborrheic dermatitis, unspecified (principal)

== ENCOUNTER → 2024-10-26 07:59 | Outpatient (BNVA) | payer MEDICARE, SELFPAY | PROVIDERS: PCP Internal Medicine; Visit Provider Nurse Practitioner Family | DX: L21.9 Seborrheic dermatitis, unspecified (principal) | CPT/HCPCS: 99212 ==

== ENCOUNTER 2025-02-05 06:21 | Outpatient (REF) | payer MEDICARE, SELFPAY ==
[2025-02-05 06:42] LABS: MANUAL DIFF FLAG NO
[2025-02-05 07:40] LABS: Hematocrit 43.9 % (42.0-52.0); Hemoglobin 15.0 g/dl (14.0-18.0); Imm Gran Abs Auto 0.02 X10*3/uL (0.00-0.03); Imm Gran Pct Auto 0.3 % (0.0-0.4); Lymphocytes Absolute Auto 2.5 X10*3/uL (1.2-4.9); Mean Corpuscular HGB Conc 34.2 g/dl (31.0-36.0); Mean Corpuscular Hemoglobin 31.1 pg (27.0-33.0); Mean Corpuscular Volume 91.1 fL (80.0-98.0); NRBC Abs Auto 0.000 X10*3/uL (0.0-0.012); NRBC Pct Auto 0.0 /100WBC (0.0-0.2); Platelet Count 184 X10*3/uL (160-400); Red Blood Count 4.82 X10*6/uL (4.60-5.80); White Blood Count 5.8 X10*3/uL (4.8-10.8)
[2025-02-05 07:44] LABS: Hemoglobin A1C 140.5106 umol/L; Total Hemoglobin (HGBA1C) 3925.1750 umol/L
[2025-02-05 08:21] LABS: Alanine Aminotransferase 15 U/L (0-40); Albumin Level 4.1 g/dL (3.5-5.0); Alkaline Phosphatase 68 U/L (39-117); Anion Gap 10 (12-20); Aspartate Amino Transferase 20 U/L (5-37); Blood Urea Nitrogen 16 mg/dL (9-16); Calcium 9.0 mg/dL (8.4-10.2); Carbon Dioxide 25 mmol/L (22-29); Chloride 111 mmol/L (96-108); Cholesterol 222 mg/dL (<200); Estimated Glomerular Filt Rate > 60; HDL Cholesterol 33 mg/dL (>40); Potassium 4.3 mmol/L (3.3-5.1); Sodium 142 mmol/L (135-145); Total Protein 6.7 g/dL (6.5-8.0); Triglycerides 109 mg/dL (<150)
[2025-02-05 08:39] LABS: Free T4 (Free Thyroxine) 0.94 ng/dL (0.71-1.85); Thyroid Stimulating Hormone 3.25 uIU/mL (0.32-4.0)
[2025-02-05 08:41] LABS: Folate 11.0 ng/mL (> or = 4.0); Vitamin B12 357 pg/mL (200-900)
== END 2025-02-05 06:22 | disposition home or self-care (01) ==
LOC: HO.LAB 06:21
PROVIDERS: PCP Internal Medicine; Visit Provider Internal Medicine
DX: Z12.5 Encounter for screening for malignant neoplasm of prostate (principal); Z13.1 Encounter for screening for diabetes mellitus; E78.00 Pure hypercholesterolemia, unspecified
CPT/HCPCS: 36415; 80053; 80061; 82607; 82746; 83036; 84153; 84439; 84443; 85025

== ENCOUNTER 2025-02-10 08:20 | Outpatient (AMB) | payer MEDICARE, SELFPAY ==
--- NOTE | 2025-02-10 08:23 | A.OFFVIS_ITS ---
Intake Vital Signs 02/10/25 08:24 Height 5 ft 8 in Weight 175 lb 8 oz BMI 26.7 BP 136/68 Blood Pressure Location Lt brachial Position Sitting Respiration 16 Pulse 66 Pulse Source Pulse Oximeter Temp 97.1 F Temp Source Temporal Artery Scan Pulse Oximetry (%) 98 Oxygen Delivery Method Room Air Intake Visit Reasons: swv Accompanied by: Spouse Allergies SALT Adverse Reaction (Unknown, Uncoded 02/10/25 08:26) Unknown SIMVASTATIN Adverse Reaction (Unknown, Uncoded 02/10/25 08:26) heart burn from strong dosage Medication List - Last Reconciled 02/10/25 by Myles Eduardo MD blood pressure monitor (Blood Pressure Kit) As directed loratadine (Claritin) 10 mg PO DAILY meloxicam 7.5 mg PO DAILY omeprazole 40 mg PO DAILY HPI swv HPI Details [facility], Urology Dr. Ramos pulmonary Dr. Ambriz [facility] Medical History Seborrheic dermatitis TSH elevation COVID-19 virus infection Peripheral vascular disease Impacted cerumen of both ears Chronic cough Numbness of toes Left leg swelling Stress incontinence Medicare annual wellness visit, initial Low back pain Travel advice encounter Knee pain, left Fall Tick bite Right knee pain Right shoulder pain Left cataract Hip pain, left Dysphagia Urinary tract infection Peptic ulcer disease Vitamin D deficiency Pulmonary nodule Post herpetic neuralgia Asbestos exposure Diastasis recti History of prostate cancer Asthma GERD (gastroesophageal reflux disease) Hypercholesterolemia Surgical History History of total left knee replacement Hx of colonoscopy History of arthroplasty of left knee History of nephrolithiasis History of tonsillectomy History of inguinal hernia repair History of prostatectomy Family History Father Colon cancer Mother CVD (cardiovascular disease) Myocardial infarction Social History Housing: House Alcohol intake: never Patient Tobacco Use Status: Never used Tobacco Tobacco use type: Cigarette e-Cigarette/Vaping Use: Never Used Second Hand Smoke Exposure: No service: No Current occupational status: retired Cognitive needs: No Hearing needs: Yes Vision needs: Yes Questionnaire Medicare Wellness Checkup [age] What gender do you identify with?: male During the past 4 weeks, how much have you been bothered by emotional problems such as feeling anxious, depressed, irritable, sad or downhearted, and blue?: not at all During the past 4 weeks, has your physical & emotional health limited your social activities with family, friends, neighbors, or groups?: not at all During the past 4 weeks, how much bodily pain have you generally had?: moderate pain During the past 4 weeks, was someone available to help you if you needed & wanted help?: yes, as much as I wanted During the past 4 weeks, what was the hardest physical activity you could do for at least 2 minutes?: moderate Can you get to places out of walking distance without help? (For eg., can you travel alone on buses, taxis or drive your car?): Yes Can you go shopping for groceries or clothes without someone's help?: Yes Can you prepare your own meals?: Yes Can you do your housework without help?: Yes Because of any health problems, do you need the help of another person with your personal care needs such as eating, bathing, dressing or getting around the house?: No Can you handle your own money without help?: Yes During the past 4 weeks, how would you rate your health in general?: fair During the past 4 weeks how have things been going for you?: pretty well Are you having difficulties driving your car?: no Do you always fasten your seat belt when you are in a car?: yes, usually During past 4 weeks, have you been bothered by the following: never: Falling or dizzy when standing up, Sexual problems?, Trouble eating well?, Problems using the telephone? and Tiredness or fatigue? and sometimes: Teeth or denture problems? Have you fallen 2 or more times in the past year?: No Are you afraid of falling?: No Are you a smoker?: no During the past 4 weeks, how many drinks of wine, beer, or other alcoholic beverages did you have?: no alcohol at all Do you exercise for about 20 minutes 3 or more times a week?: yes, all the time Have you been given information to help with the following?: yes: Hazards in your house that might hurt you? and yes: Keeping track of your medications? How often do you have trouble taking medicines the way you have been told to take them?: I always take medicine as prescribed How confident are you that you can control & manage most of your health problems?: very confident What is your race?: White PHQ-9 Over the last 2 weeks, how often have you been bothered by any of the following problems? 1. Little interest or pleasure in doing things: not at all 2. Feeling down, depressed, or hopeless: not at all 3. Trouble falling or staying asleep, or sleeping too much: not at all 4. Feeling tired or having little energy: not at all 5. Poor appetite or overeating: not at all 6. Feeling bad about yourself - or that you are a failure or have let yourself or your family down: not at all 7. Trouble concentrating on things, such as reading the newspaper or watching television: not at all 8. Moving or speaking so slowly that other people could have noticed. Or the opposite - being so fidgety or restless that you have been moving around a lot more than usual: not at all 9. Thoughts that you would be better off or of hurting yourself in some way: not at all Total score: 0 Depression Screening Interpretation: Negative Depression Screening Done: Yes 36858 - PHQ-9 Billing: Yes Source: Developed by Drs. Musa Edwards, Hailey Montoya, Nicolás Rodas and colleagues, with an educational denise from [employer]. Review of Systems Const Denies poor appetite and Denies weakness Eyes Denies no additional complaints ENT Reports Normal hearing present, Denies dizziness, Denies nasal congestion, Denies tinnitus and Denies sore throat Card Denies chest pain, Denies syncope, Denies rapid heart rate and Denies dyspnea Resp Denies cough and Denies dyspnea GI Denies change in stool character, Reports constipation, Denies diarrhea, Denies nausea and Denies vomiting Denies dysuria and Denies urinary frequency Neuro Reports Normal hearing present, Denies confusion, Denies dizziness, Denies syncope and Denies weakness Psych Denies confusion Physical Exam Vital Signs: Last Vital Signs Temp 97.1 F 02/10/25 08:24 Pulse 66 02/10/25 08:24 Resp 16 02/10/25 08:24 BP 136/68 02/10/25 08:24 Pulse Ox 98 02/10/25 08:24 Oxygen Delivery Method Room Air 02/10/25 08:24 BMI result Body Mass Index 26.7 Const General: No confusion Orientation/consciousness: No confusion HEENT Head: Yes normocephalic Ears: external ears normal and TM's normal bilaterally Face and sinus: Yes normal facial exam Mouth: moist mucous membranes Throat: Yes tonsils normal Eyes Conjunctivae: conjunctivae normal Pupils: Equal, round and reactive pupils present and Pupil accommodation reflex normal Direct Ophthalmoscopy: normal light reflex Neck Neck: No lymphadenopathy Thyroid: Thyroid normal Chest Chest palpation & inspection: normal inspection of the chest Resp Effort & Inspection: normal respiratory effort and no audible wheezes Auscultation: clear to auscultation bilaterally, no crackles, no wheezes and lung sounds not diminished Cardio Rate: regular rate Rhythm: regular rhythm Peripheral pulses: radial pulses present and dorsalis pedis present GI Other: declined rectal Palpation (GI): no masses Auscultation: normal bowel sounds and normoactive bowel sounds Rectal Exam - Male: Yes deferred Male General Exam: Yes normal external exam Skin General skin exam: no rashes or lesions noted Rashes: no rashes Neuro General: No confusion Cranial nerves: Yes Equal, round and reactive pupils present and Yes Normal hearing present Cognition (Neuro): normal cognition Gait exam (Neuro): Normal gait present Motor exam (neuro): 5/5 motor strength present throughout Deep tendon reflexes (DTR's): Right brachioradialis reflex intensity grade: 2+, Left brachioradialis reflex intensity grade: 2+, Right patellar reflex intensity grade: 2+ and Left patellar reflex intensity grade: 2+ Extrem General: No edema Assessment & Plan Assessment & Plan (1) Medicare annual wellness visit, subsequent: Code(s): Z00.00 - Encounter for general adult medical examination without abnormal findings Plan: Patient is advised to eat healthy, keep well hydrated, keep active and have adequate sleep. (2) Asthma: Code(s): J45.909 - Unspecified asthma, uncomplicated Qualifiers: Asthma complication type: uncomplicated Asthma persistence: intermittent Asthma severity: mild Qualified Code(s): J45.20 - Mild intermittent asthma, uncomplicated Plan: Stable (3) Lumbar degenerative disc disease: Comment: MRI 2022 Code(s): M51.36 - Other intervertebral disc degeneration, lumbar region Plan: Patient has met with the [facility] has recommended physical therapy (4) Prostate cancer: Comment: October 2007 prostatectomy Code(s): C61 - Malignant neoplasm of prostate Plan: Continue to follow-up with urology and under surveillance PSA remains unde tectable (5) GERD (gastroesophageal reflux disease): Code(s): K21.9 - Gastro-esophageal reflux disease without esophagitis Qualifiers: Esophagitis presence: without esophagitis Qualified Code(s): K21.9 - Gastro-esophageal reflux disease without esophagitis Plan: Avoid the foods that causes that usually spicy foods, tomato products, juices, coffee, soda and foods that your sensitive to. After eating do not lie down, allow 3-4 hours before in lie down. And keep the head of bed above 30 degrees to avoid the acid from going up. (6) Tubular adenoma of colon: Comment: 2021 Code(s): D12.6 - Benign neoplasm of colon, unspecified Plan: Patient is up-to-date with colonoscopy 2021 (7) Hypercholesterolemia: Code(s): E78.00 - Pure hypercholesterolemia, unspecified Plan: Avoid fried foods, chicken skin, eggs, butter margarine, pastries and meat. Be it pork or beef they have a lot of cholesterol LDL goal of less than 130 and triglyceride of less than 150 (8) Generalized anxiety disorder: Code(s): F41.1 - Generalized anxiety disorder Plan History of Present Illness The patient is a 75-year-old male presenting for an annual wellness visit. The patient has a history of Gastroesophageal Reflux Disease (GERD), managed with regular omeprazole use, effectively controlling symptoms when taken consistently. Hypercholesterolemia is noted, with an LDL level of 168 mg/dL, exceeding the target of less than 130 mg/dL. Past issues with simvastatin have led to the absence of current cholesterol-lowering medication. The patient has a history of asthma, though details were not discussed in this visit. A history of tubular adenoma of the colon is noted, with the last colonoscopy in 2021 showing no new findings. Generalized anxiety disorder is part of the patient's history, without further elaboration during this visit. Bilateral knee osteoarthritis limits physical activity, with recommendations for muscle-strengthening exercises to support joints. The patient has a history of prostate cancer, post-prostatectomy in 2007, with undetectable PSA levels recently. Lumbar degenerative disc disease results in persistent low back pain, managed with meloxicam and home physical therapy exercises. Seborrheic dermatitis was diagnosed in October, treated with sesame oil shampoo. Stress incontinence was discussed during a urology follow-up. A renal cyst is under surveillance. Constipation is managed with occasional laxative use. Hearing loss is present, with hearing aids used but reportedly ineffective in crowded settings. Diastasis recti was identified during the physical examination. Health Maintenance - Colonoscopy up to date as of 2021, no new findings. - PSA levels remain undetectable, indicating stable prostate cancer status post- prostatectomy. - Cholesterol management with a target LDL of less than 130 mg/dL, current level at 168 mg/dL. - Regular use of omeprazole for GERD management. - Physical therapy exercises recommended for lumbar degenerative disc disease and knee osteoarthritis. - Hearing aids used for hearing loss, though effectiveness is limited in crowded environments. Social History - The patient does not consume alcohol or use tobacco products. - The patient reports limited physical activity due to knee osteoarthritis and lumbar degenerative disc disease. - The patient uses hearing aids but finds them ineffective in crowded environments. Review of Systems - General: Denies fever, night sweats, dizziness, or syncope. - Cardiovascular: Denies chest pain or discomfort. - Respiratory: Denies shortness of breath or wheezing. - Gastrointestinal: Reports constipation, denies nausea or vomiting. - Genitourinary: Reports stress incontinence, denies hematuria. - Neurological: Denies headaches or balance issues. - Dermatological: Reports seborrheic dermatitis. - Musculoskeletal: Reports persistent low back pain. - Ophthalmological: Reports hearing loss, uses hearing aids. Physical Exam General: Cooperative, healthy appearing, comfortable, no acute distress and well developed Orientation: Patient oriented x3 Limitations: No limitations Head: Normal to inspection Ears: Hearing aids present, but patient reports they are not effective Nose: Normal external nose present Face and sinus: Normal facial exam Eyes: Appearance normal, both eyes and all related structures Neck: Normal visual inspection and Yes full ROM Respiratory: Normal respiratory effort and able to speak in complete sentences. Clear to auscultation bilaterally Cardiovascular: Regular rate and rhythm. Normal S1 and S2 GI: Normal to inspection. Soft to palpation and nontender Skin: No rashes or lesions noted Neuro: Patient oriented x3 Extremities: Normal to inspection, no edema noted Results - Labs: Normal blood count, no anemia, normal electrolytes, normal renal function, blood sugar 91 mg/dL, normal hemoglobin A1c, liver function normal, LDL cholesterol 168 mg/dL, undetectable PSA, normal B12, folic acid, and thyroid levels. Plan The patient will continue regular use of omeprazole for GERD management, as it effectively controls symptoms when taken consistently. Lifestyle modifications, including dietary changes and increased physical activity, are recommended to help lower LDL levels, as the patient is not currently on cholesterol-lowering medication due to past issues with simvastatin. The patient is advised to continue physical therapy exercises at home to manage lumbar degenerative disc disease and bilateral knee osteoarthritis, aiming to strengthen muscles and support joints. Meloxicam is prescribed for pain management, with instructions to take it with food to minimize gastrointestinal side effects. For seborrheic dermatitis, the patient will continue using sesame oil shampoo as previously prescribed. Stress incontinence will be monitored, with no immediate changes to current management. The renal cyst will remain under surveillance, with no immediate intervention required. Constipation management includes the use of laxatives as needed, with consideration of dietary fiber supplementation if necessary. Hearing aids will continue to be used for hearing loss, although their effectiveness in crowded environments is limited. The patient is encouraged to maintain regular follow-ups with audiology to assess and adjust hearing aid settings as needed. Patient was informed and verbally consented to the use of an ambient scribe for clinic note documentation during this visit. Discussion Notes During the visit, we discussed the management of GERD with regular omeprazole use, which the patient finds effective. We also addressed hypercholesterolemia, recommending lifestyle modifications to lower LDL levels, given the patient's history with simvastatin. Physical therapy exercises were emphasized for managing lumbar degenerative disc disease and knee osteoarthritis, with meloxicam prescribed for pain relief. The patient will continue using sesame oil shampoo for seborrheic dermatitis, and stress incontinence will be monitored without immediate changes. We agreed to keep the renal cyst under surveillance and manage constipation with laxatives as needed. Hearing aids will be used for hearing loss, and the patient is encouraged to f ollow up with audiology for adjustments. Patient Instructions - Continue taking omeprazole regularly for GERD management. - Implement dietary changes and increase physical activity to help lower cho lesterol levels. - Perform physical therapy exercises at home to support joint health and manage back pain. - Use meloxicam for pain management as needed, taking it with food to prevent stomach upset. - Continue using sesame oil shampoo for seborrheic dermatitis. - Monitor stress incontinence and report any changes. - Keep renal cyst under surveillance, no immediate action needed. - Use laxatives as needed for constipation, consider dietary fiber supplements. - Use hearing aids and follow up with audiology for adjustments. Medications: Refilled omeprazole 40 mg PO DAILY 90 caps 3RF K21.9 - Gastro-esophageal reflux disease without esophagitis Quality Reporting (2019) Depression/Bipolar (159/160/161/177) PHQ-9: Total score: 0 Coding Level of Care Code Medicare Subsequent (G0439) Diagnoses Medicare annual wellness visit, subsequent Z00.00 Mild intermittent asthma without complication J45.20 Asthma complication type: uncomplicated Asthma persistence: intermittent Asthma severity: mild Lumbar degenerative disc disease M51.36 Prostate cancer C61 Gastroesophageal reflux disease without esophagitis K21.9 Esophagitis presence: without esophagitis Tubular adenoma of colon D12.6 Hypercholesterolemia E78.00 Generalized anxiety disorder F41.1 Additional Codes PHQ-9 - 36003 - PHQ-9 Billing: Yes ([id number])
[2025-02-10 08:24] VITALS: BP 136/68; PULSE 66; RESP 16; TEMP 36.2; O2SAT 98; BMI 26.7
--- OUTSIDE RECORDS SUMMARY | 2025-02-10 08:58 | XMS_ITS | Patient Health Record ---
Author Organization [facility] Address [address] [place] [address] Care Team Providers Care Modeling Manager Name Role Phone Myles Eduardo MD Primary Care Provider Musa Bills [phone] Allergies Allergen (clinical drug ingredient) Drug/Non Drug [...] Problem Status W/U Status Risk Notes Problem [id number] Encounter for screening for malignant neoplasm of colon (Z12.11) Active confirmed Problem [id number] History of adenomatous polyp of colon (Z86.010) Active confirmed Problem Screening for malignant neoplasm of rectum (803813487) Encounter for screening for malignant neoplasm of rectum (Z12.12) Active confirmed Problem 52432188 Preprocedural examination (Z01.818) Active confirmed Problem History of polyp of colon (situation) (607249776) History of colon polyps (Z86.010) Active confirmed Problem Diverticulosis o f colon (K57.30) Active confirmed Plan Of Treatment Future Test Test Name Order Date COLONOSCOPY 08/22/2016 COLONOSCOPY 01/18/2022 Insurance Providers Payer Name Payer Address Payer Phone Subscriber Number Group Number Insured Name Patient Relationship to Insured Coverage Start Date Coverage End Date MEDICARE OF [place] [address] [place] [id number] OWEN CRUZ Self - patient is the insured [employer] ATT[employer] CLAIMS [address] [place] [address] [id number] OWEN CRUZ Self - patient is the insured Medical (General) History Medical History History ICD Code Colonoscopy 03-20-2011--1 sma ll tubular adenoma removed; neg. colonoscopy [place] [address] Julia KNUTSON--EGD in 1996--gastritis, neg. H.pyl cj Prostate cancer--surgery as below Denies AR,DM,CVA,Lung disease,renal dise ase Negative cardiac cath before 2007 Pulmonary nodule Peptic ulcer disease in his 20's Hypercholesterolemia Asthma Asbestos exposure COVID positive 12/2021-mild Colonoscopy 10/2016 with a hyperplastic p olyp Surgical History Surgery Date(Month/Year) Radical prostate[place] [address] Javan pardo for prostate cancer Bilateral inguinal hernia Appendectomy Left knee replacement 08/2021 Tonsillectomy
== END 2025-02-10 09:25 | disposition home or self-care (01) ==
LOC: HO.HMCH 08:21
PROVIDERS: PCP Internal Medicine; Visit Provider Internal Medicine
DX: Z00.00 Encounter for general adult medical examination without abnormal findings (principal); C61 Malignant neoplasm of prostate; J45.20 Mild intermittent asthma, uncomplicated; M51.369 Other intervertebral disc degeneration, lumbar region without mention of lumbar back pain or lower extremity pain; K21.9 Gastro-esophageal reflux disease without esophagitis; D12.6 Benign neoplasm of colon, unspecified; E78.00 Pure hypercholesterolemia, unspecified; F41.1 Generalized anxiety disorder

== ENCOUNTER → 2025-02-10 08:20 | Outpatient (BNVA) | payer MEDICARE, SELFPAY | PROVIDERS: PCP Internal Medicine; Visit Provider Internal Medicine | DX: Z00.00 Encounter for general adult medical examination without abnormal findings (principal); J45.20 Mild intermittent asthma, uncomplicated; M51.369 Other intervertebral disc degeneration, lumbar region without mention of lumbar back pain or lower extremity pain; K21.9 Gastro-esophageal reflux disease without esophagitis; C61 Malignant neoplasm of prostate; D12.6 Benign neoplasm of colon, unspecified; E78.00 Pure hypercholesterolemia, unspecified; F41.1 Generalized anxiety disorder | CPT/HCPCS: 96127 ==

== ENCOUNTER 2025-03-10 13:54 | Outpatient (AMB) | payer MEDICARE, SELFPAY ==
[2025-03-10 13:59] VITALS: BP 128/72; PULSE 68; RESP 18; TEMP 36.2; O2SAT 95; BMI 26.5
--- NOTE | 2025-03-10 13:59 | A.OFFPC_ITS ---
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 Pt Required: No Accompanied by: Self / Same As Patient Allergies SALT Adverse Reaction (Unknown, Uncoded 03/10/25 14:09) Unknown SIMVASTATIN Adverse Reaction (Unknown, Uncoded 03/10/25 14:09) heart burn from strong dosage Medication List - Last Reconciled 03/10/25 by ENRIQUE Wen blood pressure monitor (Blood Pressure Kit) As directed loratadine (Claritin) 10 mg PO DAILY meloxicam 7.5 mg PO DAILY omeprazole 40 mg PO DAILY Tobacco use date assessed: 03/10/25 Fall risk assessment: No Falls in past year Last assessed Fall Risk: 03/10/25 Dental Screening Dental Screen Date: 03/10/25 Did you have a dental visit in the last 12 months?: Yes Did you have a dental problem in the last 6 months where you did not have access to dental care?: No Was dental information given to patient?: Patient has dentist HPI ear cleaning HPI Details The patient is a 75-year-old male presenting with impacted cerumen requiring ear cleaning. The patient reported that the cerumen in his ears has been problematic, with one ear being particularly affected. He has been using Debrox drops for a few days to soften the wax, which has been blocked for a while. REPLACED BY [facility] Medical History (Updated 03/10/25 @ 14:55 by ENRIQUE Wen) Impacted cerumen of both ears Seborrheic dermatitis TSH elevation COVID-19 virus infection Peripheral vascular disease Chronic cough Numbness of toes Left leg swelling Stress incontinence Medicare annual wellness visit, initial Low back pain Travel advice encounter Knee pain, left Fall Tick bite Right knee pain Right shoulder pain Left cataract Hip pain, left Dysphagia Urinary tract infection Peptic ulcer disease Vitamin D deficiency Pulmonary nodule Post herpetic neuralgia Asbestos exposure Diastasis recti History of prostate cancer Asthma GERD (gastroesophageal reflux disease) Hypercholesterolemia Surgical History History of total left knee replacement Hx of colonoscopy History of arthroplasty of left knee History of nephrolithiasis History of tonsillectomy History of inguinal hernia repair History of prostatectomy Family History Father Colon cancer Mother CVD (cardiovascular disease) Myocardial infarction Social History Housing: House Alcohol intake: never Patient Tobacco Use Status: Never used Tobacco Tobacco use type: Cigarette e-Cigarette/Vaping Use: Never Used Second Hand Smoke Exposure: No service: No Current occupational status: retired Cognitive needs: No Hearing needs: Yes Vision needs: Yes Questionnaire PHQ-9 Over the last 2 weeks, how often have you been bothered by any of the following problems? 1. Little interest or pleasure in doing things: not at all 2. Feeling down, depressed, or hopeless: not at all 3. Trouble falling or staying asleep, or sleeping too much: not at all 4. Feeling tired or having little energy: not at all Source: Developed by Drs. Musa Edwards, Hailey Montoya, Nicolás Rodas and colleagues, with an educational denise from [employer]. Thrive Questionnaire Date Thrive assessed: 03/10/25 I am a: Patient What is your living situation today?: I have a steady place to live THRIVE Score: 0 AUDIT C Alcohol Use Questionnaire (AUDIT-C) 1. How often do you have a drink containing alcohol?: Never 3. How often do you have six or more drinks on one occasion?: Never Total Score: 0 DEVON-7 AMB Questionnaire DEVON-7 Date DEVON - 7 assessed: 07/28/24 Feeling nervous, anxious, or on edge: 0 = Not at all Not being able to stop or control worryin = Not at all Worrying too much about different things: 0 = Not at all Trouble relaxin = Not at all Being so restless that it is hard to sit still: 0 = Not at all Becoming easily annoyed or irritable: 0 = Not at all Feeling afraid as if something awful might happen: 0 = Not at all Total DEVON-7 score (0-4 normal; 5-9 mild; 10-14 moderate; 15-21 severe): 0 Source: Developed by Drs. Musa Edwards, Hailey Montoya, Nicolás Rodas and colleagues, with an educational denise from [employer]. Review of Systems Const Denies body aches, Denies chills, Denies fever(s), Denies headache(s) and Denies poor appetite Eyes Reports no additional complaints ENT Denies dysphagia, Denies dizziness, Denies headache(s), Reports hearing loss (associated with cerumen impaction) and Denies odynophagia Card Denies chest pain, Denies syncope, Denies edema, Denies irregular heart rhythm, Denies lightheadedness and Denies dyspnea Resp Denies cough and Denies dyspnea GI Denies abdominal pain, Denies constipation, Denies dysphagia, Denies diarrhea, Denies nausea, Denies odynophagia and Denies vomiting Reports no additional complaints Musc Reports no additional complaints and Denies abnormal gait Skin/Breast Reports system reviewed and no additional complaints, except as documented Neuro Denies abnormal gait, Denies dizziness, Denies syncope and Denies headache(s) Psych Reports no additional complaints Physical exam (Primary Care) Vital Signs: Last Vital Signs Temp 97.1 F 03/10/25 13:59 Pulse 68 03/10/25 13:59 Resp 18 03/10/25 13:59 BP 128/72 03/10/25 13:59 Pulse Ox 95 03/10/25 13:59 Oxygen Delivery Method Room Air 03/10/25 13:59 BMI result Body Mass Index 26.5 Tobacco/Smoking Status: Tobacco use Status Tobacco use date assessed 03/10/25 03/10/25 14:02 Patient Tobacco Use Status Never used Tobacco 03/10/25 14:02 Tobacco use type Cigarette 03/10/25 14:02 e-Cigarette/Vaping Use Never Used 03/10/25 14:02 Thrive Assessment: Date of Thrive Assessment Date Thrive assessed 03/10/25 03/10/25 14:02 Const General: cooperative, healthy appearing, comfortable and no acute distress Orientation/consciousness: patient oriented x3 HENMT Head: Yes normocephalic Ears: Abnormal EAC present cerumen impaction bilateral General nose exam: Normal external nose present Eyes General: appearance normal, both eyes and all related structures Conjunctivae: conjunctivae normal Neck Neck: Yes full ROM and Yes no lymphadenopathy Resp Effort & Inspection: normal respiratory effort Auscultation: clear to auscultation bilaterally, no crackles, no rales, no rhonchi and no wheezes Cardio Rate: regular rate Rhythm: regular rhythm Skin General skin exam: no rashes or lesions noted Neuro General: patient oriented x3 Gait exam (Neuro): Normal gait present Extrem General: Yes normal to inspection, Yes full ROM and No edema Psych Affect: normal affect Attitude: cooperative Insight: Good insight present (Psych) Judgement: Good judgement present (Psych) Coding Level of Care Code Procedure Only Diagnoses Impacted cerumen of both ears H61.23 Time Spent (min) 26 Assessment & Plan Assessment & Plan (1) Impacted cerumen of both ears: Code(s): H61.23 - Impacted cerumen, bilateral Category: Medical Plan: The patient has used Debrox drops for 3 days consecutively before appointment. The ears were flushed and residual cerumen was manually removed from bilateral ears with lighted curette with positive effect. The patient tolerated procedure well.
--- OUTSIDE RECORDS SUMMARY | 2025-03-10 17:36 | XMS_ITS | Patient Health Record ---
Author Organization [facility] Address [address] [place] [address] Care Team Providers Care Graphics Intern Name Role Phone Myles Eduardo MD Primary Care Provider Musa Bills [phone] Allergies Allergen (clinical drug ingredient) Drug/Non Drug [...] Problem Status W/U Status Risk Notes Problem 500392325 Encounter for screening for malignant neoplasm of colon (Z12.11) Active confirmed Problem 416417365 History of adenomatous polyp of colon (Z86.010) Active confirmed Problem Screening for malignant neoplasm of rectum (923332277) Encounter for screening for malignant neoplasm of rectum (Z12.12) Active confirmed Problem 44352073 Preprocedural examination (Z01.818) Active confirmed Problem History of polyp of colon (situation) (893985744) History of colon polyps (Z86.010) Active confirmed Problem Diverticulosis of colon (611252172) Diverticulosis of colon (K57.30) Active confirmed Plan Of Treatment Future Test Test Name Order Date COLONOSCOPY 08/22/2016 COLONOSCOPY 01/18/2022 Insurance Providers Payer Name Payer Address Payer Phone Subscriber Number Group Number Insured Name Patient Relationship to Insured Coverage Start Date Coverage End Date MEDICARE OF [place] [address] [place] [id number] [phone] [id number] OWEN CRUZ Self - patient is the insured [employer] CLAIMS [address] [place] [address] [phone] [id number] OWEN CRUZ Self - patient is the insured Medical (General) History Medical History History ICD Code Colonoscopy 03-20-2011--1 sma ll tubular adenoma removed; neg. colonoscopy [place] [address] Dumont GERD--EGD in 1996--gastritis, neg. H.pyl cj Prostate cancer--surgery as below Denies RI,DM,CVA,Lung disease,renal dise ase Negative cardiac cath before 2007 Pulmonary nodule Peptic ulcer disease in his 20's Hypercholesterolemia Asthma Asbestos exposure COVID positive 12/2021-mild Colonoscopy 10/2016 with a hyperplastic p olyp Surgical History Surgery Date(Month/Year) Radical prostate[place] [address] Javan pardo for prostate cancer Bilateral inguinal hernia Appendectomy Left knee replacement 08/2021 Tonsillectomy
== END 2025-03-10 14:43 | disposition home or self-care (01) ==
LOC: HO.HMCH 13:55
PROVIDERS: PCP Internal Medicine
DX: H61.23 Impacted cerumen, bilateral (principal)

== ENCOUNTER → 2025-03-10 13:54 | Outpatient (BNVA) | payer MEDICARE, SELFPAY | PROVIDERS: PCP Internal Medicine | DX: H61.23 Impacted cerumen, bilateral (principal) | CPT/HCPCS: 69210 ==